=== PATIENT | female | born 1970 | race Caucasian/White ===

== ENCOUNTER → 2017-04-28 | Outpatient (CLI) | payer BC | END | disposition home or self-care (01) | LOC: C.PAPS 09:23 | PROVIDERS: ATTEND Physician Assistant | DX: Z01.411 Encounter for gynecological examination (general) (routine) with abnormal findings (principal); R87.619 Unspecified abnormal cytological findings in specimens from cervix uteri ==

== ENCOUNTER → 2017-10-21 | Outpatient (CLI) | payer BC | END | disposition home or self-care (01) | LOC: C.LABSPEC 14:10 | PROVIDERS: ATTEND Physician Assistant | DX: Z30.430 Encounter for insertion of intrauterine contraceptive device (principal) ==

== ENCOUNTER 2022-11-19 12:42 | Inpatient (IN) ==
[2022-11-19 14:09] LABS: Hematocrit (blood only) 43.7 % (37.0-47.0); Hemoglobin 15.6 g/dl (12.0-16.0); Mean Corpuscular Hemoglobin 31.2 pg (25.0-34.0); Mean Corpuscular Hgb Conc 35.7 g/dL (32.0-36.0); Mean Corpuscular Volume 87.4 fL (80.0-100.0); Mean Platelet Volume 10.3 fL (9.4-12.4); Platelet Count 238 K/uL (130-400); RDW Coefficient of Variation 12.8 % (11.5-14.5); RDW Standard Deviation 40.6 fL (36.4-46.3); White Blood Count 26.15 K/ul (4.8-10.8)
[2022-11-19 14:10] LABS: Appearance Urine Clear (Clear); Bacteria Urine Automated Negative (Negative); Bilirubin Urine Negative (Negative); Blood Urine 1+ (Negative); Color Urine Dark Yellow; Epithelial Cell Urine Auto 20-30 /lpf (0-5); Glucose Urine UA Negative (Negative); Ketones Urine 2+ (Negative); Leukocyte Esterase Urine Negative (Negative); Nitrite Urine Negative (Negative); Protein Urine 1+ (Negative); Specific Gravity Urine 1.031 (1.000-1.030); Urobilinogen Urine Negative (Negative)
[2022-11-19] MEDS ORDERED: MoRPHine SULFATE 4 MG/ML 1 ML CARP\\VIAL IV PRN (14:21)
[2022-11-19] MEDS ORDERED: ONDANSETRON INJ 2 MG/ML 2 ML VIAL IV STA (14:21)
[2022-11-19] MEDS ORDERED: SODIUM CHLORIDE 0.9% 1000ML 1,000 ML IV ONE ×2 (14:21→15:38)
[2022-11-19] MEDS ORDERED: MoRPHine SULFATE 4 MG/ML 1 ML CARP\\VIAL IV STA (14:21)
[2022-11-19 14:26] LABS: Albumin Globulin Ratio 1.2 (0.9-2); Albumin Level 4.6 gm/dl (3.4-5.0); BUN Creatinine Ratio 14.4 (10-20); Bilirubin,Total 1.1 mg/dl (0.2-1.0); Calcium 9.3 mg/dl (8.5-10.1); Creatinine Clr Calc Pharmacy 73.4 ml/min; Est GFR (African American) 77.8 ml/min; Est GFR (Non-African American) 67.2 ml/min; Globulin 3.9 gm/dl (2.5-4.0); Potassium 3.6 mmol/L (3.5-5.1); Total Protein 8.5 gm/dl (6.0-8.3)
--- NOTE | 2022-11-19 14:27 | Emergency Department Note ---
Impression & Plan Acute appendicitis, Abdominal pain ED Provider Note NAME: DOMINIC VASQUEZ AGE: 52 SEX: F : 1970 ARRIVES VIA: Walk-In INFORMANT: Patient, ED PROVIDER(S): John Hare DO CHIEF COMPLAINT: Abdominal pain HPI: The patient is a 52-year-old female who presented to the emergency department for an evaluation of abdominal pain. The patient states she started noticing abdominal pain over the last few days. Initially she started having loose bowel movements but she has not had any bowel movements over the last 24 hours. She also notes some nausea vomiting recently. She called her family doctor this morning to be seen but they were not willing to see her and stated that she would need testing but they were not willing to order so she was referred to the emergency department for further evaluation. She denies having any chest pain or difficulty breathing. ROS: See above HPI for pertinent positives & negatives. A total of 10 systems reviewed and were otherwise negative. PAST MEDICAL HISTORY: See Below PAST SURGICAL HISTORY: See Below FAMILY HISTORY: See Below SOCIAL HISTORY: See Below HOME MEDICATIONS: See Below ALLERGIES: See Below VITALS: See Below PHYSICAL EXAMINATION: GENERAL: The patient is awake and alert. The patient is very anxious appearing and appears to be uncomfortable. EYES: The conjunctivae are clear. The pupils are round and reactive. EARS, NOSE, MOUTH AND THROAT: The nose is without any evidence of any deformity. NECK: The neck is nontender and supple. RESPIRATORY: Normal respiratory effort is noted there is no evidence of wheezing rhonchi or rales CARDIOVASCULAR: Tachycardic and regular heart sounds were noted to auscultation. There is no definite murmur. GASTROINTESTINAL: The abdomen was distended and diffusely tender. There is guarding the right lower quadrant. MUSCULOSKELETAL/EXTREMITIES: There is no evidence of gross deformity full range of motion is noted in the hips and shoulders. SKIN: There is no obvious evidence of any rash. There are no petechiae, pallor or cyanosis noted. NEUROLOGIC: Patient is awake alert and oriented x3. MEDICAL DECISION MAKING: The patient is a 52-year-old female who presented to the emergency department for an evaluation of abdominal pain. The patient's history and physical exam appear to be consistent with an acute surgical abdomen. The patient had an elevated white blood cell count noted on laboratory studies. For this reason further laboratory and radiographic studies were obtained. The patient was treated with IV fluids and IV pain medication in the emergency department. She was also treated with IV antibiotics. CT of the abdomen and pelvis was obtained and appear to be consistent with ruptured appendicitis with abscess formation. I discussed the patient's condition with the on-call general surgeon. They have agreed to evaluate the patient in the emergency department for further management and disposition. Triage Nursing notes reviewed. Prior medical records reviewed Vital Signs: reviewed and remarkable for no significant abnormalities Differential diagnosis: Appendicitis, ovarian cyst, ovarian torsion, ectopic , TOA, PID, infections, diverticulitis, UTI, obstruction, mesenteric ischemia, aortic pathology, inflammatory bowel disease, renal colic, PUD, pancreatitis, biliary pathology, hernia, volvulus, constipation, as well as other pathologies. ER treatment provided: See below Diagnostics interpreted by me: ECG: EKG was obtained in the emergency department. My interpretation is sinus tachycardia 121 bpm. There is no ectopy. Nonspecific ST segment abnormalities were noted. No previous tracing was available. Cardiac Monitoring: An order was placed for continuous cardiac monitoring. The monitor shows a rate of 79 bpm with sinus rhythm. Laboratory studies: As stated above and show below. Imaging studies: See below. Radiographic imaging was reviewed by myself Consultation(s): I discussed this case with Dr Zacarias Past Med/Surg History Medical History Atypical squamous cells of undetermined significance (ASC-US) on cervical Pap smear HEYDI I (cervical intraepithelial neoplasia I) History of chicken pox History of migraine IUD (intrauterine device) in place leanna- 10/21/17 Varicose veins of legs Surgical History H/O colposcopy with cervical biopsy H/O LEEP 02/26, persistent heydi 1 History of surgical removal of skin lesion Family History Father Bleeding disorder Cardiac disorder Mother Dementia Breast cancer, Onset Age: 78 Denies family history of Ovarian cancer Colorectal cancer Social History Smoking Status: Former smoker Hx Alcohol Use: Yes Alcohol Intake Frequency Comment: 1-2 times per year Hx Substance Use: No Preferred Language: Japanese Communication Ability: Effective Visual Impairment: No Limitations Hearing Ability: Normal Customer Advocacy Manager Required: No Beliefs That Will Affect Care: None marital status: Current Living Situation: Family current occupational status: employed current occupation: self employed Feels Safe at Home: Yes Childhood Exposure to Second-Hand Smoke: Yes Dental Care, Regularly: Yes Physical Activity Frequency: Does not Exercise Seatbelt Use: always Sunscreen Use: Yes (sometimes) Allergies Allergies Allergy/AdvReac Type Severity Reaction Status Date / Time No Known Drug Allergies Allergy Verified 10/05/22 15:12 Home Meds Home Medications Medication Instructions Recorded Confirmed diphenhydramine HCl 25 mg tablet PO PRN 07/11/19 10/05/22 multivitamin [Daily Multiple] 1 ea PO DAILY 08/21/19 10/05/22 cholecalciferol (vitamin D3) PO DAILY 02/21/20 10/05/22 riboflavin (vitamin B2) PO DAILY 02/21/20 10/05/22 coenzyme Q10 100 mg capsule 100 mg PO DAILY 09/29/20 10/05/22 levonorgestrel 21 mcg/24 hours (8 intrauterine 12/25/21 10/05/22 yrs) 52 mg intrauterine device (Mirena) topiramate 100 mg tablet 50 mg PO DAILY 10/05/22 10/05/22 Previous Rx's Medication Instructions Recorded estradiol 0.01% (0.1 mg/gram) 1 g vaginal .COMPLEX #42.5 grams 01/01/22 vaginal cream famotidine 40 mg tablet See Rx Instructions .Route 01/18/22 .COMPLEX #90 tabs cyclobenzaprine 10 mg tablet 10 mg PO HS PRN muscle spasm #30 05/20/22 tabs propranolol 80 mg capsule,24 80 mg PO DAILY #30 caps 08/23/22 hr,extended release sumatriptan succinate 100 mg tablet See Rx Instructions PO .COMPLEX 11/15/22 #18 tabs Results & Data (ED) Vital Signs Vital Signs - 24 hr 11/19/22 12:48 11/19/22 14:33 11/19/22 16:59 Temperature 36.8 C 37.7 C H Temperature Source Temporal Artery Scan Oral Pulse Rate 136 H Pulse Rate [Apical] Pulse Rate [Finger] 112 H 91 H Pulse Rhythm [Apical] Pulse Rhythm [Finger] Regular Pulse Strength [Finger] Normal Respiratory Rate 22 Respiratory Effort / Characteristics Non-Labored Spontaneous Non-Labored Spontaneous Non-Labored Spontaneous Respiratory Depth Normal Normal Normal Respiratory Pattern Regular Regular Regular Blood Pressure 123/85 Blood Pressure [Left Arm] Blood Pressure [Right Arm] 125/83 141/76 H Blood Pressure Mean 97 Blood Pressure Mean [Left Arm] Blood Pressure Mean [Right Arm] 97 97 Blood Pressure Position [Left Arm] Blood Pressure Position [Right Arm] Semi-fowlers Pulse Oximetry 98 95 98 Oxygen Delivery Method Room Air Room Air Room Air Oxygen Flow Rate Sepsis Recent Fever Within 48 Hours No Sepsis New/Unexplained Change in Mental Status No Sepsis Action Taken by Nursing No Action Required 11/19/22 16:55 11/19/22 19:49 11/19/22 19:55 Temperature 37.7 C H 36.3 C L Temperature Source Oral Temporal Artery Scan Pulse Rate Pulse Rate [Apical] 85 77 Pulse Rate [Finger] 91 H Pulse Rhythm [Apical] Regular Regular Pulse Rhythm [Finger] Regular Pulse Strength [Finger] Normal Respiratory Rate 22 16 16 Respiratory Effort / Characteristics Non-Labored Spontaneous Non-Labored Spontaneous Non-Labored Spontaneous Respiratory Depth Normal Normal Normal Respiratory Pattern Regular Regular Regular Blood Pressure Blood Pressure [Left Arm] 135/77 139/77 Blood Pressure [Right Arm] 141/76 H Blood Pressure Mean Blood Pressure Mean [Left Arm] 96 97 Blood Pressure Mean [Right Arm] 97 Blood Pressure Position [Left Arm] Lying Lying Blood Pressure Position [Right Arm] Semi-fowlers Pulse Oximetry 98 96 98 Oxygen Delivery Method Room Air Oxymask Oxymask Oxygen Flow Rate 6 6 Sepsis Recent Fever Within 48 Hours Sepsis New/Unexplained Change in Mental Status Sepsis Action Taken by Nursing 11/19/22 20:05 Temperature Temperature Source Pulse Rate Pulse Rate [Apical] 79 Pulse Rate [Finger] Pulse Rhythm [Apical] Regular Pulse Rhythm [Finger] Pulse Strength [Finger] Respiratory Rate 20 Respiratory Effort / Characteristics Non-Labored Spontaneous Respiratory Depth Normal Respiratory Pattern Regular Blood Pressure Blood Pressure [Left Arm] 137/84 Blood Pressure [Right Arm] Blood Pressure Mean Blood Pressure Mean [Left Arm] 101 Blood Pressure Mean [Right Arm] Blood Pressure Position [Left Arm] Semi-fowlers Blood Pressure Position [Right Arm] Pulse Oximetry 97 Oxygen Delivery Method Nasal Cannula Oxygen Flow Rate 4 Sepsis Recent Fever Within 48 Hours Sepsis New/Unexplained Change in Mental Status Sepsis Action Taken by [facility] Medications Current Medication List: was personally reviewed by me Laboratory Data Attestation: I reviewed the patient's lab results. 11/19/22 13:45 11/19/22 13:45 Lab Results 11/19/22 11/19/22 11/19/22 Range/Units 13:45 13:45 13:45 WBC 26.15 H (4.8-10.8) K/ul RBC 5.00 (4.20-5.40) M/uL Hgb 15.6 (12.0-16.0) g/dl Hct 43.7 (37.0-47.0) % MCV 87.4 (80.0-100.0) fL MCH 31.2 (25.0-34.0) pg MCHC 35.7 (32.0-36.0) g/dL RDW Std Deviation 40.6 (36.4-46.3) fL RDW Coeff of [place] 12.8 (11.5-14.5) % Plt Count 238 (130-400) K/uL MPV 10.3 (9.4-12.4) fL Immature Gran % (Auto) 0.7 % Neut % (Auto) 92.9 % Lymph % (Auto) 2.8 % [place] % (Auto) 3.4 % Eos % (Auto) 0.0 % Baso % (Auto) 0.2 % Neut # (Auto) 24.32 H (1.40-6.50) K/uL Lymph # (Auto) 0.72 L (1.2-3.4) K/uL [place] # (Auto) 0.88 H (0.11-0.59) K/uL Eos # (Auto) 0.00 (0-0.50) K/uL Baso # (Auto) 0.04 (0-0.2) K/uL Immature Gran # (Auto) 0.19 (0.01-0.20) K/uL Toxic Vacuolation 1+ Sodium 133 L (136-145) mmol/L Potassium 3.6 (3.5-5.1) mmol/L Chloride 100 (98-107) mmol/L Carbon Dioxide 21 (21-32) mmol/L Anion Gap 12 H (3-11) BUN 14 (6-23) mg/dl Creatinine 0.97 (0.6-1.2) mg/dl Est Cr Clr Drug Dosing 73.4 ml/min Est GFR ( Amer) 77.8 ml/min Est GFR (Non-Af Amer) 67.2 ml/min BUN/Creatinine Ratio 14.4 (10-20) Glucose 166 H (70-99(Fasting)) mg/dl Calcium 9.3 (8.5-10.1) mg/dl Total Bilirubin 1.1 H (0.2-1.0) mg/dl AST 17 (13-39) U/L ALT 11 (7-52) U/L Alkaline Phosphatase 69 (34-104) U/L Troponin I High Sens 16.0 H (0-14) pg/ml Total Protein 8.5 H (6.0-8.3) gm/dl Albumin 4.6 (3.4-5.0) gm/dl Globulin 3.9 (2.5-4.0) gm/dl Albumin/Globulin Ratio 1.2 (0.9-2) Lipase 9 L (11-82) U/L HCG, Qual Negative (Negative) Urine Color Urine Appearance (Clear) Urine pH (4.5-7.5) Ur Specific [place] (1.000-1.030) Urine Protein (Negative) Urine Glucose (UA) (Negative) Urine Ketones (Negative) Urine Blood (Negative) Urine Nitrite (Negative) Urine Bilirubin (Negative) Urine Urobilinogen (Negative) Ur Leukocyte Esterase (Negative) Urine WBC (Auto) (0-5) /hpf Urine RBC (Auto) (0-4) /hpf U Hyaline Cast (Auto) (0-5) /lpf U Epithel Cells (Auto) (0-5) /lpf Urine Bacteria (Auto) (Negative) SARS-CoV-2 (PCR) (Negative) Influenza Type A (PCR) (Neg) Influenza Type B (PCR) (Neg) RSV (RT-PCR) (Neg) 11/19/22 11/19/22 Range/Units 13:50 13:50 WBC (4.8-10.8) K/ul RBC (4.20-5.40) M/uL Hgb (12.0-16.0) g/dl Hct (37.0-47.0) % MCV (80.0-100.0) fL MCH (25.0-34.0) pg MCHC (32.0-36.0) g/dL RDW Std Deviation (36.4-46.3) fL RDW Coeff of [place] (11.5-14.5) % Plt Count (130-400) K/uL MPV (9.4-12.4) fL Immature Gran % (Auto) % Neut % (Auto) % Lymph % (Auto) % [place] % (Auto) % Eos % (Auto) % Baso % (Auto) % Neut # (Auto) (1.40-6.50) K/uL Lymph # (Auto) (1.2-3.4) K/uL [place] # (Auto) (0.11-0.59) K/uL Eos # (Auto) (0-0.50) K/uL Baso # (Auto) (0-0.2) K/uL Immature Gran # (Auto) (0.01-0.20) K/uL Toxic Vacuolation Sodium (136-145) mmol/L Potassium (3.5-5.1) mmol/L Chloride (98-107) mmol/L Carbon Dioxide (21-32) mmol/L Anion Gap (3-11) BUN (6-23) mg/dl Creatinine (0.6-1.2) mg/dl Est Cr Clr Drug Dosing ml/min Est GFR ( Amer) ml/min Est GFR (Non-Af Amer) ml/min BUN/Creatinine Ratio (10-20) Glucose (70-99(Fasting)) mg/dl Calcium (8.5-10.1) mg/dl Total Bilirubin (0.2-1.0) mg/dl AST (13-39) U/L ALT (7-52) U/L Alkaline Phosphatase (34-104) U/L Troponin I High Sens (0-14) pg/ml Total Protein (6.0-8.3) gm/dl Albumin (3.4-5.0) gm/dl Globulin (2.5-4.0) gm/dl Albumin/Globulin Ratio (0.9-2) Lipase (11-82) U/L HCG, Qual (Negative) Urine Color Dark Yellow Urine Appearance Clear (Clear) Urine pH 6.0 (4.5-7.5) Ur Specific [place] 1.031 H (1.000-1.030) Urine Protein 1+ H (Negative) Urine Glucose (UA) Negative (Negative) Urine Ketones 2+ H (Negative) Urine Blood 1+ H (Negative) Urine Nitrite Negative (Negative) Urine Bilirubin Negative (Negative) Urine Urobilinogen Negative (Negative) Ur Leukocyte Esterase Negative (Negative) Urine WBC (Auto) 1-5 (0-5) /hpf Urine RBC (Auto) 5-10 H (0-4) /hpf U Hyaline Cast (Auto) 1-5 (0-5) /lpf U Epithel Cells (Auto) 20-30 H (0-5) /lpf Urine Bacteria (Auto) Negative (Negative) SARS-CoV-2 (PCR) NEGATIVE (Negative) Influenza Type A (PCR) Negative (Neg) Influenza Type B (PCR) Negative (Neg) RSV (RT-PCR) Negative (Neg) Administered Medications Fentanyl Citrate (Fentanyl Citrate 100 Mcg/2 Ml Vial) 50 mcg IV Q5M PRN PRN Reason: PACU Use Only-Pain Stop: 11/20/22 01:14 Last Admin: 11/19/22 20:14 Dose: 50 mcg Documented By: [facility] Discontinued Medications Bacitracin (Bacitracin Oint 15 Gm Tube) Confirm Administered Dose 45 appln .ROUTE .STK-MED ONE Stop: 11/19/22 16:23 Last Admin: 11/19/22 19:45 Dose: 45 appln Documented By: QASIM Bupivacaine HCl (Bupivacaine 0.5 % 5 Mg/1 Ml Mpf 30ml Vial) Confirm Administered Dose 30 ml .ROUTE .STK-MED ONE Stop: 11/19/22 16:23 Last Admin: 11/19/22 19:19 Dose: 20 ml Documented By: QASIM Sodium Chloride (Nss 1000ml) 1,000 mls @ 999 mls/hr IV .Q1H1M ONE Stop: 11/19/22 15:21 Last Infusion: 11/19/22 15:57 Dose: 0 mls/hr Documented By: Admin: 11/19/22 14:28 Dose: 999 mls/hr Documented By: ALFREDO Piperacillin Sod/Tazobactam Sod (Zosyn) 4.5 gm in 120 mls @ 240 mls/hr IV NOW ONE Stop: 11/19/22 16:07 Last Admin: 11/19/22 15:54 Dose: 240 mls/hr Documented By: JORGITO Sodium Chloride (Nss 1000ml) 1,000 mls @ 999 mls/hr IV .Q1H1M ONE Stop: 11/19/22 16:38 Last Admin: 11/19/22 15:54 Dose: 999 mls/hr Documented By: JORGITO Ioversol (Optiray 350 100ml) 90 ml IV ONCE ONE Stop: 11/19/22 15:30 Last Admin: 11/19/22 15:29 Dose: 90 ml Documented By: MAIKOL Lidocaine HCl (Lidocaine 1% Local 20 Ml Vial) Confirm Administered Dose 1 ml .ROUTE .STK-MED ONE Stop: 11/19/22 16:41 Last Admin: 11/19/22 19:20 Dose: 20 ml Documented By: QASIM Morphine Sulfate (Morphine Sulfate 4 Mg/Ml 1 Ml Carp\Vial) 4 mg IV NOW STA Stop: 11/19/22 14:22 Last Admin: 11/19/22 14:29 Dose: 4 mg Documented By: ALFREDO Ondansetron HCl (Ondansetron Inj 2 Mg/Ml 2 Ml Vial) 4 mg IV NOW STA Stop: 11/19/22 14:22 Last Admin: 11/19/22 14:28 Dose: 4 mg Documented By: ALFREDO Vancomycin HCl (Vancomycin Hcl 1000mg/20ml Vial) Confirm Administered Dose 50 mg .ROUTE .STK-MED ONE Stop: 11/19/22 18:13 Last Admin: 11/19/22 19:19 Dose: 1,000 mg Documented By: QASIM Imaging Data Radiologist's Impression: Abdomen/Pelvis CT 11/19/22 14:21 CT SCAN OF THE ABDOMEN AND PELVIS WITH IV CONTRAST CLINICAL HISTORY: Right lower quadrant abdominal pain. COMPARISON STUDY: No priors. TECHNIQUE: Following the IV administration of 90 cc of Optiray 350, CT scan of the abdomen and pelvis is performed from the lung bases to the proximal femora. Images are reviewed in the axial, sagittal, and coronal planes. IV contrast was administered without complication. A dose lowering technique was utilized adhering to the principles of ALARA. CT DOSE: 722.62 mGycm FINDINGS: Lung bases: The heart is normal in size and without pericardial effusion. The lung bases are clear noting dependent atelectasis. There is a small hiatal hernia. Liver: The contrast-enhanced liver is normal in size, contour, and attenuation. There is no intrahepatic biliary ductal dilatation. The hepatic veins and portal veins are patent. Gallbladder: Unremarkable. Spleen: Normal in size and attenuation. Pancreas: Unremarkable. Adrenal glands: Unremarkable. Kidneys: The contrast enhanced kidneys are normal in size and without hydronephrosis. The kidneys enhance symmetrically. There are bilateral renal sinus cysts. A 12 mm cortical cyst is noted in the left upper pole. Abdominal vasculature: The abdominal aorta is normal in course and caliber noting scattered foci of atherosclerotic calcification. Bowel: There is no bowel obstruction. There is evidence of severe acute perforated appendicitis. A portion of the abnormal and dilated appendix is seen on image #270 and measures 16mm in diameter. There is significant surrounding inflammation and fluid. A crescentic pocket of gas and fluid seen immediately posterior to the appendix on image #243 measures 3.8 x 3.1 x 4.3 cm. This likely represents a developing abscess. There is wall thickening of the cecum and terminal ileum, related to adjacent appendicitis. Peritoneum: Foci of intraperitoneal free air are seen in the right lower quadrant adjacent to the perforated appendix. There is fluid tracking in the right paracolic gutter. Lymphadenopathy: Prominent mesenteric lymph nodes in the right lower quadrant are likely reactive. Pelvic viscera: The bladder, uterus, and adnexa are normal as visualized noting an intrauterine device in place. Skeletal structures: No lytic or blastic lesions are seen. There is mild lumbosacral spondylosis. Soft tissues: A 3.3 cm sebaceous cyst is noted in the left lower back. IMPRESSION: 1. Severe acute appendicitis with perforation as detailed above. 2. Foci of intraperitoneal free air are seen in the right lower quadrant and a crescentic pocket of gas and fluid around the appendix is consistent with a developing abscess. No drainable collection is seen at this time. 3. Wall thickening and inflammation of the cecum and terminal ileum is related to adjacent appendicitis. 4. There is no bowel obstruction. 5. Additional findings as above. ACT 112: Negative or not required by law. Electronically signed by: Ravinder Mora M.D. 11/19/2022 3:41 PM Discharge Plan Visit Data Chief Complaint: Abdominal Pain Stated Complaint: ABD PAIN, VOMITING, DR REF OVER ED Provider: John Hare Discharge Problem: Acute appendicitis, Abdominal pain Patient Disposition: Being Evaluated by Surgeon Discharge Instructions Interventions: ED Discharge Assessment Last Done: 11/19/22 18:07
[2022-11-19 14:32] LABS: Basophils # (auto) 0.04 K/uL (0-0.2); Basophils % (auto) 0.2 %; Immature Granulocytes # (auto) 0.19 K/uL (0.01-0.20); Immature Granulocytes % (auto) 0.7 %; Lymphocytes # (auto) 0.72 K/uL (1.2-3.4); Lymphocytes % (auto) 2.8 %; Monocytes # (auto) 0.88 K/uL (0.11-0.59); Monocytes % (auto) 3.4 %; Neutrophils # (auto) 24.32 K/uL (1.40-6.50); Neutrophils % (auto) 92.9 %; Toxic Vacuolation 1+
[2022-11-19 14:43] LABS: Influenza A virus by PCR Negative (Neg); Influenza B virus by PCR Negative (Neg); RSV by PCR Negative (Neg); SARS CoV2 RNA(COVID-19) Ceph NEGATIVE (Negative)
[2022-11-19 15:26] LABS: Pregnancy Test, Serum Negative (Negative)
[2022-11-19] MEDS ORDERED: OPTIRAY 350 100ml IV ONE (15:29)
[2022-11-19] MEDS ORDERED: PIPERACILLIN/TAZOBACTAM 4.5 GM/120 ML BAG IV ONE (15:38)
--- NOTE | 2022-11-19 15:43 | CT Scan Report ---
CT SCAN OF THE ABDOMEN AND PELVIS WITH IV CONTRAST CLINICAL HISTORY: Right lower quadrant abdominal pain. COMPARISON STUDY: No priors. TECHNIQUE: Following the IV administration of 90 cc of Optiray 350, CT scan of the abdomen and pelvi s is performed from the lung bases to the proximal femora. Images are reviewed in the axial, sagittal , and coronal planes. IV contrast was administered without complication. A dose lowering technique wa s utilized adhering to the principles of ALARA. CT DOSE: 722.62 mGycm FINDINGS: Lung bases: The heart is normal in size and without pericardial effusion. The lung bases are clear no ting dependent atelectasis. There is a small hiatal hernia. Liver: The contrast-enhanced liver is normal in size, contour, and attenuation. There is no intrahepa tic biliary ductal dilatation. The hepatic veins and portal veins are patent. Gallbladder: Unremarkable. Spleen: Normal in size and attenuation. Pancreas: Unremarkable. Adrenal glands: Unremarkable. Kidneys: The contrast enhanced kidneys are normal in size and without hydronephrosis. The kidneys enh ance symmetrically. There are bilateral renal sinus cysts. A 12 mm cortical cyst is noted in the left upper pole. Abdominal vasculature: The abdominal aorta is normal in course and caliber noting scattered foci of a therosclerotic calcification. Bowel: There is no bowel obstruction. There is evidence of severe acute perforated appendicitis. A po rtion of the abnormal and dilated appendix is seen on image #270 and measures 16mm in diameter. There is significant surrounding inflammation and fluid. A crescentic pocket of gas and fluid seen immedia tely posterior to the appendix on image #243 measures 3.8 x 3.1 x 4.3 cm. This likely represents a de veloping abscess. There is wall thickening of the cecum and terminal ileum, related to adjacent appen dicitis. Peritoneum: Foci of intraperitoneal free air are seen in the right lower quadrant adjacent to the per forated appendix. There is fluid tracking in the right paracolic gutter. Lymphadenopathy: Prominent mesenteric lymph nodes in the right lower quadrant are likely reactive. Pelvic viscera: The bladder, uterus, and adnexa are normal as visualized noting an intrauterine devic e in place. Skeletal structures: No lytic or blastic lesions are seen. There is mild lumbosacral spondylosis. Soft tissues: A 3.3 cm sebaceous cyst is noted in the left lower back. IMPRESSION: 1. Severe acute appendicitis with perforation as detailed above. 2. Foci of intraperitoneal free air are seen in the right lower quadrant and a crescentic pocket of g as and fluid around the appendix is consistent with a developing abscess. No drainable collection is seen at this time. 3. Wall thickening and inflammation of the cecum and terminal ileum is related to adjacent appendicit is. 4. There is no bowel obstruction. 5. Additional findings as above. ACT 112: Negative or not required by law. Electronically signed by: Ravinder Mora M.D. 11/19/2022 3:41 PM
[2022-11-19] MEDS ORDERED: BUPIVACAINE 0.5 % 5 MG/1 ML MPF 30ML VIAL ONE (16:22)
[2022-11-19] MEDS ORDERED: BACITRACIN OINT 15 GM TUBE ONE (16:22)
[2022-11-19] MEDS ORDERED: ONDANSETRON INJ 2 MG/ML 2 ML VIAL ONE (16:40)
[2022-11-19] MEDS ORDERED: LIDOCAINE 1% LOCAL 20 ML VIAL ONE (16:40)
[2022-11-19] MEDS ORDERED: LIDOCAINE 2% MPF LOCAL 5 ML VIAL INFIL ONE (16:40)
[2022-11-19] MEDS ORDERED: PROPOFOL IV EMULSION 10 MG/ML 20 ML VIAL IV ONE (16:40)
[2022-11-19] MEDS ORDERED: ROCURONIUM BROMIDE 10 MG/ML 5 ML VIAL IV ONE (16:40)
[2022-11-19] MEDS ORDERED: DEXAMETHASONE SOD INJ 4 MG/ML VIAL ONE (16:40)
[2022-11-19] MEDS ORDERED: fentaNYL citrate 100 MCG/2 ML VIAL ONE ×2 (16:41→18:14)
[2022-11-19] MEDS ORDERED: MIDAZOLAM HCL 1 MG/ML 2ML VIAL ONE (16:41)
--- NOTE | 2022-11-19 17:02 | Surgery Consultation ---
Date of Consultation November 19, 2022 Assessment & Plan (1) Perforated appendicitis: pt is a 52 year-old female who presents to ER with 2 days history RLQ pain, CT scan - perforated appendicitis, IMP: perforated appendicitis, plan, I recommend to do laparoscopic appendectomy, possible open , D/W benefits, risks and alternatives of the surgery, the risks - infection, bleeding, abscess, bowel leak, bowel obstruction, scar, pain, sepsis,renal failure pt understood, she signed informed consent, I answered all questions, pre-op iv antibiotic, History of Present Illness Reason for Consultation: perforated appendicitis Requesting Physician: John Hare DO History of Present Illness CHIEF COMPLAINT: Abdominal pain HPI: The patient is a 52-year-old female who presented to the emergency department for an evaluation of abdominal pain. The patient states she started noticing abdominal pain over the last few days. Initially she started having loose bowel movements but she has not had any bowel movements over the last 24 hours. She also notes some nausea vomiting recently. She called her family doctor this morning to be seen but they were not willing to see her and stated that she would need testing but they were not willing to order so she was r eferred to the emergency department for further evaluation. She denies having any chest pain or difficulty breathing. I ( Cayla Zacarias MD ) got a call for consult perforated appendicitis, I reviewed pt's H/P , labs and CT scan with pt, ROS: See above HPI for pertinent positives & negatives. A total of 10 systems reviewed and were otherwise negative. Allergies Allergy/AdvReac Type Severity Reaction Status Date / Time No Known Drug Allergies Allergy Verified 10/05/22 15:12 Home Medications Medication Instructions Recorded Confirmed Type diphenhydramine HCl 25 mg tablet PO PRN 07/11/19 10/05/22 History multivitamin [Daily Multiple] 1 ea PO DAILY 08/21/19 10/05/22 History cholecalciferol (vitamin D3) PO DAILY 02/21/20 10/05/22 History riboflavin (vitamin B2) PO DAILY 02/21/20 10/05/22 History coenzyme Q10 100 mg capsule 100 mg PO DAILY 09/29/20 10/05/22 History levonorgestrel 21 mcg/24 hours (8 intrauterine 12/25/21 10/05/22 History yrs) 52 mg intrauterine device (Mirena) estradiol 0.01% (0.1 mg/gram) 1 g vaginal .COMPLEX #42.5 grams 01/01/22 10/05/22 Rx vaginal cream famotidine 40 mg tablet See Rx Instructions .Route 01/18/22 10/05/22 Rx .COMPLEX #90 tabs cyclobenzaprine 10 mg tablet 10 mg PO HS PRN muscle spasm #30 05/20/22 10/05/22 Rx tabs propranolol 80 mg capsule,24 80 mg PO DAILY #30 caps 08/23/22 10/05/22 Rx hr,extended release topiramate 100 mg tablet 50 mg PO DAILY 10/05/22 10/05/22 History sumatriptan succinate 100 mg tablet See Rx Instructions PO .COMPLEX 11/15/22 Rx #18 tabs Patient History Medical History Atypical squamous cells of undetermined significance (ASC-US) on cervical Pap smear HEYDI I (cervical intraepithelial neoplasia I) History of chicken pox History of migraine IUD (intrauterine device) in place leanna- 10/21/17 Varicose veins of legs Surgical History H/O colposcopy with cervical biopsy H/O LEEP 02/26, persistent heydi 1 History of surgical removal of skin lesion Family History Father Bleeding disorder Cardiac disorder Mother Dementia Breast cancer, Onset Age: 78 Denies family history of Ovarian cancer Colorectal cancer Social History Smoking Status: Former smoker Hx Alcohol Use: Yes Alcohol Intake Frequency Comment: 1-2 times per year Hx Substance Use: No Preferred Language: Yakut Communication Ability: Effective Visual Impairment: No Limitations Hearing Ability: Normal Cooker Meal Required: No Beliefs That Will Affect Care: None marital status: Current Living Situation: Family current occupational status: employed current occupation: self employed Feels Safe at Home: Yes Childhood Exposure to Second-Hand Smoke: Yes Dental Care, Regularly: Yes Physical Activity Frequency: Does not Exercise Seatbelt Use: always Sunscreen Use: Yes (sometimes) Physical Exam Constitutional: acute distress, HR 112, T 36.8, BP 125/83, o2 sat 95 % Eyes: PERRL, conjunctivae normal, anicteric sclerae Neck: trachea midline, no thyromegaly Respiratory: normal respiratory effort, lungs clear to auscultation Cardiovascular: RRR, no murmur, no edema Gastrointestinal (Abdomen): soft, tenderness with rebound pain at RLQ, no distend, BS +, Musculoskeletal: no cyanosis or clubbing, extremities motor strength 5/5 Neurologic: patellar DTR's 2+ bilat, sensation intact Psychiatric: A+Ox3, euthymic affect Results & Data ([facility]) Vital Signs (Past 12 Hours) Vital Signs Temp Pulse Pulse Resp BP BP Pulse Ox 11/19/22 16:55 37.7 C H 91 H 22 141/76 H 98 11/19/22 14:33 112 H 18 125/83 95 11/19/22 12:48 36.8 C 136 H 20 123/85 98 O2 Del Method 11/19/22 16:55 Room Air 11/19/22 14:33 Room Air 11/19/22 12:48 Room Air Laboratory Results Abnormal lab results 11/19/22 11/19/22 11/19/22 Range/Units 13:45 13:45 13:50 WBC 26.15 H (4.8-10.8) K/ul Neut # (Auto) 24.32 H (1.40-6.50) K/uL Lymph # (Auto) 0.72 L (1.2-3.4) K/uL [place] # (Auto) 0.88 H (0.11-0.59) K/uL Sodium 133 L (136-145) mmol/L Anion Gap 12 H (3-11) Glucose 166 H (70-99(Fasting)) mg/dl Total Bilirubin 1.1 H (0.2-1.0) mg/dl Troponin I High Sens 16.0 H (0-14) pg/ml Total Protein 8.5 H (6.0-8.3) gm/dl Lipase 9 L (11-82) U/L Ur Specific [place] 1.031 H (1.000-1.030) Urine Protein 1+ H (Negative) Urine Ketones 2+ H (Negative) Urine Blood 1+ H (Negative) Urine RBC (Auto) 5-10 H (0-4) /hpf U Epithel Cells (Auto) 20-30 H (0-5) /lpf Diagnostic Findings CT SCAN OF THE ABDOMEN AND PELVIS WITH IV CONTRAST CLINICAL HISTORY: Right lower quadrant abdominal pain. COMPARISON STUDY: No priors. TECHNIQUE: Following the IV administration of 90 cc of Optiray 350, CT scan of the abdomen and pelvis is performed from the lung bases to the proximal femora. Images are reviewed in the axial, sagittal, and coronal planes. IV contrast was administered without complication. A dose lowering technique was utilized adhering to the principles of ALARA. CT DOSE: 722.62 mGycm FINDINGS: Lung bases: The heart is normal in size and without pericardial effusion. The lung bases are clear noting dependent atelectasis. There is a small hiatal hernia. Liver: The contrast-enhanced liver is normal in size, contour, and attenuation. There is no intrahepatic biliary ductal dilatation. The hepatic veins and portal veins are patent. Gallbladder: Unremarkable. Spleen: Normal in size and attenuation. Pancreas: Unremarkable. Adrenal glands: Unremarkable. Kidneys: The contrast enhanced kidneys are normal in size and without hydronephrosis. The kidneys enhance symmetrically. There are bilateral renal sinus cysts. A 12 mm cortical cyst is noted in the left upper pole. Abdominal vasculature: The abdominal aorta is normal in course and caliber noting scattered foci of atherosclerotic calcification. Bowel: There is no bowel obstruction. There is evidence of severe acute perforated appendicitis. A portion of the abnormal and dilated appendix is seen on image #270 and measures 16mm in diameter. There is significant surrounding inflammation and fluid. A crescentic pocket of gas and fluid seen immediately posterior to the appendix on image #243 measures 3.8 x 3.1 x 4.3 cm. This likely represents a developing abscess. There is wall thickening of the cecum and te rminal ileum, related to adjacent appendicitis. Peritoneum: Foci of intraperitoneal free air are seen in the right lower quadrant adjacent to the perforated appendix. There is fluid tracking in the r ight paracolic gutter. Lymphadenopathy: Prominent mesenteric lymph nodes in the right lower quadrant are likely reactive. Pelvic viscera: The bladder, uterus, and adnexa are normal as visualized noting an intrauterine device in place. Skeletal structures: No lytic or blastic lesions are seen. There is mild lumbosacral spondylosis. Soft tissues: A 3.3 cm sebaceous cyst is noted in the left lower back. IMPRESSION: 1. Severe acute appendicitis with perforation as detailed above. 2. Foci of intraperitoneal free air are seen in the right lower quadrant and a crescentic pocket of gas and fluid around the appendix is consistent with a developing abscess. No drainable collection is seen at this time. 3. Wall thickening and inflammation of the cecum and terminal ileum is related to adjacent appendicitis. 4. There is no bowel obstruction. 5. Additional findings as above.
--- NOTE | 2022-11-19 17:07 | History & Physical Bridge Note ---
Date of Service November 19, 2022 History & Physical Bridge Note I have examined the patient, reviewed the History & Physical and in the interval since the performance of the History & Physical I have noted the following changes of clinical significance: no changes noted
--- NOTE | 2022-11-19 17:12 | Anesthesiology Consultation ---
Date of Service November 19, 2022 Assessment & Plan Chart Review Chart Review: Acceptable Risk for Surgery Consults Requested none History Surgery Operation Date: 11/19/22 15:35 Proposed Procedures p Perforated Laparoscopic Appendectomy - Cayla Zacarias MD Height/Weight Height: 5 ft 10 in Weight: 78.2 kg Allergies Allergy/AdvReac Type Severity Reaction Status Date / Time No Known Drug Allergies Allergy Verified 10/05/22 15:12 Medications Home Medications Medication Instructions Recorded Confirmed Last Taken diphenhydramine HCl 25 mg tablet PO PRN 07/11/19 10/05/22 Unknown multivitamin [Daily Multiple] 1 ea PO DAILY 08/21/19 10/05/22 Unknown cholecalciferol (vitamin D3) PO DAILY 02/21/20 10/05/22 Unknown riboflavin (vitamin B2) PO DAILY 02/21/20 10/05/22 Unknown coenzyme Q10 100 mg capsule 100 mg PO DAILY 09/29/20 10/05/22 Unknown levonorgestrel 21 mcg/24 hours (8 intrauterine 12/25/21 10/05/22 Unknown yrs) 52 mg intrauterine device (Mirena) estradiol 0.01% (0.1 mg/gram) 1 g vaginal .COMPLEX #42.5 grams 01/01/22 10/05/22 Unknown vaginal cream famotidine 40 mg tablet See Rx Instructions .Route 01/18/22 10/05/22 Unknown .COMPLEX #90 tabs cyclobenzaprine 10 mg tablet 10 mg PO HS PRN muscle spasm #30 05/20/22 10/05/22 Unknown tabs propranolol 80 mg capsule,24 80 mg PO DAILY #30 caps 08/23/22 10/05/22 Unknown hr,extended release topiramate 100 mg tablet 50 mg PO DAILY 10/05/22 10/05/22 Unknown sumatriptan succinate 100 mg tablet See Rx Instructions PO .COMPLEX 11/15/22 Unknown #18 tabs NPO Date Last Intake of Fluids: 11/19/22 Time Last Intake of Fluids: 12:00 Date Last Intake of Solids: 11/18/22 Time Last Intake of Solids: 08:00 Past Medical History Medical History Atypical squamous cells of undetermined significance (ASC-US) on cervical Pap smear HEYDI I (cervical intraepithelial neoplasia I) History of chicken pox History of migraine IUD (intrauterine device) in place leanna- 10/21/17 Varicose veins of legs Past Family History Family History Father Bleeding disorder Cardiac disorder Mother Dementia Breast cancer, Onset Age: 78 Denies family history of Ovarian cancer Colorectal cancer Past Surgical History Surgical History H/O colposcopy with cervical biopsy H/O LEEP 02/26, persistent heydi 1 History of surgical removal of skin lesion Social History Smoking Status: Former smoker Hx Alcohol Use: Yes Hx Substance Use: No Physical Exam Vital Signs Last Vital Signs Temp 37.7 C H 11/19/22 16:59 Pulse 91 H 11/19/22 16:59 Resp 22 11/19/22 16:59 BP 141/76 H 11/19/22 16:59 Pulse Ox 98 11/19/22 16:59 O2 Del Method 11/19/22 16:59 Testing Laboratory Results 11/19/22 13:45 11/19/22 13:45 Urine Color Dark Yellow 11/19/22 13:50 Urine Appearance Clear (Clear) 11/19/22 13:50 Urine pH 6.0 (4.5-7.5) 11/19/22 13:50 Ur Specific [place] 1.031 (1.000-1.030) H 11/19/22 13:50 Urine Protein 1+ (Negative) H 11/19/22 13:50 Urine Glucose (UA) Negative (Negative) 11/19/22 13:50 Urine Ketones 2+ (Negative) H 11/19/22 13:50 Urine Nitrite Negative (Negative) 11/19/22 13:50 Ur Leukocyte Esterase Negative (Negative) 11/19/22 13:50 Urine WBC (Auto) 1-5 /hpf (0-5) 11/19/22 13:50 Urine RBC (Auto) 5-10 /hpf (0-4) H 11/19/22 13:50 U Hyaline Cast (Auto) 1-5 /lpf (0-5) 11/19/22 13:50 U Epithel Cells (Auto) 20-30 /lpf (0-5) H 11/19/22 13:50 Urine Bacteria (Auto) Negative (Negative) 11/19/22 13:50
[2022-11-19] MEDS ORDERED: ePHEDrine sulfate 50 MG/ML AMP IV PRN (17:14)
[2022-11-19] MEDS ORDERED: HYDROmorphone INJ 2 MG/ML SYR/VIAL IV PRN (17:14)
[2022-11-19] MEDS ORDERED: PROMETHAZINE HCL 12.5 MG in SODIUM CHLORIDE 0.9% 50 ML IV PRN (17:14)
[2022-11-19] MEDS ORDERED: ATROPINE SULFATE 0.1 MG/ML 10ML SYR IV PRN (17:14)
[2022-11-19] MEDS ORDERED: ONDANSETRON INJ 2 MG/ML 2 ML VIAL IV PRN (17:14)
--- NOTE | 2022-11-19 17:29 | Electrocardiogram Report ---
Test Reason : Blood Pressure : / mmHG Vent. Rate : 121 BPM Atrial Rate : 121 BPM P-R Int : 132 ms QRS Dur : 076 ms QT Int : 302 ms P-R-T Axes : 063 001 012 degrees QTc Int : 428 ms Poor data quality, interpretation may be adversely affected Sinus tachycardia Borderline ECG No previous ECGs available Confirmed by Domenic Chandra ([id number]) on 11/19/2022 5:28:51 PM Referred By: Confirmed By:Domenic Chandra
[2022-11-19] MEDS ORDERED: VANCOMYCIN HCL 1000MG/20ML VIAL ONE (18:12)
--- NOTE | 2022-11-19 19:36 | Post Operative Brief Note ---
Immediate Post Op Note v1 Date of Surgery November 19, 2022 Pre & Post Diagnosis Operation Date: 11/19/22 15:35 Pre-Op Diagnosis: perforated appendicitis, sepsis Post-Op Diagnosis: perforated appendicitis, sepsis I identified the patient and participated in the time-out.: Yes Procedure Operation Date: 11/19/22 15:35 Actual Procedures Laparoscopic Appendectomy, converted to open(Not Applicable) - Cayla Zacarias MD Surgeon Cayla Zacarias MD Biometric Screener surgical manager Estimated Blood Loss 20 Findings Consistent with Post-Op Diagnosis perforated appendicitis with gangrenous appendix, abscess, Fluids 2800ml Specimens appendix Drains Pziarro Catheter and Romaine-Rojas Drain (x's 2 ) Anesthesia Type General Complications none Disposition Accompanied Patient To Recovery: Yes
[2022-11-19] MEDS: fentaNYL citrate 100 MCG/2 ML VIAL IV PRN ×2 (20:14→20:19)
--- NOTE | 2022-11-19 21:12 | Anesthesiology Progress Note ---
Date of Service November 19, 2022 Anesthesia Post Procedure Vital Signs Vital Signs: Temp Pulse Pulse Pulse Resp BP BP 11/19/22 20:50 81 14 132/72 11/19/22 20:35 37.1 C 86 24 128/72 11/19/22 20:25 85 15 126/74 11/19/22 20:15 81 14 130/74 11/19/22 20:05 79 20 137/84 11/19/22 19:55 77 16 139/77 11/19/22 19:49 36.3 C L 85 16 135/77 11/19/22 16:55 37.7 C H 91 H 22 11/19/22 16:59 37.7 C H 91 H 22 11/19/22 14:33 112 H 18 11/19/22 12:48 36.8 C 136 H 20 123/85 BP Pulse Ox O2 Del Method O2 Flow Rate 11/19/22 20:50 95 Nasal Cannula 2 11/19/22 20:35 96 Nasal Cannula 2 11/19/22 20:25 95 Nasal Cannula 2 11/19/22 20:15 97 Nasal Cannula 4 11/19/22 20:05 97 Nasal Cannula 4 11/19/22 19:55 98 Oxymask 6 11/19/22 19:49 96 Oxymask 6 11/19/22 16:55 141/76 H 98 Room Air 11/19/22 16:59 141/76 H 98 Room Air 11/19/22 14:33 125/83 95 Room Air 11/19/22 12:48 98 Room Air Pain Intensity Right Upper Abdomen: Pain Intensity: 2 Transfer of Care Handoff Completed per policy Notes Mental Status: alert / awake / arousable and participated in evaluation Patient Amnestic to Procedure: Yes Nausea / Vomiting: adequately controlled Pain: adequately controlled Airway Patency, RR, SpO2: stable & adequate BP & HR: stable & adequate Hydration State: stable & adequate Anesthetic Complications: no major complications apparent
[2022-11-19] MEDS ORDERED: HYDROmorphone INJ 1 MG/ML SYRINGE IV PRN (21:21)
[2022-11-19] MEDS ORDERED: CYCLOBENZAPRINE HCL 10 MG TAB PO PRN (21:21)
[2022-11-19] MEDS ORDERED: SUMAtriptan succinate 100 MG TAB PO PRN (21:21)
[2022-11-19] MEDS ORDERED: diphenhydrAMINE Capsule 25 MG CAP PO PRN (21:45)
[2022-11-19] MEDS ORDERED: LEVONORGESTREL (MIRENA) IUD PV SCH (21:45)
[2022-11-19] MEDS: D5W AND 1/2NSS + 20MEQ KCL 20 MEQ/1,000 ML BAG IV SCH (22:06)
[2022-11-19] MEDS: PIPERACILLIN/TAZOBACTAM 3.375 GM in DEXTROSE 5% 100 ML IV SCH (22:06)
[2022-11-20] MEDS: PIPERACILLIN/TAZOBACTAM 3.375 GM in DEXTROSE 5% 100 ML IV SCH ×3 (06:10→22:09)
[2022-11-20] MEDS: [UNRECOGNIZED DRUG - REMARK] SCH ×2 (07:12→15:07)
[2022-11-20] MEDS: D5W AND 1/2NSS + 20MEQ KCL 20 MEQ/1,000 ML BAG IV SCH ×2 (07:40→17:31)
[2022-11-20] MEDS: TOPIRAMATE 50 MG TAB PO SCH (08:24)
[2022-11-20] MEDS: PROPRANOLOL HCL LA 80 MG CAPCR PO SCH (08:25)
[2022-11-20] MEDS: MULTIVITAMIN TAB PO SCH (08:25)
[2022-11-20] MEDS: FAMOTIDINE 40 MG TABLET PO SCH (08:25)
[2022-11-20] MEDS ORDERED: CHOLECALCIFEROL PO SCH (09:00)
[2022-11-20] MEDS ORDERED: RIBOFLAVIN PO SCH (09:00)
[2022-11-20] MEDS ORDERED: NON-FORMULARY MEDICATION (Coenzyme Q10 100 mg capsule) PO SCH (09:00)
[2022-11-20 09:15] LABS: Hematocrit (blood only) 38.3 % (37.0-47.0); Hemoglobin 13.5 g/dl (12.0-16.0); Mean Corpuscular Hemoglobin 31.3 pg (25.0-34.0); Mean Corpuscular Hgb Conc 35.2 g/dL (32.0-36.0); Mean Corpuscular Volume 88.7 fL (80.0-100.0); Mean Platelet Volume 10.1 fL (9.4-12.4); Platelet Count 194 K/uL (130-400); RDW Coefficient of Variation 12.9 % (11.5-14.5); RDW Standard Deviation 42.2 fL (36.4-46.3); Red Blood Count 4.32 M/uL (4.20-5.40)
[2022-11-20 09:42] LABS: Albumin Globulin Ratio 1.1 (0.9-2); Albumin Level 3.3 gm/dl (3.4-5.0); BUN Creatinine Ratio 9.1 (10-20); Bilirubin,Total 0.7 mg/dl (0.2-1.0); Calcium 8.3 mg/dl (8.5-10.1); Creatinine Clr Calc Pharmacy 92.4 ml/min; Est GFR (African American) 102.9 ml/min; Est GFR (Non-African American) 88.8 ml/min; Globulin 3.1 gm/dl (2.5-4.0); Potassium 3.5 mmol/L (3.5-5.1); Total Protein 6.4 gm/dl (6.0-8.3)
[2022-11-20 10:07] LABS: Basophils # (auto) 0.02 K/uL (0-0.2); Basophils % (auto) 0.1 %; Immature Granulocytes # (auto) 0.09 K/uL (0.01-0.20); Immature Granulocytes % (auto) 0.5 %; Lymphocytes # (auto) 0.73 K/uL (1.2-3.4); Lymphocytes % (auto) 4.1 %; Monocytes # (auto) 0.75 K/uL (0.11-0.59); Monocytes % (auto) 4.2 %; Neutrophils # (auto) 16.21 K/uL (1.40-6.50); Neutrophils % (auto) 91.1 %
[2022-11-20] MEDS: PANTOprazole 40 MG in SYRINGE 0 ML IV SCH (10:21)
--- NOTE | 2022-11-20 11:53 | Surgery Progress Note ---
Date of Service November 20, 2022 Assessment & Plan (1) Perforated appendicitis: Plan: pt is a 52 year-old female who presents to ER with 2 days history RLQ pain, CT scan - perforated appendicitis, IMP: perforated appendicitis, plan, I recommend to do laparoscopic appendectomy, possible open , D/W benefits, risks and alternatives of the surgery, the risks - infection, bleeding, abscess, bowel leak, bowel obstruction, scar, pain, sepsis,renal failure pt understood, she signed informed consent, I answered all questions, pre-op iv antibiotic, 11/20/2022 11:[address] Zacarias F/U S/P appendectomy, POD 1 doing fine, good control pain, clear diet, OOB continue iv antibiotic, will F/U, Admission and Anticipated Discharge Date Admission Date: November 19, 2022 Subjective F/U open appendectomy for perforated appendicitis with 2 RAJIV drainage, POD 1 pt feels better, less abdominal pain, no fever, I update about OR finding to pt. RAJIV 200ml clear Physical Exam Eyes: PERRL, conjunctivae normal, anicteric sclerae Neck: trachea midline, no thyromegaly Respiratory: normal respiratory effort, lungs clear to auscultation Cardiovascular: RRR, no murmur, no edema Gastrointestinal (Abdomen): soft, mild tenderness at incision site, no rebound pain, no distend, BS +, 2 RAJIV intact, Musculoskeletal: no cyanosis or clubbing, extremities motor strength 5/5 Neurologic: patellar DTR's 2+ bilat, sensation intact Psychiatric: A+Ox3, euthymic affect Results & Data ([facility]) Vital Signs (Past 12 Hours) Vital Signs Temp Pulse Resp BP Pulse Ox O2 Del Method O2 Flow Rate 11/20/22 11:04 36.7 C 72 18 126/82 94 Room Air 11/20/22 07:35 Nasal Cannula 2 11/20/22 07:24 36.2 C L 93 H 15 116/73 95 Nasal Cannula 2 11/20/22 03:00 37.5 C 101 H 18 116/73 94 Nasal Cannula 2 Laboratory Results Abnormal lab results 11/19/22 11/19/22 11/19/22 Range/Units 13:45 13:45 13:50 WBC 26.15 H (4.8-10.8) K/ul Neut # (Auto) 24.32 H (1.40-6.50) K/uL Lymph # (Auto) 0.72 L (1.2-3.4) K/uL [place] # (Auto) 0.88 H (0.11-0.59) K/uL Sodium 133 L (136-145) mmol/L Chloride (98-107) mmol/L Anion Gap 12 H (3-11) BUN/Creatinine Ratio (10-20) Glucose 166 H (70-99(Fasting)) mg/dl Calcium (8.5-10.1) mg/dl Total Bilirubin 1.1 H (0.2-1.0) mg/dl AST (13-39) U/L Troponin I High Sens 16.0 H (0-14) pg/ml Total Protein 8.5 H (6.0-8.3) gm/dl Albumin (3.4-5.0) gm/dl Lipase 9 L (11-82) U/L Ur Specific [place] 1.031 H (1.000-1.030) Urine Protein 1+ H (Negative) Urine Ketones 2+ H (Negative) Urine Blood 1+ H (Negative) Urine RBC (Auto) 5-10 H (0-4) /hpf U Epithel Cells (Auto) 20-30 H (0-5) /lpf 11/20/22 11/20/22 Range/Units 08:53 08:53 WBC 17.80 H (4.8-10.8) K/ul Neut # (Auto) 16.21 H (1.40-6.50) K/uL Lymph # (Auto) 0.73 L (1.2-3.4) K/uL [place] # (Auto) 0.75 H (0.11-0.59) K/uL Sodium (136-145) mmol/L Chloride 108 H (98-107) mmol/L Anion Gap (3-11) BUN/Creatinine Ratio 9.1 L (10-20) Glucose 170 H (70-99(Fasting)) mg/dl Calcium 8.3 L (8.5-10.1) mg/dl Total Bilirubin (0.2-1.0) mg/dl AST 11 L (13-39) U/L Troponin I High Sens (0-14) pg/ml Total Protein (6.0-8.3) gm/dl Albumin 3.3 L (3.4-5.0) gm/dl Lipase (11-82) U/L Ur Specific [place] (1.000-1.030) Urine Protein (Negative) Urine Ketones (Negative) Urine Blood (Negative) Urine RBC (Auto) (0-4) /hpf U Epithel Cells (Auto) (0-5) /lpf
[2022-11-20] MEDS: oxyCODONE/ACETAMINOPHEN 5mg/325mg TAB PO PRN (12:02)
[2022-11-21] MEDS: [UNRECOGNIZED DRUG - REMARK] SCH ×3 (00:15→16:08)
[2022-11-21] MEDS: D5W AND 1/2NSS + 20MEQ KCL 20 MEQ/1,000 ML BAG IV SCH ×2 (03:18→12:56)
[2022-11-21] MEDS: PIPERACILLIN/TAZOBACTAM 3.375 GM in DEXTROSE 5% 100 ML IV SCH ×3 (06:02→22:26)
[2022-11-21 08:14] LABS: Basophils # (auto) 0.02 K/uL (0-0.2); Basophils % (auto) 0.2 %; Eosinophils # (auto) 0.01 K/uL (0-0.50); Eosinophils % (auto) 0.1 %; Hematocrit (blood only) 36.3 % (37.0-47.0); Hemoglobin 12.3 g/dl (12.0-16.0); Immature Granulocytes # (auto) 0.07 K/uL (0.01-0.20); Immature Granulocytes % (auto) 0.6 %; Lymphocytes # (auto) 1.34 K/uL (1.2-3.4); Lymphocytes % (auto) 10.8 %; Mean Corpuscular Hemoglobin 31.2 pg (25.0-34.0); Mean Corpuscular Hgb Conc 33.9 g/dL (32.0-36.0); Mean Corpuscular Volume 92.1 fL (80.0-100.0); Mean Platelet Volume 10.4 fL (9.4-12.4); Monocytes # (auto) 0.46 K/uL (0.11-0.59); Monocytes % (auto) 3.7 %; Neutrophils # (auto) 10.52 K/uL (1.40-6.50); Neutrophils % (auto) 84.6 %; Platelet Count 199 K/uL (130-400); RDW Coefficient of Variation 12.9 % (11.5-14.5); RDW Standard Deviation 43.7 fL (36.4-46.3); Red Blood Count 3.94 M/uL (4.20-5.40); White Blood Count 12.42 K/ul (4.8-10.8)
[2022-11-21 08:27] LABS: Albumin Level 3.1 gm/dl (3.4-5.0); Bilirubin,Total 0.7 mg/dl (0.2-1.0); Calcium 8.3 mg/dl (8.5-10.1); Creatinine Clr Calc Pharmacy 81.8 ml/min; Est GFR (African American) 88.8 ml/min; Est GFR (Non-African American) 76.6 ml/min; Globulin 3.1 gm/dl (2.5-4.0); Total Protein 6.2 gm/dl (6.0-8.3)
[2022-11-21] MEDS: FAMOTIDINE 40 MG TABLET PO SCH (08:29)
[2022-11-21] MEDS: MULTIVITAMIN TAB PO SCH (08:30)
[2022-11-21] MEDS: PROPRANOLOL HCL LA 80 MG CAPCR PO SCH (08:30)
[2022-11-21] MEDS: PANTOprazole 40 MG in SYRINGE 0 ML IV SCH (09:29)
[2022-11-21] MEDS: FLUCONAZOLE 100 MG TAB PO SCH (09:29)
--- NOTE | 2022-11-21 11:03 | Surgery Progress Note ---
Date of Service November 21, 2022 Assessment & Plan (1) Perforated appendicitis: Plan: pt is a 52 year-old female who presents to ER with 2 days history RLQ pain, CT scan - perforated appendicitis, IMP: perforated appendicitis, plan, I recommend to do laparoscopic appendectomy, possible open , D/W benefits, risks and alternatives of the surgery, the risks - infection, bleeding, abscess, bowel leak, bowel obstruction, scar, pain, sepsis,renal failure pt understood, she signed informed consent, I answered all questions, pre-op iv antibiotic, 11/20/2022 11:[address] Zacarias F/U S/P appendectomy, POD 1 doing fine, good control pain, clear diet, OOB continue iv antibiotic, will F/U, 11/21/2022 11:[address] Zacarias F/U S/P appendectomy, POD 2 doing fine, good control pain, clear diet, OOB continue iv antibiotic, will F/U, Admission and Anticipated Discharge Date Admission Date: November 19, 2022 Subjective F/U open appendectomy for perforated appendicitis with 2 JEANNE drainage, POD 1 pt feels better, less abdominal pain, no fever, I update about OR finding to pt. JEANNE 200ml clear F/U open appendectomy for perforated appendicitis with 2 JEANNE drainage, POD 2 pt feels better, less abdominal pain, no fever.not pass gas yet, JEANNE 860ml clear Physical Exam Eyes: PERRL, conjunctivae normal, anicteric sclerae Neck: trachea midline, no thyromegaly Respiratory: normal respiratory effort, lungs clear to auscultation Cardiovascular: RRR, no murmur, no edema Gastrointestinal (Abdomen): soft, mild tenderness at RLQ, no rebound, pain, no distend, 2 jeanne intact, incision site intact, no redness, BS +, Musculoskeletal: no cyanosis or clubbing, extremities motor strength 5/5 Neurologic: patellar DTR's 2+ bilat, sensation intact Psychiatric: A+Ox3, euthymic affect Results & Data ([facility]) Vital Signs (Past 12 Hours) Vital Signs Temp Pulse Resp BP Pulse Ox O2 Del Method 11/21/22 07:21 37.7 C H 86 18 120/74 97 Room Air 11/21/22 03:00 37.3 C 75 18 115/72 94 Room Air Laboratory Results Abnormal lab results 11/21/22 11/21/22 Range/Units 07:32 07:32 WBC 12.42 H (4.8-10.8) K/ul RBC 3.94 L (4.20-5.40) M/uL Hct 36.3 L (37.0-47.0) % Neut # (Auto) 10.52 H (1.40-6.50) K/uL Chloride 109 H (98-107) mmol/L BUN/Creatinine Ratio 8.0 L (10-20) Glucose 115 H (70-99(Fasting)) mg/dl Calcium 8.3 L (8.5-10.1) mg/dl AST 10 L (13-39) U/L Albumin 3.1 L (3.4-5.0) gm/dl
[2022-11-21] MEDS: TOPIRAMATE 50 MG TAB PO SCH ×2 (11:55→20:48)
[2022-11-21] MEDS: oxyCODONE/ACETAMINOPHEN 5mg/325mg TAB PO PRN (14:23)
[2022-11-22] MEDS: [UNRECOGNIZED DRUG - REMARK] SCH ×4 (00:02→23:32)
[2022-11-22] MEDS: PIPERACILLIN/TAZOBACTAM 3.375 GM in DEXTROSE 5% 100 ML IV SCH ×3 (05:52→22:05)
[2022-11-22] MEDS: D5W AND 1/2NSS + 20MEQ KCL 20 MEQ/1,000 ML BAG IV SCH ×2 (08:15)
[2022-11-22] MEDS: MULTIVITAMIN TAB PO SCH (08:17)
[2022-11-22] MEDS: FLUCONAZOLE 100 MG TAB PO SCH (08:17)
[2022-11-22] MEDS: PROPRANOLOL HCL LA 80 MG CAPCR PO SCH (08:17)
[2022-11-22] MEDS: TOPIRAMATE 50 MG TAB PO SCH ×3 (08:17→22:05)
[2022-11-22] MEDS: FAMOTIDINE 40 MG TABLET PO SCH (08:18)
--- NOTE | 2022-11-22 08:40 | Operative Report (OR) ---
DATE OF PROCEDURE: 11/19/2022. PREOPERATIVE DIAGNOSES: Perforated appendicitis, sepsis. POSTOPERATIVE DIAGNOSES: Perforated appendicitis, abscess, sepsis. OPERATION: Laparoscopic converted to open appendectomy. SURGEON: Cayla Zacarias MD. ANESTHESIA: General. ESTIMATED BLOOD LOSS: About 20 mL. FINDINGS: Perforated appendicitis with gangrene appendix, larger abscess 4 x 5 cm. We also sent abscess fluid for culture. COMPLICATIONS: None.. INDICATIONS FOR THE PROCEDURE: This is a 52-year-old female, who presented to the ED with a couple of day history of right lower quadrant pain. The patient had a CT scan diagnosis of perforated appendicitis, based on the patient developed sepsis symptoms and I recommended to do the laparoscopic appendectomy, possible open. I did talk to the patient about the benefits, risks, and alternate procedure. I indicated the risks may include, but not limited, such as bleeding, infection, abscess, sepsis, multiple organ failure, renal failure, bowel obstruction, bowel leak, scar, pain, incisional hernia. The patient understands. She signed informed consent and I answered all questions. DETAILS OF PROCEDURE: After we identified the patient and verified the procedure, we brought the patient to the OR, put the patient in the supine position on the OR table. The patient received SCDs on bilateral legs to prevent DVT. Also, the patient received 4.5 grams Zosyn IV for prophylactic antibiotic and the patient received general anesthesia without difficulty. Also, the patient received a Pizarro catheter insertion to drainage of urine. The abdomen was prepped and draped in routine sterile fashion. After timeout, I injected the local anesthesia by using 1% lidocaine mixed with 0.5% Marcaine just above the umbilicus. Then, I made a small incision just above the umbilicus, opened fascia, opened peritoneum. Under direct vision, I put a Oluie trocar in, connected to CO2 to create pneumoperitoneum, flow rate at 6 liters per minute, pressure not more than 14 mmHg. Once we got a nice pneumoperitoneum, we put a camera in, looked around the abdomen, significant inflammation on the right lower quadrant. There was some free fluid on the pelvic area. Then, we put another two 5 mm trocars on the left lower quadrant. We suctioned the pelvic yellow fluid and then we mobilized cecum area. Then, we found the patient had significant perforated appendix with gangrene and a larger abscess. The abscess size was about 4 x 5 cm. We suctioned fluid and was sent to culture. At this moment, because it was a very difficult case and it was hard to see the whole appendix, at this moment, I decided to do open appendectomy. I made a 6 cm incision on the right lower quadrant and dissected subcutaneous layer and opened the external oblique, split the muscle, reached the peritoneum, opened the peritoneum. At first, we had to open the abscess there. Some fluid was suctioned out. Then, we found the patient had significant gangrene appendix again with perforation. We used a stable transection on the base of appendix, we rechecked and no bile leak at this moment. We used 1 gram vancomycin plus 1 liters normal saline and flushed the abdomen and pelvic area. Once completely removed the appendix, it was sent to Pathology and I put one 10 mm flat RAJIV drainage around the pelvic area and another 10 mm RAJIV drainage on the abscess cavity near the cecum area. Then, we used 0 nylon to fix the RAJIV on the skin. Hemostasis obtained. I closed the external oblique by using 0 PDS continuous running and closed subcutaneous layer by using 2-0 Vicryl continuous running and closed the skin by using staple. The umbilical incision fascial layer by using 0 Vicryl [id number] x2, closed the subcutaneous layer with 2-0 Vicryl interruptedly, closed the skin by using staple. Closed another 5 mm trocar site using staple. Then, we put the dressing on. The patient tolerated the procedure well. All instrument, needle, sponge counts were correct x2 at the end of the case. The patient was transferred to recovery room in stable condition. After the procedure, I did talk to the patient and the patient's about the OR finding ,procedure we did, they understand. The specimen was sent to pathology. Job ID: [id number] MTDD
[2022-11-22] MEDS: PANTOprazole 40 MG in SYRINGE 0 ML IV SCH (11:48)
[2022-11-22] MEDS: oxyCODONE/ACETAMINOPHEN 5mg/325mg TAB PO PRN (11:50)
--- NOTE | 2022-11-22 13:03 | Surgery Progress Note ---
Date of Service November 22, 2022 Assessment & Plan (1) Perforated appendicitis: Plan: POD # 3 laparoscopic converted to open appendectomy for perforated appendicities - vss, tmax 37.7 this am - moderate postop pain at incision site today, controlled - + flatus and belching Plan: Continue pain management continue IV antibiotics oob and ambulate scds incentive drain to bulb suction Continue clears for lunch, full liquids for dinner Discussed Dr. Zacarias who agrees with above. Admission and Anticipated Discharge Date Admission Date: November 19, 2022 Subjective feeling more sore today up walking more yesterday and up to bathroom multiple times to urinate pain controlled with percocet passing gas, started this am, no bowel movement yet alot of belching some pain in the right thigh area issues with varicose veins, no calf pain or tenderness no chest pain or shortness of breath mild fever last night Physical Exam Constitutional: WD/WN, vitals as above cooperative and comfortable; no acute distress and not ill appearing Respiratory: normal respiratory effort; no respiratory distress, no labored breathing and no retractions Gastrointestinal (Abdomen): Inspection/Auscultation: abdomen normal to inspection, + abdominal surgical incision (clean/dry/intact with sabine some edema in RLQ) and + hypoactive bowel sounds; abdomen not distended and + abnormal bowel sounds Percussion/Palpation: + abdomen tender (moderate at incision site and mid abdomen) and abdomen soft; no guarding, abdomen not rigid and abdomen not firm Skin: no rashes, warm and dry Psychiatric: Orientation: alert and oriented x 3 Results & Data ([facility]) Vital Signs (Past 12 Hours) Vital Signs Temp Pulse Resp BP Pulse Ox O2 Del Method 11/22/22 08:01 37.3 C 75 18 106/71 95 Room Air
[2022-11-22] MEDS ORDERED: Nursing to Pharmacy Communication SCH (21:00)
[2022-11-23] MEDS: D5W AND 1/2NSS + 20MEQ KCL 20 MEQ/1,000 ML BAG IV SCH ×2 (03:20→05:52)
[2022-11-23] MEDS: PIPERACILLIN/TAZOBACTAM 3.375 GM in DEXTROSE 5% 100 ML IV SCH ×3 (05:36→21:20)
[2022-11-23] MEDS: oxyCODONE/ACETAMINOPHEN 5mg/325mg TAB PO PRN (05:52)
[2022-11-23] MEDS: MULTIVITAMIN TAB PO SCH (09:02)
[2022-11-23] MEDS: [UNRECOGNIZED DRUG - REMARK] SCH ×2 (09:02→15:33)
[2022-11-23] MEDS: FAMOTIDINE 40 MG TABLET PO SCH (09:02)
[2022-11-23] MEDS: FLUCONAZOLE 100 MG TAB PO SCH (09:03)
[2022-11-23] MEDS: PROPRANOLOL HCL LA 80 MG CAPCR PO SCH (09:03)
[2022-11-23] MEDS ORDERED: POLYETHYLENE (MIRALAX) 17 GM PACK PO ONE (09:53)
--- NOTE | 2022-11-23 09:56 | Surgery Progress Note ---
Date of Service November 23, 2022 Assessment & Plan (1) Perforated appendicitis: Plan: POD # 4 laparoscopic converted to open appendectomy for perforated appendicities - avss, - mild postop pain at incision site today, controlled - + flatus no bowel movement yet Plan: Continue pain management as needed continue IV antibiotics discontinue IV fluids Advance to soft diet for lunch Miralax one time dose oob and ambulate scds incentive drain to bulb suction possibly home tomorrow Dr. Zacarias has seen and examined pt agrees with above. Admission and Anticipated Discharge Date Admission Date: November 19, 2022 Subjective feeling very tired today, did not sleep well, roommate very confused no n,v belching decreased passing gas no bowel movement yet urinating without difficulty no chest pain or shortness of breath no fevers Physical Exam Constitutional: WD/WN, vitals as above cooperative and comfortable; no acute distress and not ill appearing Neck: normal visual inspection and trachea midline Respiratory: normal respiratory effort; no respiratory distress Gastrointestinal (Abdomen): Inspection/Auscultation: abdomen normal to ins pection, + abdominal surgical incision (clean/dry/intact with sabine), + abdominal surgical drain present (serosangunieous) and + hypoactive bowel sounds; abdomen not distended and + abnormal bowel sounds Percussion/Palpation: + abdomen tender (at incision and drain sites, mild) and abdomen soft; no guarding and abdomen not rigid Skin: no rashes, warm and dry Psychiatric: A+Ox3, euthymic affect Results & Data ([facility]) Vital Signs (Past 12 Hours) Vital Signs Temp Pulse Resp BP Pulse Ox O2 Del Method 11/23/22 07:24 36.6 C 75 16 109/69 96 Room Air 11/22/22 22:42 37.5 C 89 18 124/70 94 Room Air
[2022-11-23] MEDS ORDERED: TOPIRAMATE 50 MG TAB PO SCH (21:00)
[2022-11-23] MEDS: TOPIRAMATE 50 MG TAB PO SCH (21:08)
[2022-11-24] MEDS: [UNRECOGNIZED DRUG - REMARK] SCH ×2 (00:16→08:26)
[2022-11-24] MEDS: PIPERACILLIN/TAZOBACTAM 3.375 GM in DEXTROSE 5% 100 ML IV SCH (05:45)
[2022-11-24] MEDS: MULTIVITAMIN TAB PO SCH (08:25)
[2022-11-24] MEDS: FLUCONAZOLE 100 MG TAB PO SCH (08:25)
[2022-11-24] MEDS: PROPRANOLOL HCL LA 80 MG CAPCR PO SCH (08:25)
[2022-11-24] MEDS: FAMOTIDINE 40 MG TABLET PO SCH (08:25)
--- NOTE | 2022-11-24 12:21 | Discharge Summary ---
Date of Service November 24, 2022 Admission HPI Per Admitting Provider The patient is a 52-year-old female who presented to the emergency department for an evaluation of abdominal pain. The patient states she started noticing abdominal pain over the last few days. Initially she started having loose bowel movements but she has not had any bowel movements over the last 24 hours. She also notes some nausea vomiting recently. She called her family doctor this morning to be seen but they were not willing to see her and stated that she would need testing but they were not willing to order so she was referred to the emergency department for further evaluation. She denies having any chest pain or difficulty breathing. I ( Cayla Zacarias MD ) got a call for consult perforated appendicitis, I reviewed pt's H/P , labs and CT scan with pt, Principal Diagnosis Perforated appendicitis with abscess Discharge Exam Constitutional WD/WN, vitals as above cooperative and comfortable; not ill appearing Neck normal visual inspection and trachea midline Respiratory normal respiratory effort; no respiratory distress Gastrointestinal (Abdomen) Inspection/Auscultation: abdomen normal to inspection, + abdominal surgical incision (clean/dry/intact with sabine) and + abdominal surgical drain present (serous and serosanguineous); abdomen not distended Percussion/Palpation: + abdomen tender (at incision sites mostly RLQ incision site) and abdomen soft; no guarding, abdomen not rigid and abdomen not firm Skin no rashes, warm and dry Psychiatric A+Ox3, euthymic affect Discharge Data Allergies Allergy/AdvReac Type Severity Reaction Status Date / Time No Known Drug Allergies Allergy Verified 10/05/22 15:12 Consultations 11/19/22 15:55 Consult General Surgery Stat Procedures Performed Operation Date: 11/19/22 15:35 Actual Procedures p Appendectomy, converted to open(Not Applicable) - aCyla Zacarias MD s Perforated Laparoscopic Appendectomy, (Not Applicable) - Cayla Zacarias MD Ordered Studies 11/19/22 14:21 CT abd pelvis IV con only Stat Hospital Course (1) Perforated appendicitis: Patient was taken to operating room for laparoscopic appendectomy by DR. Zacarias. Gangrenous perforated appendicitis with abscess was found and given the severe inflammation procedure was converted to open appendectomy. Patient tolerated procedure without difficulty and was transferred to recovery then to medical/surgical floor for postoperative care. IV Zosyn was continued postoperatively. Pain mangement via IV morhpine and po percocet as needed. Her diet was slowly advanced once bowel function began to return. on POD # 4 diet advanced to soft diet. POD # 5 patient had liquid bowel movement and tolerated soft diet. She was discharged home with surgical drains x 2 and a 7 day course of oral cipro and flagyl with 1 week follow-up in surgery office. Total Time Total Time Spent Total Time Spent (In Minutes): 45 minutes Total Time Includes: Examination of the Patient, Discharge Planning and Medication Reconciliation Discharge Plan Discharge Items Patient Disposition: Home - Self-Care Reason For Visit: VOMITING, LOWER ABDOMINAL PAIN Discharge Diagnosis: Acute perforated appendicitis Activity: Per Instructions section Non-emergency contact: Primary Care Provider and Surgeon Call non-emergency contact if: you have any medication questions, your pain is not controlled, your pain is worsening, your pain is unusual for you, your pain is concerning for you, you have a fever, your temperature is above 101, your wound has increased redness, your wound has increased drainage and your wound pain has increased Follow-up/Referrals: Trixie Treviño PA-C [Physician Aerosol Supervisor] - 11/29/22 1:30 pm Cayla Zacarias MD [Physician] - (1 week) Diet: Low Fiber Addtl Attending Provider Instructions: Post-Surgical ~Discharge Instructions Activity Recommendations: - lifting limitation: (10 pounds for 6 weeks), - exercise/sex/sports limit: (nonstrenuous for 6 weeks), - driving or machine use limit: (none for 1 week), - Shower/bathe limit: (may shower) Diet: - Resume previous diet SPECIAL CARE INSTRUCTIONS: - May shower. Let water run over area and pat dry. - Try to sponge bath around drain sites and incision sites and keep as dry as possible. - Surgical sabine will be removed in office. - Keep record of drain output and color and bring to office with you. Drain will be removed in office. - Call the surgeon's office with any questions or concerns - - (ex. temperature higher than 101 degrees F, excessive bleeding or pain). MEDICATIONS: - Resume previous medications unless instructed otherwise by your surgeon. - May alternate extra strength Tylenol and Ibuprofen as needed for mild to moderate pain - 650 mg Tylenol every 6 hours as needed - Ibuprofen 600 mg every 6 hours as needed (take with food) - Percocet 1 every 4 hours, as needed for moderate to severe pain - Take antibiotics as prescribed -Ciprofloxacin 500 mg twice a day for 7 days - Metronidazole 500 mg three times a day for 7 days FOLLOW UP VISIT: - If not already scheduled, please call the office to schedule a one week follow-up appointment. Office number Pending Studies at Discharge: No Stand-Alone Forms: [facility], Pain - Opioid Pain Management, Work/School Release, Smoking Cessation Medications and DC Order Prescriptions: New oxycodone-acetaminophen [Percocet] 5-325 mg tablet 1 tab PO Q4H PRN (Reason: pain) Qty: 18 0RF ciprofloxacin HCl 500 mg tablet 500 mg PO BID Qty: 14 0RF metronidazole 500 mg tablet 500 mg PO TID Qty: 21 0RF Continued estradiol 0.01 % (0.1 mg/gram) cream 1 g vaginal .COMPLEX Qty: 42.5 2RF Rx Instructions: 1 g vaginal Twice Weekly famotidine 40 mg tablet See Rx Instructions .ROUTE .COMPLEX Qty: 90 3RF Dose Instruction: TAKE ONE TABLET BY MOUTH ONCE DAILY Rx Instructions: TAKE ONE TABLET BY MOUTH ONCE DAILY cyclobenzaprine 10 mg tablet 10 mg PO HS PRN (Reason: muscle spasm) Qty: 30 2RF propranolol 80 mg capsule,extended release 24hr 80 mg PO DAILY Qty: 30 3RF sumatriptan succinate 100 mg tablet See Rx Instructions PO .COMPLEX Qty: 18 1RF Rx Instructions: take 1 tab at onset of headache; if no relief may repeat 1 tab in 2hr; max = 2 tabs/24 hrs PO diphenhydramine HCl 25 mg tablet PO PRN multivitamin 1 ea PO DAILY riboflavin (vitamin B2) PO DAILY cholecalciferol (vitamin D3) PO DAILY coenzyme Q10 100 mg capsule 100 mg PO DAILY Mirena 20 mcg/24 hours (7 yrs) 52 mg intrauterine device intrauterine topiramate 100 mg tablet 50 mg PO DAILY Discharge Orders: Discharge Order (Routine); Ordered 11/24/22 Ordered By: Pratima Tello/Other Patient Handouts: DVT Post Op Prevention Admission Data Admit Date/Time: 11/19/22 19:42 Attending Provider: Cayla Zacarias Admit Provider: Cayla Zacarias Primary Care Provider: Jose Disla Other Providers: Cayla Zacarias Other Interventions: Discharge Summary Assessment (RN) Last Done: 11/24/22 13:15
== END 2022-11-24 14:47 | disposition home or self-care (01) | DRG 853 ==
LOC: ED 12:42 → 3N 18:07 → OR 18:07 → 3N 19:42

== ENCOUNTER 2022-11-28 04:47 | Inpatient (IN) ==
[2022-11-28] MEDS ORDERED: SODIUM CHLORIDE 0.9% 500 ML IV STA (04:55)
[2022-11-28] MEDS ORDERED: MoRPHine SULFATE 4 MG/ML 1 ML CARP\\VIAL IV STA (05:02)
[2022-11-28] MEDS ORDERED: SODIUM CHLORIDE 0.9% 1000ML 500 ML IV ONE (05:02)
--- NOTE | 2022-11-28 05:04 | Emergency Department Note ---
Impression & Plan Pneumonia ADMIT ED Provider Note HPI: The patient is a 52-year-old female who presents the emergency department with a chief complaint of right upper back pain and right flank pain that developed acutely last evening around midnight. Patient is postoperative day #9 after an appendectomy for perforated appendicitis with Dr. Zacarias here at [facility]. On arrival here to the ED, patient is in mild distress secondary to pain. She is slightly tachycardic at 110 but otherwise hemodynamically stable and afebrile, patient is saturating well on room air. She states her pain worsens when she lays flat, states that she is most comfortable sitting with her back straight. Patient denies any vomiting, denies any anterior chest pain, states that she has felt very short of breath throughout the night. ROS: - Per HPI *Outpatient medications and allergy history reviewed. *Pertinent external medical records reviewed. PE: General: Alert HEENT: Normocephalic, trachea midline Eyes: Extraocular eye movement is intact, no scleral erythema Pulmonary: Clear to auscultation bilaterally, no wheezing Cardio: Regular rate and rhythm GI: Abdomen is soft, there is mild tenderness diffusely with palpation without guarding or rigidity : No suprapubic tenderness, there is right flank tenderness to palpation MSK: No evidence of trauma or malformation of the extremities, no edema Skin: No evidence of rash, surgical wounds with overlying stable to the right lower quadrant appears without surrounding erythema or purulence, laparoscopic wounds appear to be healing appropriately Neuro: Alert, no focal deficits Psychiatric: Cooperative telemetry monitor: (As interpreted by myself): - An order was placed for continuous cardiac monitoring - Patient was noted to be in sinus rhythm with a rate of 90 EKG: (As interpreted by myself): Rate: 102 Rhythm: Sinus tachycardia Intervals: Within normal limits ST changes: No ST elevation Time: 0511 Interventions provided in ED: -IV Zosyn, IV morphine, IV fluid bolus Medical Decision Making: Patient presented to the emergency department 6 days postoperative from appendectomy complicated by perforation that was subsequently laparoscopic converted to open appendectomy. Patient states that she developed some right upper back pain and right flank pain as well as some right-sided abdominal dis comfort that was mostly in the upper abdomen since last evening. On arrival here to the ED the patient is mildly tachycardic, afebrile, she is in mild distress secondary to discomfort on arrival. IV was established, lab work obtained, patient was given IV fluids as well as IV morphine for pain. Lab work shows a significant leukocytosis greater than 18,000 and therefore blood cultures were ordered. Patient was given a dose of IV Zosyn. CT angiography of the chest did not show any evidence of pulmonary embolism, there is evidence of what appears to be consolidation in the right lung base consistent with possible pneumonia. CT imaging of the abdomen pelvis does not show any evidence of organized abscess within the surgical bed. Questionable seroma in the abdominal wall, otherwise no bowel obstruction or free air. General surgery was consulted in regards to the patient's presentation, patient was evaluated at the bedside by KAPIL Tucker, I also discussed the case with the on-call attending physician for general surgery, Dr. Ramirez. Given that CT imaging findings are more concerning for consolidation in the right lung base and did not show any acute surgical abnormality within the surgical bed where appendix was removed, specifically no evidence of intra-abdominal abscess, he feels the patient is appropriate for admission to the hospitalist service and general surgery will consult when he is out of the operating room this morning. [facility] hospitalist service was therefore consulted for admission. On my reevaluation patient is in agreement for admission, I think this is appropriate given her significant leukocytosis with finding of right lower lobe pneumonia and significant amount of pain that she is having in that area. She did require a dose of morphine which did not help much with her pain and therefore was given a dose of Dilaudid. This did significantly improve her pain. Patient is in agreement for admission and she was placed for admission in stable condition. Case was discussed with Dr. Norman. Consultants: General surgery, Dr. Ramirez Hospitalist service, Dr. Norman Disposition discussion held by myself with: Patient Diagnosis: 1. Right flank pain, acute 2. Dyspnea, acute 3. Right lower lobe pneumonia/consolidation on CT imaging 4. Leukocytosis Disposition: Admission Kristopher López DO Emergency Medicine Past Med/Surg History Medical History Atypical squamous cells of undetermined significance (ASC-US) on cervical Pap smear HEYDI I (cervical intraepithelial neoplasia I) History of chicken pox History of migraine IUD (intrauterine device) in place leanna- 1/12/18 Varicose veins of legs Surgical History H/O colposcopy with cervical biopsy H/O LEEP 02/26, persistent heydi 1 History of surgical removal of skin lesion Family History Father Bleeding disorder Cardiac disorder Mother Dementia Breast cancer, Onset Age: 78 Denies family history of Ovarian cancer Colorectal cancer Social History Smoking Status: Never smoker Hx Alcohol Use: No Hx Substance Use: No Preferred Language: Amharic Communication Ability: Effective Visual Impairment: No Limitations Hearing Ability: Normal Public Health Dietitian Required: No Beliefs That Will Affect Care: None marital status: Current Living Situation: Spouse current occupational status: employed current occupation: self employed Feels Safe at Home: Yes Childhood Exposure to Second-Hand Smoke: Yes Dental Care, Regularly: Yes Physical Activity Frequency: Does not Exercise Seatbelt Use: always Sunscreen Use: Yes (sometimes) Assistive Devices: None Allergies Allergies Allergy/AdvReac Type Severity Reaction Status Date / Time No Known Drug Allergies Allergy Verified 11/28/22 06:42 Home Meds Home Medications Medication Instructions Recorded Confirmed diphenhydramine HCl 25 mg tablet 25 mg PO PRN allergies 07/11/19 11/28/22 cholecalciferol (vitamin D3) 1 cap PO DAILY 02/21/20 11/28/22 riboflavin (vitamin B2) 1 tab PO DAILY 02/21/20 11/28/22 coenzyme Q10 100 mg capsule 100 mg PO DAILY 09/29/20 11/28/22 levonorgestrel 21 mcg/24 hours (8 1 device intrauterine CONTINOUS 12/25/21 11/28/22 yrs) 52 mg intrauterine device (Mirena) topiramate 100 mg tablet 50 mg PO DAILY 10/05/22 11/28/22 multivitamin 1 tab PO DAILY 11/28/22 11/28/22 Previous Rx's Medication Instructions Recorded estradiol 0.01% (0.1 mg/gram) 1 g vaginal .COMPLEX #42.5 grams 01/01/22 vaginal cream famotidine 40 mg tablet See Rx Instructions .Route 01/18/22 .COMPLEX #90 tabs cyclobenzaprine 10 mg tablet 10 mg PO HS PRN muscle spasm #30 05/20/22 tabs propranolol 80 mg capsule,24 80 mg PO DAILY #30 caps 08/23/22 hr,extended release sumatriptan succinate 100 mg tablet See Rx Instructions PO .COMPLEX 11/15/22 #18 tabs ciprofloxacin HCl 500 mg tablet 500 mg PO BID #14 tabs 11/24/22 metronidazole 500 mg tablet 500 mg PO TID #21 tabs 11/24/22 oxycodone-acetaminophen 5 mg-325 1 tab PO Q4H PRN pain #18 tabs 11/24/22 mg tablet (Percocet) Results & Data (ED) Vital Signs Vital Signs - 24 hr 11/28/22 04:53 11/28/22 05:21 11/28/22 05:15 Temperature 36.4 C L Temperature Source Temporal Artery Scan Pulse Rate 110 H 105 H 100 H Pulse Rate [Apical] Pulse Rhythm Regular Respiratory Rate 18 17 Respiratory Effort / Characteristics Non-Labored Spontaneous Respiratory Depth Normal Blood Pressure 111/78 Blood Pressure [Left Arm] Blood Pressure Mean 89 Blood Pressure Mean [Left Arm] Pulse Oximetry 95 98 Oxygen Delivery Method Room Air Room Air Sepsis Recent Fever Within 48 Hours No Sepsis New/Unexplained Change in Mental Status No Sepsis Action Taken by Nursing No Action Required 11/28/22 07:00 Temperature Temperature Source Pulse Rate Pulse Rate [Apical] 74 Pulse Rhythm Respiratory Rate 14 Respiratory Effort / Characteristics Respiratory Depth Blood Pressure Blood Pressure [Left Arm] 104/68 Blood Pressure Mean Blood Pressure Mean [Left Arm] 80 Pulse Oximetry 98 Oxygen Delivery Method Room Air Sepsis Recent Fever Within 48 Hours Sepsis New/Unexplained Change in Mental Status Sepsis Action Taken by Nursing Laboratory Data 11/28/22 05:17 11/28/22 05:17 Lab Results 11/28/22 11/28/22 11/28/22 Range/Units 05:17 05:17 05:17 WBC 18.19 H (4.8-10.8) K/ul RBC 4.45 (4.20-5.40) M/uL Hgb 13.7 (12.0-16.0) g/dl Hct 39.5 (37.0-47.0) % MCV 88.8 (80.0-100.0) fL MCH 30.8 (25.0-34.0) pg MCHC 34.7 (32.0-36.0) g/dL RDW Std Deviation 41.1 (36.4-46.3) fL RDW Coeff of [place] 12.6 (11.5-14.5) % Plt Count 468 H (130-400) K/uL MPV 9.0 L (9.4-12.4) fL Immature Gran % (Auto) 1.3 % Neut % (Auto) 80.6 % Lymph % (Auto) 10.5 % Teller % (Auto) 6.3 % Eos % (Auto) 1.0 % Baso % (Auto) 0.3 % Neut # (Auto) 14.65 H (1.40-6.50) K/uL Lymph # (Auto) 1.91 (1.2-3.4) K/uL Teller # (Auto) 1.15 H (0.11-0.59) K/uL Eos # (Auto) 0.19 (0-0.50) K/uL Baso # (Auto) 0.05 (0-0.2) K/uL Immature Gran # (Auto) 0.24 H (0.01-0.20) K/uL Sodium 132 L (136-145) mmol/L Potassium 3.5 (3.5-5.1) mmol/L Chloride 101 (98-107) mmol/L Carbon Dioxide 22 (21-32) mmol/L Anion Gap 9 (3-11) BUN 11 (6-23) mg/dl Creatinine 0.77 (0.6-1.2) mg/dl Est Cr Clr Drug Dosing Not Reportable Est GFR ( Amer) 102.9 ml/min Est GFR (Non-Af Amer) 88.8 ml/min BUN/Creatinine Ratio 14.3 (10-20) Glucose 135 H (70-99(Fasting)) mg/dl Calcium 9.3 (8.5-10.1) mg/dl Total Bilirubin 0.5 (0.2-1.0) mg/dl AST 66 H (13-39) U/L ALT 57 H (7-52) U/L Alkaline Phosphatase 63 (34-104) U/L Troponin I High Sens 4.1 (0-14) pg/ml Total Protein 7.7 (6.0-8.3) gm/dl Albumin 4.0 (3.4-5.0) gm/dl Globulin 3.7 (2.5-4.0) gm/dl Albumin/Globulin Ratio 1.1 (0.9-2) Lipase 55 (11-82) U/L HCG, Qual Negative (Negative) Urine Color Urine Appearance (Clear) Urine pH (4.5-7.5) Ur Specific [place] (1.000-1.030) Urine Protein (Negative) Urine Glucose (UA) (Negative) Urine Ketones (Negative) Urine Blood (Negative) Urine Nitrite (Negative) Urine Bilirubin (Negative) Urine Urobilinogen (Negative) Ur Leukocyte Esterase (Negative) SARS-CoV-2, RNA, NAAT (NEGATIVE) 11/28/22 11/28/22 Range/Units 06:30 07:07 WBC (4.8-10.8) K/ul RBC (4.20-5.40) M/uL Hgb (12.0-16.0) g/dl Hct (37.0-47.0) % MCV (80.0-100.0) fL MCH (25.0-34.0) pg MCHC (32.0-36.0) g/dL RDW Std Deviation (36.4-46.3) fL RDW Coeff of [place] (11.5-14.5) % Plt Count (130-400) K/uL MPV (9.4-12.4) fL Immature Gran % (Auto) % Neut % (Auto) % Lymph % (Auto) % Teller % (Auto) % Eos % (Auto) % Baso % (Auto) % Neut # (Auto) (1.40-6.50) K/uL Lymph # (Auto) (1.2-3.4) K/uL Teller # (Auto) (0.11-0.59) K/uL Eos # (Auto) (0-0.50) K/uL Baso # (Auto) (0-0.2) K/uL Immature Gran # (Auto) (0.01-0.20) K/uL Sodium (136-145) mmol/L Potassium (3.5-5.1) mmol/L Chloride (98-107) mmol/L Carbon Dioxide (21-32) mmol/L Anion Gap (3-11) BUN (6-23) mg/dl Creatinine (0.6-1.2) mg/dl Est Cr Clr Drug Dosing Est GFR ( Amer) ml/min Est GFR (Non-Af Amer) ml/min BUN/Creatinine Ratio (10-20) Glucose (70-99(Fasting)) mg/dl Calcium (8.5-10.1) mg/dl Total Bilirubin (0.2-1.0) mg/dl AST (13-39) U/L ALT (7-52) U/L Alkaline Phosphatase (34-104) U/L Troponin I High Sens (0-14) pg/ml Total Protein (6.0-8.3) gm/dl Albumin (3.4-5.0) gm/dl Globulin (2.5-4.0) gm/dl Albumin/Globulin Ratio (0.9-2) Lipase (11-82) U/L HCG, Qual (Negative) Urine Color Yellow Urine Appearance Clear (Clear) Urine pH 5.5 (4.5-7.5) Ur Specific [place] 1.025 (1.000-1.030) Urine Protein Negative (Negative) Urine Glucose (UA) Negative (Negative) Urine Ketones Trace H (Negative) Urine Blood Negative (Negative) Urine Nitrite Negative (Negative) Urine Bilirubin Negative (Negative) Urine Urobilinogen Negative (Negative) Ur Leukocyte Esterase Negative (Negative) SARS-CoV-2, RNA, NAAT NEGATIVE (NEGATIVE) Administered Medications Discontinued Medications Hydromorphone HCl (Hydromorphone Inj 0.5 Mg/0.5 Ml Syr) 0.5 mg IV NOW STA Stop: 11/28/22 07:11 Last Admin: 11/28/22 07:15 Dose: 0.5 mg Documented By: PILO Sodium Chloride (Nss) 500 mls @ 999 mls/hr IV .Q31M STA Stop: 11/28/22 05:25 Last Infusion: 11/28/22 06:07 Dose: 0 mls/hr Documented By: Admin: 11/28/22 05:34 Dose: 999 mls/hr Documented By: JUANA Sodium Chloride (Nss 1000ml) 500 mls @ 999 mls/hr IV .Q31M ONE Stop: 11/28/22 05:32 Last Infusion: 11/28/22 06:06 Dose: 0 mls/hr Documented By: Admin: 11/28/22 05:34 Dose: 999 mls/hr Documented By: JUANA Piperacillin Sod/Tazobactam Sod (Zosyn) 4.5 gm in 120 mls @ 240 mls/hr IV NOW ONE Stop: 11/28/22 06:23 Last Admin: 11/28/22 06:30 Dose: 240 mls/hr Documented By: DERRELL Ioversol (Optiray 320 500ml) 114 ml IV ONCE ONE Stop: 11/28/22 06:31 Last Admin: 11/28/22 06:21 Dose: 114 ml Documented By: JOHANNA Morphine Sulfate (Morphine Sulfate 4 Mg/Ml 1 Ml Carp\Vial) 4 mg IV NOW STA Stop: 11/28/22 05:03 Last Admin: 11/28/22 05:29 Dose: 4 mg Documented By: JUANA Imaging Data Radiologist's Impression: Abdomen/Pelvis CT 11/28/22 05:01 CT ANGIOGRAM OF THE CHEST; CT SCAN OF THE ABDOMEN AND PELVIS WITH IV CONTRAST CLINICAL HISTORY: Dyspnea. Atypical chest pain. Recent appendectomy. COMPARISON STUDY: Abdominal CT dated 11/19/2022. TECHNIQUE: Following the IV administration of 114 of Optiray 320, CT angiogram of the chest is performed from the upper abdomen to the thoracic inlet utilizing the pulmonary embolus protocol. Images are reviewed in the axial, sagittal, coronal planes. 3-D MIPS images are created and assessed. Subsequently, CT scan of the abdomen and pelvis was performed from the lung bases to the proximal femora. Images are reviewed in the axial, sagittal, and coronal planes. IV contrast was administered without complication. A dose lowering technique was utilized adhering to the principles of ALARA. The examinations are degraded by streak artifact from the arms which could not be elevated above the chest or abdomen. CT DOSE: 1287.68 mGy.cm FINDINGS: CHEST: Thyroid: Imaged portions of the thyroid gland are normal in size and attenuation. Thoracic aorta: The thoracic aorta is normal in caliber and demonstrates standard 3-vessel arch anatomy. No dissection is seen. Pulmonary vasculature: The pulmonary trunk is normal in caliber. There are no filling defects identified in the main, lobar, or segmental pulmonary arteries to indicate pulmonary embolus. Heart: The heart is normal in size and without pericardial effusion. Lungs and pleural spaces: There is a kmgsh-eq-rlsshbyl and at least partially loculated right pleural effusion with right basilar consolidation. Trace pleural fluid is seen on the left with dependent atelectasis. The trachea and central airways are clear. Mediastinum: There is no mediastinal lymphadenopathy. Capri: Clear. Axillae: There is no axillary lymphadenopathy. Bony thorax: No lytic or blastic lesions are identified. Soft tissues: A 3.7 cm sebaceous cyst is noted in the left lower back. ABDOMEN AND PELVIS: Liver: The contrast-enhanced liver is normal in size, contour, and attenuation. There is no intrahepatic biliary ductal dilatation. The hepatic veins and portal veins are patent. Gallbladder: Unremarkable. Spleen: Normal in size and attenuation. Pancreas: Unremarkable. Adrenal glands: Unremarkable. Kidneys: The contrast enhanced kidneys are normal in size and without hydronephrosis. The kidneys enhance symmetrically. Renal sinus cysts are seen bilaterally. A 12 mm cortical cyst is again seen in the left upper pole. Abdominal vasculature: The abdominal aorta is normal in course and caliber noting mild atherosclerotic calcification. Stomach and bowel: There is a small hiatal hernia. Vysg-ly-qkfgmuic fecal retention is seen throughout the colon. No bowel obstruction is identified. The appendix is surgically absent. Peritoneum: 2 surgical drains are present in the right mid abdomen from a right lower quadrant and anterior pelvic approach. There is inflammation and stranding around the tip of the catheter which is located adjacent to the base of the cecum with trace fluid and gas. Due to the second catheter is located in the right anterior pelvis. No organized/drainable fluid collection is identified. Lymphadenopathy: None. Pelvic viscera: The bladder is mildly distended and contains foci of intraluminal gas. The bladder is otherwise normal as visualized. The uterus and adnexa are normal as imaged noting an intrauterine device in place. Skeletal structures: No lytic or blastic lesions are seen. Soft tissues: Soft tissue infiltration is seen throughout the right lower quadrant abdominal wall with some clips in place. This is likely on a postoperative basis. There is a thin crescentic fluid collection the right ante rior pelvic wall musculature seen on image #305 which measures 1.8 x 0.6 cm. IMPRESSION: 1. There is no evidence of pulmonary embolus in the main, lobar, or segmental pulmonary arteries. 2. There is a small to moderate at least partially loculated right pleural effusion with right basilar consolidation. This could represent atelectasis and/or pneumonia and clinical correlation will be required. 3. Trace pleural fluid is seen on the left with dependent atelectasis. 4. Status post interval appendectomy as compared to 11/19/2022. 5. There are 2 surgical drains present in the right lower quadrant. 6. There is inflammation identified adjacent to the base of the cecum around one of the surgical drains with trace residual fluid and foci of gas. No organized intraperitoneal fluid collection is identified. 7. There is a tiny fluid collection within the right anterior pelvic wall musculature which measures up to 1.8 cm. This could represent a postoperative seroma/hematoma. The sterility of this fluid cannot be assessed by imaging and clinical correlation will be required. 8. Gas within the bladder lumen may be related to instrumentation. Correlate with urinalysis. 9. Additional findings as above. ACT 112: Negative or not required by law. Electronically signed by: Ravinder Mora M.D. 11/28/2022 6:47 AM Chest CTA 11/28/22 05:01 CT ANGIOGRAM OF THE CHEST; CT SCAN OF THE ABDOMEN AND PELVIS WITH IV CONTRAST CLINICAL HISTORY: Dyspnea. Atypical chest pain. Recent appendectomy. COMPARISON STUDY: Abdominal CT dated 11/19/2022. TECHNIQUE: Following the IV administration of 114 of Optiray 320, CT angiogram of the chest is performed from the upper abdomen to the thoracic inlet utilizing the pulmonary embolus protocol. Images are reviewed in the axial, sagittal, coronal planes. 3-D MIPS images are created and assessed. Subsequently, CT scan of the abdomen and pelvis was performed from the lung bases to the proximal femora. Images are reviewed in the axial, sagittal, and coronal planes. IV contrast was administered without complication. A dose lowering technique was utilized adhering to the principles of ALARA. The examinations are degraded by streak artifact from the arms which could not be elevated above the chest or abdomen. CT DOSE: 1287.68 mGy.cm FINDINGS: CHEST: Thyroid: Imaged portions of the thyroid gland are normal in size and attenuation. Thoracic aorta: The thoracic aorta is normal in caliber and demonstrates standar d 3-vessel arch anatomy. No dissection is seen. Pulmonary vasculature: The pulmonary trunk is normal in caliber. There are no filling defects identified in the main, lobar, or segmental pulmonary arteries to indicate pulmonary embolus. Heart: The heart is normal in size and without pericardial effusion. Lungs and pleural spaces: There is a otenm-mx-vcjipeiu and at least partially loculated right pleural effusion with right basilar consolidation. Trace pleural fluid is seen on the left with dependent atelectasis. The trachea and central airways are clear. Mediastinum: There is no mediastinal lymphadenopathy. Capri: Clear. Axillae: There is no axillary lymphadenopathy. Bony thorax: No lytic or blastic lesions are identified. Soft tissues: A 3.7 cm sebaceous cyst is noted in the left lower back. ABDOMEN AND PELVIS: Liver: The contrast-enhanced liver is normal in size, contour, and attenuation. There is no intrahepatic biliary ductal dilatation. The hepatic veins and portal veins are patent. Gallbladder: Unremarkable. Spleen: Normal in size and attenuation. Pancreas: Unremarkable. Adrenal glands: Unremarkable. Kidneys: The contrast enhanced kidneys are normal in size and without hyd ronephrosis. The kidneys enhance symmetrically. Renal sinus cysts are seen bilaterally. A 12 mm cortical cyst is again seen in the left upper pole. Abdominal vasculature: The abdominal aorta is normal in course and caliber noting mild atherosclerotic calcification. Stomach and bowel: There is a small hiatal hernia. Jagd-km-tcycrchg fecal retention is seen throughout the colon. No bowel obstruction is identified. The appendix is surgically absent. Peritoneum: 2 surgical drains are present in the right mid abdomen from a right lower quadrant and anterior pelvic approach. There is inflammation and stranding around the tip of the catheter which is located adjacent to the base of the cecum with trace fluid and gas. Due to the second catheter is located in the right anterior pelvis. No organized/drainable fluid collection is identified. Lymphadenopathy: None. Pelvic viscera: The bladder is mildly distended and contains foci of intraluminal gas. The bladder is otherwise normal as visualized. The uterus and adnexa are normal as imaged noting an intrauterine device in place. Skeletal structures: No lytic or blastic lesions are seen. Soft tissues: Soft tissue infiltration is seen throughout the right lower quadrant abdominal wall with some clips in place. This is likely on a postoperative basis. There is a thin crescentic fluid collection the right anterior pelvic wall musculature seen on image #305 which measures 1.8 x 0.6 cm. IMPRESSION: 1. There is no evidence of pulmonary embolus in the main, lobar, or segmental pulmonary arteries. 2. There is a small to moderate at least partially loculated right pleural effusion with right basilar consolidation. This could represent atelectasis and/or pneumonia and clinical correlation will be required. 3. Trace pleural fluid is seen on the left with dependent atelectasis. 4. Status post interval appendectomy as compared to 11/19/2022. 5. There are 2 surgical drains present in the right lower quadrant. 6. There is inflammation identified adjacent to the base of the cecum around one of the surgical drains with trace residual fluid and foci of gas. No organized intraperitoneal fluid collection is identified. 7. There is a tiny fluid collection within the right anterior pelvic wall musculature which measures up to 1.8 cm. This could represent a postoperative seroma/hematoma. The sterility of this fluid cannot be assessed by imaging and clinical correlation will be required. 8. Gas within the bladder lumen may be related to instrumentation. Correlate with urinalysis. 9. Additional findings as above. ACT 112: Negative or not required by law. Electronically signed by: Ravinder Mora M.D. 11/28/2022 6:47 AM Discharge Plan Visit Data Chief Complaint: Flank Pain Stated Complaint: HAD APPENDIX REMOVED IN PAIN, REF BY DR LEAVITT Provider: Kristopher López Discharge Problem: Pneumonia Forms Stand Alone Forms: [facility] Prescriptions Prescriptions: No Action estradiol 0.01 % (0.1 mg/gram) cream 1 g vaginal .COMPLEX Qty: 42.5 2RF Rx Instructions: 1 g vaginal Twice Weekly famotidine 40 mg tablet See Rx Instructions .ROUTE .COMPLEX Qty: 90 3RF Dose Instruction: TAKE ONE TABLET BY MOUTH ONCE DAILY Rx Instructions: TAKE ONE TABLET BY MOUTH ONCE DAILY cyclobenzaprine 10 mg tablet 10 mg PO HS PRN (Reason: muscle spasm) Qty: 30 2RF propranolol 80 mg capsule,extended release 24hr 80 mg PO DAILY Qty: 30 3RF sumatriptan succinate 100 mg tablet See Rx Instructions PO .COMPLEX Qty: 18 1RF Rx Instructions: take 1 tab at onset of headache; if no relief may repeat 1 tab in 2hr; max = 2 tabs/24 hrs PO diphenhydramine HCl 25 mg tablet 25 mg PO PRN riboflavin (vitamin B2) 1 tab PO DAILY cholecalciferol (vitamin D3) 1 cap PO DAILY coenzyme Q10 100 mg capsule 100 mg PO DAILY Mirena 20 mcg/24 hours (7 yrs) 52 mg intrauterine device 1 device intrauterine CONTINOUS topiramate 100 mg tablet 50 mg PO DAILY oxycodone-acetaminophen [Percocet] 5-325 mg tablet 1 tab PO Q4H PRN (Reason: pain) Qty: 18 0RF ciprofloxacin HCl 500 mg tablet 500 mg PO BID Qty: 14 0RF metronidazole 500 mg tablet 500 mg PO TID Qty: 21 0RF multivitamin [Multi-Vitamins] Tablet 1 tab PO DAILY Referrals Referrals: Jose Disla MD [Primary Care Provider] - Pneumonia Qualifiers: Pneumonia type: due to unspecified organism Laterality: right Lung location: lower lobe of lung Qualified Code(s): J18.9 - Pneumonia, unspecified organism
[2022-11-28 05:49] LABS: Basophils # (auto) 0.05 K/uL (0-0.2); Basophils % (auto) 0.3 %; Eosinophils # (auto) 0.19 K/uL (0-0.50); Hematocrit (blood only) 39.5 % (37.0-47.0); Hemoglobin 13.7 g/dl (12.0-16.0); Immature Granulocytes # (auto) 0.24 K/uL (0.01-0.20); Immature Granulocytes % (auto) 1.3 %; Lymphocytes # (auto) 1.91 K/uL (1.2-3.4); Lymphocytes % (auto) 10.5 %; Mean Corpuscular Hemoglobin 30.8 pg (25.0-34.0); Mean Corpuscular Hgb Conc 34.7 g/dL (32.0-36.0); Mean Corpuscular Volume 88.8 fL (80.0-100.0); Monocytes # (auto) 1.15 K/uL (0.11-0.59); Monocytes % (auto) 6.3 %; Neutrophils # (auto) 14.65 K/uL (1.40-6.50); Neutrophils % (auto) 80.6 %; Platelet Count 468 K/uL (130-400); RDW Coefficient of Variation 12.6 % (11.5-14.5); RDW Standard Deviation 41.1 fL (36.4-46.3); Red Blood Count 4.45 M/uL (4.20-5.40); White Blood Count 18.19 K/ul (4.8-10.8)
[2022-11-28] MEDS ORDERED: PIPERACILLIN/TAZOBACTAM 4.5 GM/120 ML BAG IV ONE (05:54)
[2022-11-28 06:02] LABS: Alanine Aminotransferase 57 U/L (7-52); Albumin Globulin Ratio 1.1 (0.9-2); Alkaline Phosphatase 63 U/L (34-104); Anion Gap 9 (3-11); Aspartate Aminotransferase 66 U/L (13-39); BUN Creatinine Ratio 14.3 (10-20); Bilirubin,Total 0.5 mg/dl (0.2-1.0); Blood Urea Nitrogen 11 mg/dl (6-23); Calcium 9.3 mg/dl (8.5-10.1); Carbon Dioxide 22 mmol/L (21-32); Chloride 101 mmol/L (98-107); Est GFR (African American) 102.9 ml/min; Est GFR (Non-African American) 88.8 ml/min; Globulin 3.7 gm/dl (2.5-4.0); Glucose 135 mg/dl (70-99(Fasting)); Lipase 55 U/L (11-82); Potassium 3.5 mmol/L (3.5-5.1); Sodium 132 mmol/L (136-145); Total Protein 7.7 gm/dl (6.0-8.3)
[2022-11-28 06:08] LABS: Troponin I High Sensitivity 4.1 pg/ml (0-14)
--- NOTE | 2022-11-28 06:14 | Surgery Consultation ---
Date of Consultation November 28, 2022 Assessment & Plan (1) Abdominal pain: The etiology of patient's abdominal pain is unclear at this time. Due to the patient's recent surgery with history of perforated/gangrenous appendicitis and are currently elevated white blood cell count I do feel repeat imaging is wa rranted. I discussed with the treating emergency room physician and the patient has had CT scans of the chest, abdomen, and pelvis ordered. We will follow closely and wait for the results of these imaging modalities to determine the next best course of action. For the present time I would recommend keeping the patient n.p.o. and continuing IV antibiotics that have been ordered. In addition I would recommend continuing hydration measures with intravenous fluids. Additional recommendations be forthcoming based on CT scan results once available. Supervising Physician Co-Signing Physician Notes As per Galindo Maynard physician assistant director of plant operations I talked to the patient late last evening after the answering service patient main at the patient had some issues When I talked her she is complaining significant abdominal pain rib pain chest pain that it started earlier in the day therefore I recommended her to come to the emergency room which she did and worked up showed mostly primary etiology of all discomfort seems to be pulmonary in nature (pleural effusion) and given the clinical presentation elevated white count likely empyema Examined the patient this morning still has occasional cough her abdomen soft the incision is healed well intraperitoneal drains serosanguineous nonpurulent drainage Pulmonary scheduled to see patient regarding the issues stated above History of Present Illness Reason for Consultation: Abdominal pain History of Present Illness This is a 52-year-old female who was recently mid to [facility]. On 11/19/2022 the patient underwent an appendectomy by Dr. Zacarias of [facility] general surgery. At the time of operation the patient was noted to have a perforated gangrenous appendix. Patient was in the hospital until 11/24/2022 at which time she was discharged home. It is noteworthy to mention that she was discharged home with [address]. It is also noteworthy to mention that at the time of surgery the patient initially had a laparoscopic approach but was converted to an open appendectomy. The patient's labs were reviewed and at time of presentation her white blood cell count was 26.1. By the time of discharge her white blood cell count had decreased to 12.4. She did not have a significant drop in her hemoglobin hematocrit during her hospitalization. She also did not have any evidence of acute kidney injury. The patient represented to [facility] this morning secondary to worsening pain. The patient notes that she was doing reasonably well upon return home but over the past 24 hours she noted she has been having low-grade fevers with a temperature as high as 100.9. She notes worsening abdominal pain that she notes is greatest in the right upper quadrant with radiation to her right breast and right shoulder. She notes that she does have some shortness of breath particularly when she takes a deep breath. She does not have any nausea or vomiting. She notes that she has been tolerating an oral intake but notes that her diet has been relatively poor. Because of her symptomatology she reported to the emergency department at [facility]. Thus far in the emergency department the patient has had labs including a CBC were white blood cell count was 18.9. Hemoglobin, hematocrit, and were both normal. Platelet count was elevated at 4-68,000. Chemistry profile showed sodium was 132 with a normal potassium. Her BUN and creatinine were also normal. The patient's bilirubin and alkaline phosphatase were normal. There is slight elevation of her transaminases with an AST of 66 and an ALT of 57. Lipase was nonelevated. test is negative. In the emergency department the patient was noted to be normotensive but she was tachycardic with a heart rate of 100-110. She was also noted to be afebrile. She has thus far received approximately 1500 cc of normal saline solution and antibiotics in form of Zosyn have been administered. Allergies Allergy/AdvReac Type Severity Reaction Status Date / Time No Known Drug Allergies Allergy Verified 11/28/22 06:42 Home Medications Medication Instructions Recorded Confirmed Type diphenhydramine HCl 25 mg tablet 25 mg PO PRN allergies 07/11/19 11/28/22 History cholecalciferol (vitamin D3) 1 cap PO DAILY 02/21/20 11/28/22 History riboflavin (vitamin B2) 1 tab PO DAILY 02/21/20 11/28/22 History coenzyme Q10 100 mg capsule 100 mg PO DAILY 09/29/20 11/28/22 History levonorgestrel 21 mcg/24 hours (8 1 device intrauterine CONTINOUS 12/25/21 11/28/22 History yrs) 52 mg intrauterine device (Mirena) estradiol 0.01% (0.1 mg/gram) 1 g vaginal .COMPLEX #42.5 grams 01/01/22 11/28/22 Rx vaginal cream famotidine 40 mg tablet See Rx Instructions .Route 01/18/22 11/28/22 Rx .COMPLEX #90 tabs cyclobenzaprine 10 mg tablet 10 mg PO HS PRN muscle spasm #30 05/20/22 11/28/22 Rx tabs propranolol 80 mg capsule,24 80 mg PO DAILY #30 caps 08/23/22 11/28/22 Rx hr,extended release topiramate 100 mg tablet 50 mg PO DAILY 10/05/22 11/28/22 History sumatriptan succinate 100 mg tablet See Rx Instructions PO .COMPLEX 11/15/22 11/28/22 Rx #18 tabs ciprofloxacin HCl 500 mg tablet 500 mg PO BID #14 tabs 11/24/22 11/28/22 Rx metronidazole 500 mg tablet 500 mg PO TID #21 tabs 11/24/22 11/28/22 Rx oxycodone-acetaminophen 5 mg-325 1 tab PO Q4H PRN pain #18 tabs 11/24/22 11/28/22 Rx mg tablet (Percocet) multivitamin 1 tab PO DAILY 11/28/22 11/28/22 History Patient History Medical History Atypical squamous cells of undetermined significance (ASC-US) on cervical Pap smear HEYDI I (cervical intraepithelial neoplasia I) History of chicken pox History of migraine IUD (intrauterine device) in place leanna- 10/21/17 Varicose veins of legs Surgical History H/O colposcopy with cervical biopsy H/O LEEP 02/26, persistent heydi 1 History of surgical removal of skin lesion Family History Father Bleeding disorder Cardiac disorder Mother Dementia Breast cancer, Onset Age: 78 Denies family history of Ovarian cancer Colorectal cancer Social History Smoking Status: Former smoker Hx Alcohol Use: No Hx Substance Use: No Preferred Language: Greenlandic Communication Ability: Effective Visual Impairment: No Limitations Hearing Ability: Normal Hostler Helper Required: No Beliefs That Will Affect Care: None marital status: Current Living Situation: Spouse current occupational status: employed current occupation: self employed Other Information That Helps Us Care for You: No Feels Safe at Home: Yes Childhood Exposure to Second-Hand Smoke: Yes Dental Care, Regularly: Yes Physical Activity Frequency: Does not Exercise Seatbelt Use: always Sunscreen Use: Yes (sometimes) Assistive Devices: Glasses Review of Systems Constitutional: + fever; no chills Eyes: no eye pain Ear, Nose, Mouth, Throat: no ear pain Respiratory: + pain on inspiration Cardiovascular: + chest pain Gastrointestinal: as per Subjective / HPI Genitourinary: no dysuria Musculoskeletal: no back pain Integumentary: no rash Neurologic: no localized weakness Physical Exam Constitutional: well developed, well nourished and + ill appearing Eyes: no conjunctival abnormality ENMT: Ears: no hearing impairment and no external ear abnormality Mouth: no oropharynx abnormality Oral mucosa appears dry Neck: trachea midline Respiratory: Breath sounds are present. She is not using senior branch manager muscles to aid in respiration. There is no wheezing. Breath sounds are slightly decreased at the bases Cardiovascular: Rate/Rhythm: regular rate, regular rhythm and + tachycardic Gastrointestinal (Abdomen): Abdomen is soft and nonrigid. It is minimally distended. The patient had an incision that was clean, dry, intact without drainage and is intact with sabine. There is no surrounding erythema. 2 RAJ[address] drains are in place draining serous and serosanguineous fluid. There did not appear to be any puslike drainage. Patient did have some pain with palpation greatest over her surgical incision. There did not appear to be any rebound tenderness at the time of my exam. Musculoskeletal: No calf tenderness Skin: no rashes Neurologic: moves all extremities Psychiatric: A+Ox3, euthymic affect Results & Data ([facility]) Vital Signs (Past 12 Hours) Vital Signs Temp Pulse Resp BP Pulse Ox O2 Del Method 11/28/22 05:15 100 H 11/28/22 05:21 105 H 17 98 Room Air 11/28/22 04:53 36.4 C L 110 H 18 111/78 95 Room Air PG Care Time/CCT Total # of Minutes Spent Total Time Spent with Patient: Total time spent is greater than 50% in coordination of care (as documented) at patient's floor/unit and/or counseling patient: Coding Level of Care Code OFFICE CONSULT LVL 3, 30 MIN Diagnoses Abdominal pain R10.31 Abdominal location: right lower quadrant (1) Abdominal pain Abdominal location: right lower quadrant Qualified Code(s): R10.31 - Right lower quadrant pain
[2022-11-28] MEDS ORDERED: OPTIRAY 320 500ml IV ONE (06:30)
[2022-11-28 06:31] LABS: Pregnancy Test, Serum Negative (Negative)
--- NOTE | 2022-11-28 06:49 | CT Scan Report ---
CT ANGIOGRAM OF THE CHEST; CT SCAN OF THE ABDOMEN AND PELVIS WITH IV CONTRAST CLINICAL HISTORY: Dyspnea. Atypical chest pain. Recent appendectomy. COMPARISON STUDY: Abdominal CT dated 11/19/2022. TECHNIQUE: Following the IV administration of 114 of Optiray 320, CT angiogram of the chest is perfor med from the upper abdomen to the thoracic inlet utilizing the pulmonary embolus protocol. Images are reviewed in the axial, sagittal, coronal planes. 3-D MIPS images are created and assessed. Subsequen tly, CT scan of the abdomen and pelvis was performed from the lung bases to the proximal femora. Imag es are reviewed in the axial, sagittal, and coronal planes. IV contrast was administered without comp lication. A dose lowering technique was utilized adhering to the principles of ALARA. The examination s are degraded by streak artifact from the arms which could not be elevated above the chest or abdome n. CT DOSE: 1287.68 mGy.cm FINDINGS: CHEST: Thyroid: Imaged portions of the thyroid gland are normal in size and attenuation. Thoracic aorta: The thoracic aorta is normal in caliber and demonstrates standard 3-vessel arch anato my. No dissection is seen. Pulmonary vasculature: The pulmonary trunk is normal in caliber. There are no filling defects identif ied in the main, lobar, or segmental pulmonary arteries to indicate pulmonary embolus. Heart: The heart is normal in size and without pericardial effusion. Lungs and pleural spaces: There is a cqrgh-kc-gkbuwmsu and at least partially loculated right pleural effusion with right basilar consolidation. Trace pleural fluid is seen on the left with dependent at electasis. The trachea and central airways are clear. Mediastinum: There is no mediastinal lymphadenopathy. Capri: Clear. Axillae: There is no axillary lymphadenopathy. Bony thorax: No lytic or blastic lesions are identified. Soft tissues: A 3.7 cm sebaceous cyst is noted in the left lower back. ABDOMEN AND PELVIS: Liver: The contrast-enhanced liver is normal in size, contour, and attenuation. There is no intrahepa tic biliary ductal dilatation. The hepatic veins and portal veins are patent. Gallbladder: Unremarkable. Spleen: Normal in size and attenuation. Pancreas: Unremarkable. Adrenal glands: Unremarkable. Kidneys: The contrast enhanced kidneys are normal in size and without hydronephrosis. The kidneys enh ance symmetrically. Renal sinus cysts are seen bilaterally. A 12 mm cortical cyst is again seen in th e left upper pole. Abdominal vasculature: The abdominal aorta is normal in course and caliber noting mild atheroscleroti c calcification. Stomach and bowel: There is a small hiatal hernia. Kbfv-jo-xqehpapk fecal retention is seen throughou t the colon. No bowel obstruction is identified. The appendix is surgically absent. Peritoneum: 2 surgical drains are present in the right mid abdomen from a right lower quadrant and an terior pelvic approach. There is inflammation and stranding around the tip of the catheter which is l ocated adjacent to the base of the cecum with trace fluid and gas. Due to the second catheter is loca avinash in the right anterior pelvis. No organized/drainable fluid collection is identified. Lymphadenopathy: None. Pelvic viscera: The bladder is mildly distended and contains foci of intraluminal gas. The bladder is otherwise normal as visualized. The uterus and adnexa are normal as imaged noting an intrauterine de vice in place. Skeletal structures: No lytic or blastic lesions are seen. Soft tissues: Soft tissue infiltration is seen throughout the right lower quadrant abdominal wall wit h some clips in place. This is likely on a postoperative basis. There is a thin crescentic fluid alan ection the right anterior pelvic wall musculature seen on image #305 which measures 1.8 x 0.6 cm. IMPRESSION: 1. There is no evidence of pulmonary embolus in the main, lobar, or segmental pulmonary arteries. 2. There is a small to moderate at least partially loculated right pleural effusion with right basila r consolidation. This could represent atelectasis and/or pneumonia and clinical correlation will be r equired. 3. Trace pleural fluid is seen on the left with dependent atelectasis. 4. Status post interval appendectomy as compared to 11/19/2022. 5. There are 2 surgical drains present in the right lower quadrant. 6. There is inflammation identified adjacent to the base of the cecum around one of the surgical drai ns with trace residual fluid and foci of gas. No organized intraperitoneal fluid collection is identi fied. 7. There is a tiny fluid collection within the right anterior pelvic wall musculature which measures up to 1.8 cm. This could represent a postoperative seroma/hematoma. The sterility of this fluid canno t be assessed by imaging and clinical correlation will be required. 8. Gas within the bladder lumen may be related to instrumentation. Correlate with urinalysis. 9. Additional findings as above. ACT 112: Negative or not required by law. Electronically signed by: Ravinder Mora M.D. 11/28/2022 6:47 AM
[2022-11-28] MEDS ORDERED: HYDROmorphone INJ 0.5 MG/0.5 ML SYR IV STA (07:10)
[2022-11-28 07:24] LABS: Appearance Urine Clear (Clear); Bilirubin Urine Negative (Negative); Blood Urine Negative (Negative); Color Urine Yellow; Glucose Urine UA Negative (Negative); Ketones Urine Trace (Negative); Leukocyte Esterase Urine Negative (Negative); Nitrite Urine Negative (Negative); Protein Urine Negative (Negative); Specific Gravity Urine 1.025 (1.000-1.030); Urobilinogen Urine Negative (Negative); pH Urine 5.5 (4.5-7.5)
[2022-11-28] MEDS ORDERED: HYDROmorphone INJ 0.5 MG/0.5 ML SYR IV PRN (09:28)
[2022-11-28] MEDS ORDERED: ACETAMINOPHEN 1,000 MG/100 ML VIAL IV PRN (09:28)
[2022-11-28] MEDS ORDERED: PIPERACILLIN/TAZOBACTAM 4.5 GM in DEXTROSE 5% 100 ML IV SCH (09:28)
--- NOTE | 2022-11-28 09:29 | History & Physical Report ---
Date of Service November 28, 2022 Assessment & Plan (1) Pneumonia: Plan: Acute serious risk, possible empyema Ct chest There is a small to moderate at least partially loculated right pleural effusion with right basilar consolidation. This could represent at electasis and/or pneumonia. Clinical correleation suggests pneumonia Follow blood cultures, continue Zosyn Consider pulmonary consultation for empyema, however loculation may prevent drainage, may require higher level of care (2) Abdominal pain: Plan: Acute serious risk patient has associate abdominal pain and postoperative state, surgery is seen does not feel any acute need for invasive procedure. Surgical drains are present. Inflammation adjacent to the base of the cecum around one of the surgical drains with trace residual fluid and foci of gas. Tiny fluid collection within the right anterior pelvic wall musculature represents 1.8 cm could be postoperative sterile hematoma. Antibiotics will be useful to address both of these issues and if clinical correlation required additional imaging may be performed in the future. Plan Patient will be on SCDs at this point time until procedures are considered if procedures are not warranted we will institute chemoprophylaxis for DVT as patient is high risk with degree of inflammation and pelvic procedure recently. History of Present Illness Primary Care Provider: Jose Disla MD 52-year-old female who presents to the emergency department with increased right-sided chest and abdomen pain. Patient was discharged from [facility] on November 24 after a perforated appendectomy with open procedure and residual drains. Patient was discharged with an additional 1 week course of Cipro Flagyl after being on Zosyn while hospitalized. Patient states that she had been persistently painful since discharge but the pain was intensifying mostly on the right lower chest right upper abdomen which prompted her to be reevaluated the emergency department. In the emergency department the patient is found to have leukocytosis of 18,000, chest CT abdomen pelvis does not show PE but does show loculated right basilar pleural effusion with associated infiltrate and inflammatory changes surrounding the appendectomy site with persistent drains in place which have been draining serous discharge Patient had blood cultures obtained, surgical evaluation in the emergency department felt this is more of a medical admission, and patient was initiated on Zosyn therapy which will be continued as along with pain control n.p.o. status and parenteral hydration Consideration of pulmonary consultation for loculated pleural effusion in case this would be considered empyema. Allergies Allergy/AdvReac Type Severity Reaction Status Date / Time No Known Drug Allergies Allergy Verified 11/28/22 06:42 Home Medications Medication Instructions Recorded Confirmed Type diphenhydramine HCl 25 mg tablet 25 mg PO PRN allergies 07/11/19 11/28/22 History cholecalciferol (vitamin D3) 1 cap PO DAILY 02/21/20 11/28/22 History riboflavin (vitamin B2) 1 tab PO DAILY 02/21/20 11/28/22 History coenzyme Q10 100 mg capsule 100 mg PO DAILY 09/29/20 11/28/22 History levonorgestrel 21 mcg/24 hours (8 1 device intrauterine CONTINOUS 12/25/21 11/28/22 History yrs) 52 mg intrauterine device (Mirena) estradiol 0.01% (0.1 mg/gram) 1 g vaginal .COMPLEX #42.5 grams 01/01/22 11/28/22 Rx vaginal cream famotidine 40 mg tablet See Rx Instructions .Route 01/18/22 11/28/22 Rx .COMPLEX #90 tabs cyclobenzaprine 10 mg tablet 10 mg PO HS PRN muscle spasm #30 05/20/22 11/28/22 Rx tabs propranolol 80 mg capsule,24 80 mg PO DAILY #30 caps 08/23/22 11/28/22 Rx hr,extended release topiramate 100 mg tablet 50 mg PO DAILY 10/05/22 11/28/22 History sumatriptan succinate 100 mg tablet See Rx Instructions PO .COMPLEX 11/15/22 11/28/22 Rx #18 tabs ciprofloxacin HCl 500 mg tablet 500 mg PO BID #14 tabs 11/24/22 11/28/22 Rx metronidazole 500 mg tablet 500 mg PO TID #21 tabs 11/24/22 11/28/22 Rx oxycodone-acetaminophen 5 mg-325 1 tab PO Q4H PRN pain #18 tabs 11/24/22 11/28/22 Rx mg tablet (Percocet) multivitamin 1 tab PO DAILY 11/28/22 11/28/22 History Past Med/Surg History Medical History (Updated 11/29/22 @ 15:03 by Edgardo Goodman MD) Atypical squamous cells of undetermined significance (ASC-US) on cervical Pap smear HEYDI I (cervical intraepithelial neoplasia I) History of chicken pox History of migraine IUD (intrauterine device) in place leanna- 10/21/17 Parapneumonic effusion Pleurisy Varicose veins of legs Surgical History H/O colposcopy with cervical biopsy H/O LEEP 02/26, persistent heydi 1 History of surgical removal of skin lesion Family History Father Bleeding disorder Cardiac disorder Mother Dementia Breast cancer, Onset Age: 78 Denies family history of Ovarian cancer Colorectal cancer Social History Smoking Status: Former smoker Hx Alcohol Use: No Hx Substance Use: No Preferred Language: Tamazight Communication Ability: Effective Visual Impairment: No Limitations Hearing Ability: Normal Locator Specialist Required: No Beliefs That Will Affect Care: None marital status: Current Living Situation: Spouse current occupational status: employed current occupation: self employed Other Information That Helps Us Care for You: No Feels Safe at Home: Yes Childhood Exposure to Second-Hand Smoke: Yes Dental Care, Regularly: Yes Physical Activity Frequency: Does not Exercise Seatbelt Use: always Sunscreen Use: Yes (sometimes) Assistive Devices: Glasses Physical Exam Physical Exam: Patient is awake alert and oriented she is in moderate distress from abdominal pain. Her cardiac exam is tachycardic and regular without murmurs Her lung exam is diminished breath sounds both bases due to splinting right bases more so. Difficult to determine if she is got dullness because she is fairly significant pain. I hear no pleural rubs Her abdomen is bowel sounds present slightly hypoactive she is a surgical wound in the right lower quadrant which is stapled in place there is other smaller wounds likely from the laparoscopic port which are sutured. She has 2 drains which are draining a serous fluid. Exams tender to touch and difficult to examine she is not rigid however there is some rebound discomfort Her extremities are without edema her peripheral pulses are intact her skin is without rashes but the surgical wounds are intact with minor erythema of looks to be inflammation from the sabine sutures etc. Results & Data Results & Data ([facility]) Vital Signs (Past 12 Hours) Vital Signs Temp Pulse Pulse Resp BP BP Pulse Ox 11/28/22 08:30 94 11/28/22 08:30 107/75 11/28/22 08:00 95 11/28/22 08:00 106/74 11/28/22 07:30 95 11/28/22 07:30 104/65 11/28/22 07:00 74 14 104/68 98 11/28/22 05:15 100 H 11/28/22 05:21 105 H 17 98 11/28/22 04:53 97.5 F L 110 H 18 111/78 95 O2 Del Method 11/28/22 08:30 Room Air 11/28/22 08:30 11/28/22 08:00 Room Air 11/28/22 08:00 11/28/22 07:30 Room Air 11/28/22 07:30 11/28/22 07:00 Room Air 11/28/22 05:15 11/28/22 05:21 Room Air 11/28/22 04:53 Room Air Laboratory Results Reviewed CBC, mchemistry panel, negative test, negative lipase, negative urine analysis, negative COVID testing ECG Additional Comments: Normal sinus rhythm no acute ST or T wave changes Code Status & VTE Plan VTE Prophylaxis Plan VTE Prophylaxis will be ordered: Yes PG Care Time/CCT Total # of Minutes Spent Total Time Spent with Patient: Total time spent is greater than 50% in coordination of care (as documented) at patient's floor/unit and/or counseling patient: Coding Level of Care Code 33307 INT INP/OBS CARE 75MIN Diagnoses Pneumonia J18.9 Laterality: right Lung location: lower lobe of lung Pneumonia type: due to unspecified organism Abdominal pain R10.31 Abdominal location: right lower quadrant (1) Pneumonia Laterality: right Lung location: lower lobe of lung Pneumonia type: due to unspecified organism Qualified Code(s): J18.9 - Pneumonia, unspecified organism (2) Abdominal pain Abdominal location: right lower quadrant Qualified Code(s): R10.31 - Right lower quadrant pain
[2022-11-28] MEDS: HYDROmorphone INJ 1 MG/ML SYRINGE IV PRN ×4 (09:47→22:26)
[2022-11-28] MEDS: SODIUM CHLORIDE 0.9% 1000ML 1,000 ML IV SCH ×2 (10:42→18:30)
[2022-11-28] MEDS: ONDANSETRON INJ 2 MG/ML 2 ML VIAL IV PRN (11:47)
[2022-11-28] MEDS: TOPIRAMATE 100 MG TAB PO SCH (13:00)
[2022-11-28] MEDS: PIPERACILLIN/TAZOBACTAM 3.375 GM in DEXTROSE 5% 100 ML IV SCH ×2 (13:00→19:52)
[2022-11-28] MEDS ORDERED: HEPARIN SOD 5,000 UNIT/0.5 ML VIAL SQ STA (13:58)
[2022-11-28] MEDS ORDERED: LEVONORGESTREL (MIRENA) IUD PV SCH (14:00)
--- NOTE | 2022-11-28 15:03 | Electrocardiogram Report ---
Test Reason : Blood Pressure : / mmHG Vent. Rate : 102 BPM Atrial Rate : 102 BPM P-R Int : 132 ms QRS Dur : 074 ms QT Int : 342 ms P-R-T Axes : 040 011 011 degrees QTc Int : 445 ms Poor data quality, interpretation may be adversely affected Sinus tachycardia Nonspecific T wave abnormality When compared with ECG of 19-NOV-2022 13:36, Criteria for Inferior infarct are no longer Present Nonspecific T wave abnormality in the inferior leads Confirmed by Chon Garner ([id number]) on 11/28/2022 3:03:22 PM Referred By: Jose Disla Confirmed By:Chon Garner
[2022-11-29] MEDS: SODIUM CHLORIDE 0.9% 1000ML 1,000 ML IV SCH ×3 (02:30→18:37)
[2022-11-29] MEDS: HYDROmorphone INJ 1 MG/ML SYRINGE IV PRN ×4 (04:07→22:38)
[2022-11-29] MEDS: PIPERACILLIN/TAZOBACTAM 3.375 GM in DEXTROSE 5% 100 ML IV SCH ×3 (04:07→19:41)
[2022-11-29 07:22] LABS: Albumin Globulin Ratio 1.1 (0.9-2); BUN Creatinine Ratio 10.3 (10-20); Bilirubin,Total 0.4 mg/dl (0.2-1.0); Calcium 8.2 mg/dl (8.5-10.1); Creatinine Clr Calc Pharmacy 104.7 ml/min; Est GFR (African American) 116.6 ml/min; Est GFR (Non-African American) 100.6 ml/min; Globulin 2.8 gm/dl (2.5-4.0); Potassium 3.5 mmol/L (3.5-5.1); Total Protein 5.8 gm/dl (6.0-8.3)
[2022-11-29] MEDS: TOPIRAMATE 100 MG TAB PO SCH (07:57)
[2022-11-29] MEDS ORDERED: HYDROmorphone INJ 2 MG/ML SYR/VIAL IV STA (10:59)
[2022-11-29] MEDS ORDERED: ACETAMINOPHEN 1,000 MG/100 ML VIAL IV PRN (10:59)
--- NOTE | 2022-11-29 12:01 | Pulmonary Consultation ---
Date of Consultation November 29, 2022 Assessment & Plan (1) Parapneumonic effusion: (2) Pneumonia: Laterality: right Lung location: lower lobe of lung Pneumonia type: due to unspecified organism Qualified Code(s): J18.9 - Pneumonia, unspecified organism (3) Pleurisy: Plan Patient with a moderate-sized right loculated pleural effusion likely parapneumonic effusion secondary to pneumonia. Perhaps secondary to the abdominal process. Pigtail catheter placed today with approximately 500 mL of fluid immediately removed. Fluid sent for cell counts, Light's criteria, glucose cultures and cytology. We will consider instillation of tPA and dornase starting tomorrow if no significant improvement in chest x-ray over the next day or so. Continue with broad-spectrum antibiotics. Thank you for the consultation. Please call with questions. History of Present Illness Reason for Consultation: Right-sided pleural effusion which appears loculated Attending Physician: Rambo Norman MD History of Present Illness 52-year-old female with a history of recent appendectomy performed by Dr. Zacarias on 11/19/2022. She was found to have a perforated gangrenous appendix. She was ultimately discharged home about 5 days later. She was discharged with [address] She returned to the hospital 11/28/2022 due to signs of sepsis and increasing pleurisy. CT of the chest was obtained which revealed a moderate-sized loculated right pleural effusion. Patient is currently on Zosyn. She received a dose of subcu heparin yesterday. She has been having severe pleurisy and shortness of breath. She denies any fevers or chills at this time. Allergies Allergy/AdvReac Type Severity Reaction Status Date / Time No Known Drug Allergies Allergy Verified 11/28/22 06:42 Home Medications Medication Instructions Recorded Confirmed Type diphenhydramine HCl 25 mg tablet 25 mg PO PRN allergies 07/11/19 11/28/22 History cholecalciferol (vitamin D3) 1 cap PO DAILY 02/21/20 11/28/22 History riboflavin (vitamin B2) 1 tab PO DAILY 02/21/20 11/28/22 History coenzyme Q10 100 mg capsule 100 mg PO DAILY 09/29/20 11/28/22 History levonorgestrel 21 mcg/24 hours (8 1 device intrauterine CONTINOUS 03/18/22 02/19/23 History yrs) 52 mg intrauterine device (Mirena) estradiol 0.01% (0.1 mg/gram) 1 g vaginal .COMPLEX #42.5 grams 01/01/22 11/28/22 Rx vaginal cream famotidine 40 mg tablet See Rx Instructions .Route 01/18/22 11/28/22 Rx .COMPLEX #90 tabs cyclobenzaprine 10 mg tablet 10 mg PO HS PRN muscle spasm #30 05/20/22 11/28/22 Rx tabs propranolol 80 mg capsule,24 80 mg PO DAILY #30 caps 08/23/22 11/28/22 Rx hr,extended release topiramate 100 mg tablet 50 mg PO DAILY 10/05/22 11/28/22 History sumatriptan succinate 100 mg tablet See Rx Instructions PO .COMPLEX 11/15/22 11/28/22 Rx #18 tabs ciprofloxacin HCl 500 mg tablet 500 mg PO BID #14 tabs 11/24/22 11/28/22 Rx metronidazole 500 mg tablet 500 mg PO TID #21 tabs 11/24/22 11/28/22 Rx oxycodone-acetaminophen 5 mg-325 1 tab PO Q4H PRN pain #18 tabs 11/24/22 11/28/22 Rx mg tablet (Percocet) multivitamin 1 tab PO DAILY 11/28/22 11/28/22 History Patient History Medical History (Updated 11/29/22 @ 15:03 by Edgardo Goodman MD) Atypical squamous cells of undetermined significance (ASC-US) on cervical Pap smear ALEJANDRA I (cervical intraepithelial neoplasia I) History of chicken pox History of migraine IUD (intrauterine device) in place leanna- 10/21/17 Parapneumonic effusion Pleurisy Varicose veins of legs Surgical History H/O colposcopy with cervical biopsy H/O LEEP 02/26, persistent alejandra 1 History of surgical removal of skin lesion Family History Father Bleeding disorder Cardiac disorder Mother Dementia Breast cancer, Onset Age: 78 Denies family history of Ovarian cancer Colorectal cancer Social History Smoking Status: Former smoker Hx Alcohol Use: No Hx Substance Use: No Preferred Language: Bur[place]ian Communication Ability: Effective Visual Impairment: No Limitations Hearing Ability: Normal Security Sales Consultant Required: No Beliefs That Will Affect Care: None marital status: Current Living Situation: Spouse current occupational status: employed current occupation: self employed Other Information That Helps Us Care for You: No Feels Safe at Home: Yes Childhood Exposure to Second-Hand Smoke: Yes Dental Care, Regularly: Yes Physical Activity Frequency: Does not Exercise Seatbelt Use: always Sunscreen Use: Yes (sometimes) Assistive Devices: Glasses Review of Systems Review of Systems: All systems reviewed & are unremarkable except as noted in HPI & below Physical Exam Physical Exam: Constitutional: Patient appears to be of their stated age. Patient is in no apparent distress. Patient is well-developed. Moderate distress Eyes: Pupils are equal round and reactive to light. Conjunctivae are normal. Anicteric sclera. Ears nose, mouth and throat: Mallampati class 2. Normal posterior oropharynx. Uvula is midline. Neck: Trachea is midline. Visual inspection is normal. Respiratory: Pleural rub on the right. Diminished breath sounds on the right. Cardiovascular: Regular rate and rhythm. No murmurs. No edema. Gastrointestinal: Normal bowel sounds, soft, nontender and nondistended. No hepatosplenomegaly noted. Musculoskeletal: No cyanosis. Patient is able to move all extremities. Skin: No rashes, warm dry and intact. Neurologic: No obvious focal neurological deficits seen. Psychiatric: Alert and oriented x3 with a euthymic affect. Results & Data Results & Data ([facility]) Vital Signs (Past 12 Hours) Vital Signs Temp Pulse Resp BP Pulse Ox O2 Del Method 11/29/22 08:23 Room Air 11/29/22 07:32 36.8 C 88 18 114/72 92 Room Air PG Care Time/CCT Total # of Minutes Spent Total Time Spent with Patient: Total time spent is greater than 50% in coordination of care (as documented) at patient's floor/unit and/or counseling patient: Coding Level of Care Code INP/OBS CONSULT LVL 5, 80 MIN Diagnoses Parapneumonic effusion J18.9; J91.8 Pneumonia J18.9 Laterality: right Lung location: lower lobe of lung Pneumonia type: due to unspecified organism Pleurisy R09.1
[2022-11-29 12:51] LABS: INR 1.1 (0.9-1.1); Prothrombin Time 11.6 Seconds (9.0-12.0)
[2022-11-29] MEDS ORDERED: LIDOCAINE 1% LOCAL 20 ML VIAL INFIL ONE (14:00)
[2022-11-29] MEDS ORDERED: LIDOCAINE 2% LOCAL 50 ML VIAL INFIL ONE (14:00)
--- NOTE | 2022-11-29 14:36 | Procedure Note ---
Procedure Note Date of Service November 29, 2022 Note PIGTAIL CATHETER PLACEMENT NOTE: Procedure: Pigtail Catheter Chest Tube Placement Indication: Right pleural effusion Anesthesia: 15 mL lidocaine 1% Written consent was obtained and placed on the chart. Timeout was done prior to the procedure. Prior to procedure, chest x-ray films were reviewed by myself and demonstrated a loculated right pleural effusion. A time-out was completed verifying correct patient, procedure, site, positioning, and implant(s) or special equipment if applicable. Utilizing bedside ultrasound, chest wall was evaluated for location for optimal chest tube placement. Location between the fifth and 6 ribs were marked on the skin using gentle pressure. The right sided chest wall was prepped with chlorhexidine and draped in the typical sterile fashion. 15 mL of 1% Lidocaine without epinephrine was used to anesthetize the skin down to the dorsal surface of the fifth rib. Serosanguineous fluid return confirmed entry into the pleural space. Lidocaine was injected into the pleural space for increased anesthetization. Introducer needle on syringe was inserted in perpendicular fashion taking care to ride just above the dorsal surface of the left rib. Entry into the pleural space was heralded by serosanguineous fluid return into the syringe while under gentle aspiration. Guide wire was advanced into the pleural space without resistance and the introducer needle was subsequently removed. Scalpel was used to make small incision of the superficial tissue, parallel to the direction of the rib anatomy. Dilator was advanced uneventfully over the guide wire into the pleural space. 14 Kosovan Pigtail Catheter was inserted into the pleural space. Inner introducer and guide wire were removed. Drain was immediately connected to pre-prepared VALENTIN pleur-evac system. Pigtail was sutured securely in place and sterile dressing was applied. Chest tube was placed to -20 cmH2O suction. Patient tolerated procedure well. Blood Loss: Minimal Complications: None Coding CPT Codes Pulmonary/Thoracic - Pulmonary and Thoracic: 15793 Tube thoracostomy ([id number]) [facility] [place] Procedure Codes (Charges) Pulmonary/Thoracic Procedure 1: Pulmonary and Thoracic: 75851 Tube thoracostomy
--- NOTE | 2022-11-29 14:53 | XRay Report ---
XR chest 1V portable CLINICAL HISTORY: s/p chest tube TECHNIQUE: Single frontal radiograph of the chest was obtained. Comparison: Comparison is made to CTA chest March 28, 2023 FINDINGS: There is a right pleural catheter. Cardiomegaly is noted. Right greater than left atelectasis is seen . There may be a residual right pleural effusion. No pneumothorax is seen. IMPRESSION: Interval placement of a pleural catheter with no evidence of pneumothorax. Pleural effusion and atele ctasis are again seen on the right. ACT 112: Negative or not required by law. Electronically signed by: Jc Camejo M.D. 11/29/2022 2:51 PM
[2022-11-29 15:48] LABS: Amylase Peritoneal Fluid 33 U/L
[2022-11-29 15:53] LABS: Glucose Peritoneal Fluid 85 mg/dl; LDH Peritoneal Fluid 483 U/L
[2022-11-29] MEDS ORDERED: PROPRANOLOL HCL 10 MG TAB PO ONE (16:31)
--- NOTE | 2022-11-29 16:37 | Hospitalist Progress Note ---
Date of Service November 29, 2022 Assessment & Plan (1) Pneumonia: Plan: Acute serious risk, possible empyema Ct chest There is a small to moderate at least partially loculated right pleural effusion with right basilar consolidation. This could represent at electasis and/or pneumonia. Clinical correleation suggests pneumonia Follow blood cultures, continue Carter I personally discussed the case with Dr. Goodman or pulmonology on-call who agreed to evaluate the patient to consider thoracentesis which later was performed under ultrasound guidance reportedly the fluid was cloudy (2) Abdominal pain: Plan: Acute serious risk likely referred pain from parapneumonic effusion empyema patient has associate abdominal pain and postoperative state, surgery is seen does not feel any acute need for invasive procedure. Surgical drains are present. Inflammation adjacent to the base of the cecum around one of the surgical drains with trace residual fluid and foci of gas. Tiny fluid collec tion within the right anterior pelvic wall musculature represents 1.8 cm could be postoperative sterile hematoma. Antibiotics will be useful to address both of these issues (3) History of migraine: Plan: Chronic stable patient request reinstitution of medications of propranolol and as needed sumatriptan as she is fearful her aunt migraine headaches will recur Plan Patient will be on SCDs at this point time until procedures are considered if procedures are not warranted we will institute chemoprophylaxis for DVT as patient is high risk with degree of inflammation and pelvic procedure recently. Admission and Anticipated Discharge Date Admission Date: November 28, 2022 Subjective Patient still having significant pain on the right side mostly the right lower rib cage. She is without rashes over the area. Her abdomen is NABS she is uncomfortable her surgical sites are clean dry and intact but her pain is mostly seemingly pleuritic in nature Physical Exam Physical Exam: Patient is awake alert and oriented she is in moderate distress from abdominal pain. Her cardiac exam is tachycardic and regular without murmurs Her lung exam continues to show diminished breath sounds both bases due to splinting right bases more so. no pleural rubs Her abdomen is bowel sounds present surgical wound in the right lower quadrant which is stapled in place there is other smaller wounds likely from the laparoscopic port which are sutured. She has 2 drains which are draining a serous fluid. Exams tender to touch but not rigid Her extremities are without edema her peripheral pulses are intact Results & Data Results & Data ([place]) Vital Signs (Past 12 Hours) Vital Signs Temp Pulse Pulse Resp BP Pulse Ox Pulse Ox 11/29/22 16:31 93 11/29/22 14:32 98.6 F 107 H 16 125/78 93 11/29/22 08:23 11/29/22 07:32 98.2 F 88 18 114/72 92 O2 Del Method O2 Del Method 11/29/22 16:31 Room Air 11/29/22 14:32 Room Air 11/29/22 08:23 Room Air 11/29/22 07:32 Room Air Diagnostic Findings Reviewed chemistry panel PG Care Time/CCT Total # of Minutes Spent Total Time Spent with Patient: Total time spent is greater than 50% in coordination of care (as documented) at patient's floor/unit and/or counseling patient: Coding Level of Care Code 03933 SUB INP/OBS CARE 2/35MIN Diagnoses Pneumonia J18.9 Laterality: right Lung location: lower lobe of lung Pneumonia type: due to unspecified organism Abdominal pain R10.31 Abdominal location: right lower quadrant History of migraine Z86.69 (1) Pneumonia Laterality: right Lung location: lower lobe of lung Pneumonia type: due to unspecified organism Qualified Code(s): J18.9 - Pneumonia, unspecified organism (2) Abdominal pain Abdominal location: right lower quadrant Qualified Code(s): R10.31 - Right lower quadrant pain
[2022-11-29 16:42] LABS: Appearance Pleural Fluid Cloudy; Color Pleural Fluid Red; Eosinophils, Fluid 1 %; Lymphocytes, Fluid 16 %; Mono,Macrophage,Mesothelial 4 %; Neutrophils, Fluid 79 %; RBC Pleural Fluid Auto 28000 /uL; Source Pleural Fluid Right Lung; WBC Pleural Fluid Auto 11416 /uL
[2022-11-29] MEDS: SUMAtriptan succinate 100 MG TAB PO PRN (17:18)
[2022-11-29] MEDS: FAMOTIDINE 20 MG TAB PO SCH (17:19)
--- NOTE | 2022-11-29 18:03 | Surgery Progress Note ---
Date of Service November 29, 2022 Assessment & Plan (1) Postoperative follow-up: Plan: pt is a 52 year-old female who is post-op Day 10 for appendectomy + 2 RAJIV drainage for perforated appendicitis, pt was re-admitted for hospital for right chest pain,pneumonia and right pleural effusion. pt is doing better, I pulled out middle RAJIV , regular diet, repeat labs in morning, OOB continue antibiotic will F/U, Admission and Anticipated Discharge Date Admission Date: November 28, 2022 Supervising Physician Co-Signing Physician Notes As per Galindo Maynard physician assistant auto center manager I talked to the patient late last evening after the answering service patient main at the patient had some issues When I talked her she is complaining significant abdominal pain rib pain chest pain that it started earlier in the day therefore I recommended her to come to the emergency room which she did and worked up showed mostly primary etiology of all discomfort seems to be pulmonary in nature (pleural effusion) and given the clinical presentation elevated white count likely empyema Examined the patient this morning still has occasional cough her abdomen soft the incision is healed well intraperitoneal drains serosanguineous nonpurulent drainage Pulmonary scheduled to see patient regarding the issues stated above Subjective Patient still having significant pain on the right side mostly the right lower rib cage. She is without rashes over the area. Her abdomen is NABS she is uncomfortable her surgical sites are clean dry and intact but her pain is mostly seemingly pleuritic in nature 11/29/2022 6:[address] Zacarias F/U S/P appendectomy, for perforated appendicitis, with 2 RAJIV drainage, pt was re-admitted to hospital for right side chest pain, pt feels better today, less pain, no fever, no diarrhea, RAJIV 37 ml clear color Physical Exam Constitutional: WD/WN, vitals as above Eyes: PERRL, conjunctivae normal, anicteric sclerae Neck: trachea midline, no thyromegaly Respiratory: normal respiratory effort, lungs clear to auscultation Cardiovascular: RRR, no murmur, no edema Gastrointestinal (Abdomen): soft, mild tenderness at RLQ area, no rebound pain, no distend, 2 RAJIV intact, middle one less drainage, clear color, right side RAJIV is intact, some cloud color, BS +, Musculoskeletal: no cyanosis or clubbing, extremities motor strength 5/5 Neurologic: patellar DTR's 2+ bilat, sensation intact Psychiatric: A+Ox3, euthymic affect Results & Data ([facility]) Vital Signs (Past 12 Hours) Vital Signs Temp Pulse Pulse Resp BP Pulse Ox Pulse Ox 11/29/22 16:31 93 11/29/22 14:32 37 C 107 H 16 125/78 93 11/29/22 08:23 11/29/22 07:32 36.8 C 88 18 114/72 92 O2 Del Method O2 Del Method 11/29/22 16:31 Room Air 11/29/22 14:32 Room Air 11/29/22 08:23 Room Air 11/29/22 07:32 Room Air Laboratory Results Abnormal lab results 11/29/22 11/29/22 Range/Units 05:49 Unknown Sodium 135 L (136-145) mmol/L Glucose 101 H (70-99(Fasting)) mg/dl Calcium 8.2 L (8.5-10.1) mg/dl Total Protein 5.8 L D (6.0-8.3) gm/dl Albumin 3.0 L (3.4-5.0) gm/dl Pleural pH 7.11 L (7.3-7.4) Diagnostic Findings CT ANGIOGRAM OF THE CHEST; CT SCAN OF THE ABDOMEN AND PELVIS WITH IV CONTRAST CLINICAL HISTORY: Dyspnea. Atypical chest pain. Recent appendectomy. COMPARISON STUDY: Abdominal CT dated 11/19/2022. TECHNIQUE: Following the IV administration of 114 of Optiray 320, CT angiogram of the chest is performed from the upper abdomen to the thoracic inlet utilizing the pulmonary embolus protocol. Images are reviewed in the axial, sagittal, coronal planes. 3-D MIPS images are created and assessed. Subsequently, CT scan of the abdomen and pelvis was performed from the lung bases to the proximal femora. Images are reviewed in the axial, sagittal, and coronal planes. IV contrast was administered without complication. A dose lowering technique was utilized adhering to the principles of ALARA. The examinations are degraded by streak artifact from the arms which could not be elevated above the chest or abdomen. CT DOSE: 1287.68 mGy.cm FINDINGS: CHEST: Thyroid: Imaged portions of the thyroid gland are normal in size and attenuation. Thoracic aorta: The thoracic aorta is normal in caliber and demonstrates standard 3-vessel arch anatomy. No dissection is seen. Pulmonary vasculature: The pulmonary trunk is normal in caliber. There are no filling defects identified in the main, lobar, or segmental pulmonary arteries to indicate pulmonary embolus. Heart: The heart is normal in size and without pericardial effusion. Lungs and pleural spaces: There is a [id number] and at least partially loculated right pleural effusion with right basilar consolidation. Trace pleural fluid is seen on the left with dependent atelectasis. The trachea and central airways are clear. Mediastinum: There is no mediastinal lymphadenopathy. Capri: Clear. Axillae: There is no axillary lymphadenopathy. Bony thorax: No lytic or blastic lesions are identified. Soft tissues: A 3.7 cm sebaceous cyst is noted in the left lower back. ABDOMEN AND PELVIS: Liver: The contrast-enhanced liver is normal in size, contour, and attenuation. There is no intrahepatic biliary ductal dilatation. The hepatic veins and portal veins are patent. Gallbladder: Unremarkable. Spleen: Normal in size and attenuation. Pancreas: Unremarkable. Adrenal glands: Unremarkable. Kidneys: The contrast enhanced kidneys are normal in size and without hydronephrosis. The kidneys enhance symmetrically. Renal sinus cysts are seen bilaterally. A 12 mm cortical cyst is again seen in the left upper pole. Abdominal vasculature: The abdominal aorta is normal in course and caliber noting mild atherosclerotic calcification. Stomach and bowel: There is a small hiatal hernia. [id number] fecal retention is seen throughout the colon. No bowel obstruction is identified. The appendix is surgically absent. Peritoneum: 2 surgical drains are present in the right mid abdomen from a right lower quadrant and anterior pelvic approach. There is inflammation and stranding around the tip of the catheter which is located adjacent to the base of the cecum with trace fluid and gas. Due to the second catheter is located in the right anterior pelvis. No organized/drainable fluid collection is identified. Lymphadenopathy: None. Pelvic viscera: The bladder is mildly distended and contains foci of intraluminal gas. The bladder is otherwise normal as visualized. The uterus and adnexa are normal as imaged noting an intrauterine device in place. Skeletal structures: No lytic or blastic lesions are seen. Soft tissues: Soft tissue infiltration is seen throughout the right lower quadrant abdominal wall with some clips in place. This is likely on a postoperative basis. There is a thin crescentic fluid collection the right anterior pelvic wall musculature seen on image #305 which measures 1.8 x 0.6 cm. IMPRESSION: 1. There is no evidence of pulmonary embolus in the main, lobar, or segmental pulmonary arteries. 2. There is a small to moderate at least partially loculated right pleural effusion with right basilar consolidation. This could represent atelectasis and/or pneumonia and clinical correlation will be required. 3. Trace pleural fluid is seen on the left with dependent atelectasis. 4. Status post interval appendectomy as compared to 11/19/2022. 5. There are 2 surgical drains present in the right lower quadrant. 6. There is inflammation identified adjacent to the base of the cecum around one of the surgical drains with trace residual fluid and foci of gas. No organized intraperitoneal fluid collection is identified. 7. There is a tiny fluid collection within the right anterior pelvic wall musculature which measures up to 1.8 cm. This could represent a postoperative seroma/hematoma. The sterility of this fluid cannot be assessed by imaging and clinical correlation will be required. 8. Gas within the bladder lumen may be related to instrumentation. Correlate with urinalysis. 9. Additional findings as above. ACT 112: Negative or not required by law.
[2022-11-30] MEDS: SODIUM CHLORIDE 0.9% 1000ML 1,000 ML IV SCH ×3 (02:24→18:26)
[2022-11-30] MEDS: PIPERACILLIN/TAZOBACTAM 3.375 GM in DEXTROSE 5% 100 ML IV SCH ×3 (04:56→20:57)
[2022-11-30 06:09] LABS: Basophils # (auto) 0.03 K/uL (0-0.2); Basophils % (auto) 0.3 %; Eosinophils # (auto) 0.15 K/uL (0-0.50); Eosinophils % (auto) 1.5 %; Hematocrit (blood only) 33.2 % (37.0-47.0); Hemoglobin 11.3 g/dl (12.0-16.0); Immature Granulocytes # (auto) 0.07 K/uL (0.01-0.20); Immature Granulocytes % (auto) 0.7 %; Lymphocytes # (auto) 1.76 K/uL (1.2-3.4); Lymphocytes % (auto) 17.1 %; Mean Corpuscular Hemoglobin 30.8 pg (25.0-34.0); Mean Corpuscular Volume 90.5 fL (80.0-100.0); Mean Platelet Volume 9.1 fL (9.4-12.4); Monocytes # (auto) 0.72 K/uL (0.11-0.59); Neutrophils # (auto) 7.58 K/uL (1.40-6.50); Neutrophils % (auto) 73.4 %; Platelet Count 389 K/uL (130-400); RDW Coefficient of Variation 12.7 % (11.5-14.5); RDW Standard Deviation 42.5 fL (36.4-46.3); Red Blood Count 3.67 M/uL (4.20-5.40); White Blood Count 10.31 K/ul (4.8-10.8)
[2022-11-30 06:32] LABS: Albumin Globulin Ratio 1.1 (0.9-2); BUN Creatinine Ratio 8.1 (10-20); Bilirubin,Total 0.3 mg/dl (0.2-1.0); Calcium 8.4 mg/dl (8.5-10.1); Creatinine Clr Calc Pharmacy 114.8 ml/min; Est GFR (African American) 120.2 ml/min; Est GFR (Non-African American) 103.7 ml/min; Globulin 2.8 gm/dl (2.5-4.0); Total Protein 5.8 gm/dl (6.0-8.3)
--- NOTE | 2022-11-30 08:20 | Hospitalist Progress Note ---
Date of Service November 30, 2022 Assessment & Plan (1) Pneumonia: Plan: Acute serious risk, possible empyema Ct chest There is a small to moderate at least partially loculated right pleural effusion with right basilar consolidation. This could represent at electasis and/or pneumonia. Clinical correleation suggests pneumonia Follow blood cultures, continue Zosyn I personally discussed the case with Dr. Goodman pulmonology who performed thoracentesis MIST protocol 11/30/22 by pulmonary medicine (2) Abdominal pain: Plan: Acute improving, moderate risk Surgery is removed one of the 2 drains. They are seeing her on a daily basis. Antibiotics continue clinically her abdominal exam is improved (3) History of migraine: Plan: Chronic stable patient propranolol and as needed sumatriptan as she is fearful her aunt migraine headaches will recur Plan Patient will be on chemoprophylaxis Admission and Anticipated Discharge Date Admission Date: November 28, 2022 Subjective pt is improved but still has pain it is lessened. she still have Chest tube starting MIST protocol 11/30/22 Physical Exam Physical Exam: Patient is awake alert and oriented she is in moderate distress from abdominal pain. Her cardiac exam is tachycardic and regular without murmurs Her lung exam continues to show diminished breath sounds both bases due to splinting right bases more so. no pleural rubs Her abdomen is bowel sounds present surgical wound in the right lower quadrant which is stapled in place there is other smaller wounds likely from the laparoscopic port which are sutured. She has 1 drain removed. 1 drain remains which are draining a serous fluid. abdominal; exam improved Her extremities are without edema her peripheral pulses are intact Results & Data Results & Data ([facility]) Vital Signs (Past 12 Hours) Vital Signs Temp Pulse Resp BP Pulse Ox O2 Del Method 11/30/22 07:34 98.1 F 99 H 16 125/77 94 Room Air 11/29/22 21:55 99.1 F 97 H 18 131/83 95 Room Air Laboratory Results Reviewed CBC Reviewed chemistry PG Care Time/CCT Total # of Minutes Spent Total Time Spent with Patient: Total time spent is greater than 50% in coordination of care (as documented) at patient's floor/unit and/or counseling patient: Coding Level of Care Code 16256 SUB INP/OBS CARE 2/35MIN Diagnoses Pneumonia J18.9 Laterality: right Lung location: lower lobe of lung Pneumonia type: due to unspecified organism Abdominal pain R10.31 Abdominal location: right lower quadrant History of migraine Z86.69 (1) Pneumonia Laterality: right Lung location: lower lobe of lung Pneumonia type: due to unspecified organism Qualified Code(s): J18.9 - Pneumonia, unspecified organism (2) Abdominal pain Abdominal location: right lower quadrant Qualified Code(s): R10.31 - Right lower quadrant pain
[2022-11-30] MEDS: FAMOTIDINE 20 MG TAB PO SCH (08:32)
[2022-11-30] MEDS: MULTIVITAMIN TAB PO SCH (08:32)
[2022-11-30] MEDS: PROPRANOLOL HCL LA 80 MG CAPCR PO SCH (08:32)
[2022-11-30] MEDS: TOPIRAMATE 100 MG TAB PO SCH ×3 (08:33→20:58)
[2022-11-30] MEDS: HYDROmorphone INJ 1 MG/ML SYRINGE IV PRN ×3 (09:00→21:14)
[2022-11-30] MEDS ORDERED: ENOXAPARIN INJ 40 MG/0.4 ML SYR SQ SCH (09:00)
--- NOTE | 2022-11-30 09:18 | Pulmonology Progress Note ---
Date of Service November 30, 2022 Assessment & Plan (1) Parapneumonic effusion: (2) Pneumonia: Laterality: right Lung location: lower lobe of lung Pneumonia type: due to unspecified organism Qualified Code(s): J18.9 - Pneumonia, unspecified organism (3) Pleurisy: (4) Dyspnea: Plan Status post pigtail catheter on the right 11/29/2022. Fluid looks to be consistent with parapneumonic effusion or empyema. Will initiate mist2 protocol today. Continue daily chest x-rays. Chest x-ray today stable compared to yesterday. Basilar chest tube noted. Hypoxemia and dyspnea improving with drainage. Pleurisy also improved. Continue with broad-spectrum antibiotics. Leukocytosis has resolved. Cultures from the pleural fluid are pending. Blood cultures negative x48 hours. Pain control per primary team. Thank you for the consultation. Please call with questions. Admission and Anticipated Discharge Date Admission Date: November 28, 2022 Subjective Her shortness of breath and pleurisy has improved, but not resolved completely. She did have a better night sleeping yesterday and the night prior. She is currently saturating in the low 90s on room air. Approximately 400 mL drainage out of the chest tube since insertion. I did unhook the pigtail catheter from the Nahomy drain. I sterilely cleaned the drainage port and instilled 30 cc of sterile saline. I then reattached the Nahomy drain to the pigtail catheter and was able to achieve an increase in flow rate of drainage. Suspect there was some fibrin clogging the pigtail catheter. Review of Systems Review of Systems: All systems reviewed & are unremarkable except as noted in HPI & below Physical Exam Physical Exam: Constitutional: Patient appears to be of their stated age. Patient is in no apparent distress. Patient is well-developed. Moderate distress Eyes: Pupils are equal round and reactive to light. Conjunctivae are normal. Anicteric sclera. Ears nose, mouth and throat: Mallampati class 2. Normal posterior oropharynx. Uvula is midline. Neck: Trachea is midline. Visual inspection is normal. Respiratory: Pleural rub on the right. Diminished breath sounds on the right. Pigtail catheter seen on the right. Cardiovascular: Regular rate and rhythm. No murmurs. No edema. Gastrointestinal: Normal bowel sounds, soft, nontender and nondistended. No hepatosplenomegaly noted. Musculoskeletal: No cyanosis. Patient is able to move all extremities. Skin: No rashes, warm dry and intact. Neurologic: No obvious focal neurological deficits seen. Psychiatric: Alert and oriented x3 with a euthymic affect. Results & Data Results & Data ([facility]) Vital Signs (Past 12 Hours) Vital Signs Temp Pulse Resp BP Pulse Ox O2 Del Method 11/30/22 07:34 36.7 C 99 H 16 125/77 94 Room Air 11/29/22 21:55 37.3 C 97 H 18 131/83 95 Room Air PG Care Time/CCT Total # of Minutes Spent Total Time Spent with Patient: Total time spent is greater than 50% in coordination of care (as documented) at patient's floor/unit and/or counseling patient: Coding Level of Care Code 55160 SUB INP/OBS CARE 3/50MIN Diagnoses Parapneumonic effusion J18.9; J91.8 Pneumonia J18.9 Laterality: right Lung location: lower lobe of lung Pneumonia type: due to unspecified organism Pleurisy R09.1 Dyspnea R06.00
[2022-11-30] MEDS ORDERED: Nursing to Pharmacy Communication SCH (09:45)
--- NOTE | 2022-11-30 09:53 | XRay Report ---
XR chest 1V portable CLINICAL HISTORY: follow up chest tube drainage COMPARISON STUDY: Chest CT November 28, 2022. Chest radiograph November 29, 2022. FINDINGS: Right basilar pleural catheter remains in place. There is a small right apical pneumothorax . Small right pleural effusion with right lower lung airspace opacity is noted. Mild left basilar opa city favors atelectasis. There is no evidence for pulmonary edema. IMPRESSION: Right basilar pleural catheter in place. Small right apical pneumothorax. Small right ple ural effusion with persistent right basilar airspace opacity. ACT 112: Negative or not required by law. Electronically signed by: Kobe Amezcua M.D. 11/30/2022 9:52 AM
[2022-11-30] MEDS: HYDROmorphone INJ 0.5 MG/0.5 ML SYR IV PRN (11:25)
[2022-11-30] MEDS: ALTEPLASE, RECOMBINANT 10 MG in SYRINGE 50 ML IPL SCH ×2 (11:31→22:44)
[2022-11-30] MEDS: DORNASE ALFA 5 ML in SYRINGE 25 ML IPL SCH (13:19)
--- NOTE | 2022-11-30 13:56 | Surgery Progress Note ---
Date of Service November 30, 2022 Assessment & Plan (1) Postoperative follow-up: Plan: pt is a 52 year-old female who is post-op Day 10 for appendectomy + 2 RAJIV drainage for perforated appendicitis, pt was re-admitted for hospital for right chest pain,pneumonia and right pleural effusion. pt is doing better, I pulled out middle RAJIV , regular diet, repeat labs in morning, OOB continue antibiotic will F/U, 11/30/2022 1:57 PM pt is doing better, I may pulled out other RAJIV tomorrow , OOB continue antibiotic will F/U, Admission and Anticipated Discharge Date Admission Date: November 28, 2022 Supervising Physician Co-Signing Physician Notes As per Galindo Maynard physician cable splicer assistant I talked to the patient late last evening after the answering service patient main at the patient had some issues When I talked her she is complaining significant abdominal pain rib pain chest pain that it started earlier in the day therefore I recommended her to come to the emergency room which she did and worked up showed mostly primary etiology of all discomfort seems to be pulmonary in nature (pleural effusion) and given the clinical presentation elevated white count likely empyema Examined the patient this morning still has occasional cough her abdomen soft the incision is healed well intraperitoneal drains serosanguineous nonpurulent drainage Pulmonary scheduled to see patient regarding the issues stated above Subjective Her shortness of breath and pleurisy has improved, but not resolved completely. She did have a better night sleeping yesterday and the night prior. She is currently saturating in the low 90s on room air. Approximately 400 mL drainage out of the chest tube since insertion. I did unhook the pigtail catheter from the Nahomy drain. I sterilely cleaned the drainage port and instilled 30 cc of sterile saline. I then reattached the Nahomy drain to the pigtail catheter and was able to achieve an increase in flow rate of drainage. Suspect there was some fibrin clogging the pigtail catheter. 11/30/2022 1:[address] Zacarias doing better, no significant abdominal pain, no fever, no diarrhea, RAJIV 25 ml/day, clear color. Physical Exam Constitutional: WD/WN, vitals as above Eyes: PERRL, conjunctivae normal, anicteric sclerae Neck: trachea midline, no thyromegaly Respiratory: normal respiratory effort, lungs clear to auscultation Cardiovascular: RRR, no murmur, no edema Gastrointestinal (Abdomen): NT, ND, RAJIV intact, BS +, Musculoskeletal: no cyanosis or clubbing, extremities motor strength 5/5 Neurologic: patellar DTR's 2+ bilat, sensation intact Psychiatric: A+Ox3, euthymic affect Results & Data ([facility]) Vital Signs (Past 12 Hours) Vital Signs Temp Pulse Resp BP Pulse Ox O2 Del Method 11/30/22 07:30 Room Air 11/30/22 07:34 36.7 C 99 H 16 125/77 94 Room Air Laboratory Results Abnormal lab results 11/29/22 11/30/22 11/30/22 Range/Units Unknown 05:32 05:32 RBC 3.67 L (4.20-5.40) M/uL Hgb 11.3 L (12.0-16.0) g/dl Hct 33.2 L (37.0-47.0) % MPV 9.1 L (9.4-12.4) fL Neut # (Auto) 7.58 H (1.40-6.50) K/uL Real # (Auto) 0.72 H (0.11-0.59) K/uL Chloride 111 H (98-107) mmol/L BUN 5 L (6-23) mg/dl BUN/Creatinine Ratio 8.1 L (10-20) Glucose 104 H (70-99(Fasting)) mg/dl Calcium 8.4 L (8.5-10.1) mg/dl AST 12 L (13-39) U/L Total Protein 5.8 L (6.0-8.3) gm/dl Albumin 3.0 L (3.4-5.0) gm/dl Pleural pH 7.11 L (7.3-7.4)
[2022-11-30] MEDS: ONDANSETRON INJ 2 MG/ML 2 ML VIAL IV PRN (16:56)
[2022-12-01] MEDS: DORNASE ALFA 5 ML in SYRINGE 25 ML IPL SCH ×2 (00:11→11:50)
[2022-12-01] MEDS: SODIUM CHLORIDE 0.9% 1000ML 1,000 ML IV SCH ×3 (02:21→17:58)
[2022-12-01] MEDS: HYDROmorphone INJ 1 MG/ML SYRINGE IV PRN ×2 (02:28→13:55)
[2022-12-01] MEDS: PIPERACILLIN/TAZOBACTAM 3.375 GM in DEXTROSE 5% 100 ML IV SCH ×3 (05:07→22:15)
[2022-12-01 07:55] LABS: Albumin Level 2.7 gm/dl (3.4-5.0); BUN Creatinine Ratio 6.5 (10-20); Bilirubin,Total 0.3 mg/dl (0.2-1.0); Calcium 7.9 mg/dl (8.5-10.1); Creatinine Clr Calc Pharmacy 114.8 ml/min; Est GFR (African American) 120.2 ml/min; Est GFR (Non-African American) 103.7 ml/min; Globulin 2.7 gm/dl (2.5-4.0); Magnesium 1.8 mg/dl (1.7-2.4); Potassium 3.8 mmol/L (3.5-5.1); Total Protein 5.4 gm/dl (6.0-8.3)
[2022-12-01] MEDS: FAMOTIDINE 20 MG TAB PO SCH (07:56)
[2022-12-01] MEDS: MULTIVITAMIN TAB PO SCH (08:54)
[2022-12-01] MEDS: PROPRANOLOL HCL LA 80 MG CAPCR PO SCH (08:54)
--- NOTE | 2022-12-01 10:00 | Surgery Progress Note ---
Date of Service December 01, 2022 Assessment & Plan (1) Postoperative follow-up: Plan: pt is a 52 year-old female who is post-op Day 10 for appendectomy + 2 RAJIV drainage for perforated appendicitis, pt was re-admitted for hospital for right chest pain,pneumonia and right pleural effusion. pt is doing better, I pulled out middle RAJIV , regular diet, repeat labs in morning, OOB continue antibiotic will F/U, 11/30/2022 1:57 PM pt is doing better, I may pulled out other RAJIV tomorrow , OOB continue antibiotic will F/U, 12/01/2022 9:59 AM pt is doing better, keep the RAJIV in, OOB continue antibiotic will F/U, Admission and Anticipated Discharge Date Admission Date: November 28, 2022 Supervising Physician Co-Signing Physician Notes As per Galindo Maynard physician assistant customer service manager I talked to the patient late last evening after the answering service patient main at the patient had some issues When I talked her she is complaining significant abdominal pain rib pain chest pain that it started earlier in the day therefore I recommended her to come to the emergency room which she did and worked up showed mostly primary etiology of all discomfort seems to be pulmonary in nature (pleural effusion) and given the clinical presentation elevated white count likely empyema Examined the patient this morning still has occasional cough her abdomen soft the incision is healed well intraperitoneal drains serosanguineous nonpurulent drainage Pulmonary scheduled to see patient regarding the issues stated above Subjective pt is improved but still has pain it is lessened. she still have Chest tube starting MIST protocol 11/30/22 12/01/2022 9:[address] Zacarias doing better, no abdominal pain no fever. RAJIV 10ml cloudy. Physical Exam Constitutional: WD/WN, vitals as above Eyes: PERRL, conjunctivae normal, anicteric sclerae Neck: trachea midline, no thyromegaly Respiratory: normal respiratory effort, lungs clear to auscultation Cardiovascular: RRR, no murmur, no edema Gastrointestinal (Abdomen): soft, NT, ND, all incision heal well, no redness, RAJIV intact, Musculoskeletal: no cyanosis or clubbing, extremities motor strength 5/5 Neurologic: patellar DTR's 2+ bilat, sensation intact Psychiatric: A+Ox3, euthymic affect Results & Data ([facility]) Vital Signs (Past 12 Hours) Vital Signs Temp Pulse Resp BP Pulse Ox O2 Del Method 12/01/22 08:15 Room Air 12/01/22 07:39 36.7 C 80 18 110/70 94 Room Air Laboratory Results Abnormal lab results 12/01/22 Range/Units 06:40 Chloride 109 H (98-107) mmol/L Anion Gap 2 L (3-11) BUN 4 L (6-23) mg/dl BUN/Creatinine Ratio 6.5 L (10-20) Glucose 108 H (70-99(Fasting)) mg/dl Calcium 7.9 L (8.5-10.1) mg/dl AST 11 L (13-39) U/L Total Protein 5.4 L (6.0-8.3) gm/dl Albumin 2.7 L (3.4-5.0) gm/dl
[2022-12-01] MEDS: HYDROmorphone INJ 0.5 MG/0.5 ML SYR IV PRN (10:04)
--- NOTE | 2022-12-01 10:21 | XRay Report ---
XR chest 1V portable CLINICAL HISTORY: Chest tube ? MIST 2 protocol COMPARISON STUDY: Chest CT November 28, 2022 and chest radiograph November 30, 2022. FINDINGS: Right basilar pleural pigtail catheter remains in place. A small right pneumothorax is nahomy lar to prior exam. Small right pleural effusion with right basilar opacity persists. Trace left pleur al effusion is noted with mild left basilar opacity. There is no evidence for pulmonary edema. Cardio mediastinal silhouette is stable. IMPRESSION: Right basilar pleural catheter in place. No change in a small right pneumothorax and small right pleu ral effusion with right basilar opacity. ACT 112: Negative or not required by law. Electronically signed by: Kobe Amezcua M.D. 12/01/2022 10:20 AM
[2022-12-01] MEDS: ALTEPLASE, RECOMBINANT 10 MG in SYRINGE 50 ML IPL SCH (10:30)
--- NOTE | 2022-12-01 13:07 | Pulmonology Progress Note ---
Date of Service December 01, 2022 Assessment & Plan (1) Parapneumonic effusion: (2) Pneumonia: Laterality: right Lung location: lower lobe of lung Pneumonia type: due to unspecified organism Qualified Code(s): J18.9 - Pneumonia, unspecified organism (3) Pleurisy: (4) Dyspnea: Plan Status post pigtail catheter on the right 11/29/2022. Status post treatment 3 of 6 for the mist2 protocol. The drainage appears to be increasingly serosanguineous. We will discontinue this protocol at this time. Repeat chest x-ray tomorrow and continue with drainage. We will remove drain once drainage iis less than 100 mL/day. Hypoxemia and dyspnea improving with drainage. Pleurisy also improved. Continue with broad-spectrum antibiotics. Leukocytosis has resolved. Cultures from pleural fluid negative to date. Cytology negative for malignancy. Neutrophils noted. Pain control per primary team. Thank you for the consultation. Please call with questions. Admission and Anticipated Discharge Date Admission Date: November 28, 2022 Subjective Patient complaining of soreness and chest pain around the insertion site of the pigtail catheter. Her breathing has improved. She denies any nausea or vomiting. No fevers. Review of Systems Review of Systems: All systems reviewed & are unremarkable except as noted in HPI & below Physical Exam Physical Exam: Constitutional: Patient appears to be of their stated age. Patient is in no apparent distress. Patient is well-developed. Moderate distress Eyes: Pupils are equal round and reactive to light. Conjunctivae are normal. Anicteric sclera. Ears nose, mouth and throat: Mallampati class 2. Normal posterior oropharynx. Uvula is midline. Neck: Trachea is midline. Visual inspection is normal. Respiratory: Pleural rub on the right. Diminished breath sounds on the right. Pigtail catheter seen on the right. Cardiovascular: Regular rate and rhythm. No murmurs. No edema. Gastrointestinal: Normal bowel sounds, soft, nontender and nondistended. No hepatosplenomegaly noted. Musculoskeletal: No cyanosis. Patient is able to move all extremities. Skin: No rashes, warm dry and intact. Neurologic: No obvious focal neurological deficits seen. Psychiatric: Alert and oriented x3 with a euthymic affect. Results & Data Results & Data ([facility]) Vital Signs (Past 12 Hours) Vital Signs Temp Pulse Resp BP Pulse Ox O2 Del Method 12/01/22 08:15 Room Air 12/01/22 07:39 36.7 C 80 18 110/70 94 Room Air PG Care Time/CCT Total # of Minutes Spent Total Time Spent with Patient: Total time spent is greater than 50% in coordination of care (as documented) at patient's floor/unit and/or counseling patient: Coding Level of Care Code 66577 SUB INP/OBS CARE 2/35MIN Diagnoses Parapneumonic effusion J18.9; J91.8 Pneumonia J18.9 Laterality: right Lung location: lower lobe of lung Pneumonia type: due to unspecified organism Pleurisy R09.1 Dyspnea R06.00
--- NOTE | 2022-12-01 17:43 | Hospitalist Progress Note ---
Date of Service December 01, 2022 Assessment & Plan (1) Pneumonia: Plan: Acute serious risk, exudative effusion, empyema Ct chest There is a small to moderate at least partially loculated right pleural effusion with right basilar consolidation. This could represent atelectasis and/or pneumonia. Clinical correleation suggests pneumonia Follow blood cultures, continue on [facility] pulmonology who performed thoracentesis MIST protocol 11/30/22 by pulmonary medicine discontinued on 12/01/2022 (2) Abdominal pain: Plan: Acute improving, moderate risk Surgery is removed one of the 2 drains. They are seeing her on a daily basis. Antibiotics continue clinically her abdominal exam is improved (3) History of migraine: Plan: Chronic stable patient propranolol and as needed sumatriptan as she is fearful her aunt migraine headaches will recur Plan Patient will be on chemoprophylaxis Admission and Anticipated Discharge Date Admission Date: November 28, 2022 Subjective Patient was seen during administration of her mist 2 protocol. Her discharge has become increasing serosanguineous and pulmonary medicine is discontinuing continue treatment of this having received 3 of 6 treatments. Pulmonary medicine recommends continuing chest tube drainage until she is less than 100 mL a day and output. Patient's pain control is appropriate for this however she does have significant pain when they are manipulating her chest tube. Overall otherwise she feels improved has lessening chest wall discomfort when the tube is not being manipulated has lessening dyspnea and no other complaints or problems at this time Physical Exam Physical Exam: Patient is awake alert and oriented she is in moderate distress from abdominal pain. Her cardiac exam regular without murmurs Her lung exam continues to show diminished breath sounds both bases due to splinting right bases more so. no pleural rubs chest tube in right ribs Her abdomen is bowel sounds present surgical wound in the right lower quadrant which is stapled in place there is other smaller wounds likely from the laparoscopic port which are sutured. She has 1 remaining drain abdominal; exam improved Her extremities are without edema her peripheral pulses are intact Results & Data Results & Data ([facility]) Vital Signs (Past 12 Hours) Vital Signs Temp Pulse Resp BP Pulse Ox Pulse Ox O2 Del Method 12/01/22 16:14 97 12/01/22 14:40 98.4 F 84 18 105/70 93 Room Air 12/01/22 08:15 Room Air 12/01/22 07:39 98.1 F 80 18 110/70 94 Room Air O2 Del Method 12/01/22 16:14 Room Air 12/01/22 14:40 12/01/22 08:15 12/01/22 07:39 Laboratory Results Reviewed PRP PG Care Time/CCT Total # of Minutes Spent Total Time Spent with Patient: Total time spent is greater than 50% in coordination of care (as documented) at patient's floor/unit and/or counseling patient: Coding Level of Care Code 09469 SUB INP/OBS CARE 235MIN Diagnoses Pneumonia J18.9 Laterality: right Lung location: lower lobe of lung Pneumonia type: due to unspecified organism Abdominal pain R10.31 Abdominal location: right lower quadrant History of migraine Z86.69 (1) Pneumonia Laterality: right Lung location: lower lobe of lung Pneumonia type: due to u nspecified organism Qualified Code(s): J18.9 - Pneumonia, unspecified organism (2) Abdominal pain Abdominal location: right lower quadrant Qualified Code(s): R10.31 - Right lower quadrant pain
[2022-12-01] MEDS: TOPIRAMATE 100 MG TAB PO SCH (22:17)
[2022-12-02] MEDS: SODIUM CHLORIDE 0.9% 1000ML 1,000 ML IV SCH ×3 (01:41→17:53)
[2022-12-02] MEDS: PIPERACILLIN/TAZOBACTAM 3.375 GM in DEXTROSE 5% 100 ML IV SCH ×3 (05:07→21:12)
[2022-12-02] MEDS: FAMOTIDINE 20 MG TAB PO SCH (07:38)
[2022-12-02] MEDS: PROPRANOLOL HCL LA 80 MG CAPCR PO SCH (08:19)
[2022-12-02] MEDS: MULTIVITAMIN TAB PO SCH (08:20)
[2022-12-02 08:24] LABS: Basophils # (auto) 0.04 K/uL (0-0.2); Basophils % (auto) 0.4 %; Eosinophils % (auto) 1.9 %; Hematocrit (blood only) 32.9 % (37.0-47.0); Immature Granulocytes # (auto) 0.07 K/uL (0.01-0.20); Immature Granulocytes % (auto) 0.7 %; Lymphocytes # (auto) 1.26 K/uL (1.2-3.4); Mean Corpuscular Hemoglobin 30.1 pg (25.0-34.0); Mean Corpuscular Hgb Conc 33.4 g/dL (32.0-36.0); Mean Corpuscular Volume 89.9 fL (80.0-100.0); Monocytes # (auto) 0.65 K/uL (0.11-0.59); Monocytes % (auto) 6.2 %; Neutrophils # (auto) 8.25 K/uL (1.40-6.50); Neutrophils % (auto) 78.8 %; Platelet Count 422 K/uL (130-400); RDW Coefficient of Variation 12.7 % (11.5-14.5); Red Blood Count 3.66 M/uL (4.20-5.40); White Blood Count 10.47 K/ul (4.8-10.8)
[2022-12-02 08:32] LABS: BUN Creatinine Ratio 4.9 (10-20); Calcium 8.1 mg/dl (8.5-10.1); Creatinine Clr Calc Pharmacy 116.7 ml/min; Est GFR (African American) 120.8 ml/min; Est GFR (Non-African American) 104.2 ml/min; Potassium 3.7 mmol/L (3.5-5.1)
--- NOTE | 2022-12-02 08:57 | Pulmonology Progress Note ---
Date of Service December 02, 2022 Assessment & Plan (1) Parapneumonic effusion: (2) Pneumonia: Laterality: right Lung location: lower lobe of lung Pneumonia type: due to unspecified organism Qualified Code(s): J18.9 - Pneumonia, unspecified organism (3) Pleurisy: (4) Dyspnea: Plan Status post pigtail catheter on the right 11/29/2022. Status post treatment 3 of 6 for the mist2 protocol. Due to the drainage appearing progressively serosanguineous, mist2 protocol was discontinued. We will proceed with CT chest today as the x-ray looks largely unchanged compared to yesterday and there appears to be a right lower lobe infiltrate versus atelectasis and persistent effusion. White count has resolved. Thus far pleural fluid cultures have been negative to date. Cytology negative for malignancy. We will remove drain once drainage is less than 100 mL/day. Hypoxemia and dyspnea improving with drainage. Pleurisy also improved. Continue with broad-spectrum antibiotics. Leukocytosis has resolved. Pain control per primary team. Thank you for the consultation. Please call with questions. Admission and Anticipated Discharge Date Admission Date: November 28, 2022 Subjective Patient seen and examined. She continues to have some mild pain around the pigtail catheter insertion site. Shortness of breath has largely improved compared to admission, but still mildly present with exertion. Denies any fevers, chills or night sweats. She has been constipated over the past 6 days, but is currently trying to have a bowel movement. Approximately 1.7 L of fluid out since chest tube insertion. Review of Systems Review of Systems: All systems reviewed & are unremarkable except as noted in HPI & below Physical Exam Physical Exam: Constitutional: Patient appears to be of their stated age. Patient is in no ap parent distress. Patient is well-developed. Moderate distress Eyes: Pupils are equal round and reactive to light. Conjunctivae are normal. Anicteric sclera. Ears nose, mouth and throat: Mallampati class 2. Normal posterior oropharynx. Uvula is midline. Neck: Trachea is midline. Visual inspection is normal. Respiratory: Pleural rub on the right. Diminished breath sounds on the right. Pigtail catheter seen on the right. Cardiovascular: Regular rate and rhythm. No murmurs. No edema. Gastrointestinal: Normal bowel sounds, soft, nontender and nondistended. No hepatosplenomegaly noted. Musculoskeletal: No cyanosis. Patient is able to move all extremities. Skin: No rashes, warm dry and intact. Neurologic: No obvious focal neurological deficits seen. Psychiatric: Alert and oriented x3 with a euthymic affect. Results & Data Results & Data ([facility]) Vital Signs (Past 12 Hours) Vital Signs Temp Pulse Resp BP Pulse Ox Pulse Ox O2 Del Method 12/02/22 08:14 36.7 C 85 18 121/79 93 Room Air 12/02/22 07:59 Room Air 12/02/22 07:59 96 12/01/22 23:22 37.0 C 94 H 18 127/74 94 Room Air 12/01/22 22:24 Room Air O2 Del Method 12/02/22 08:14 12/02/22 07:59 12/02/22 07:59 Room Air 12/01/22 23:22 12/01/22 22:24 PG Care Time/CCT Total # of Minutes Spent Total Time Spent with Patient: Total time spent is greater than 50% in coordination of care (as documented) at patient's floor/unit and/or counseling patient: Coding Level of Care Code 40747 SUB INP/OBS CARE 3/50MIN Diagnoses Parapneumonic effusion J18.9; J91.8 Pneumonia J18.9 Laterality: right Lung location: lower lobe of lung Pneumonia type: due to unspecified organism Pleurisy R09.1 Dyspnea R06.00
[2022-12-02] MEDS: HYDROmorphone INJ 1 MG/ML SYRINGE IV PRN ×2 (09:54→21:13)
--- NOTE | 2022-12-02 10:21 | XRay Report ---
XR chest 1V portable CLINICAL HISTORY: follow up chest tube drainage TECHNIQUE: Single frontal radiograph of the chest was obtained. Comparison: Comparison is made to chest radiograph 12/01/2022 FINDINGS: A right chest tube is again seen. The cardiomediastinal silhouette is normal. Lungs are underinflated but clear. There is a small right and possible trace left pleural effusion. No pneumothorax is seen. IMPRESSION: Small right pleural effusion is similar in size to prior exam. No evidence of pneumothorax. ACT 112: Negative or not required by law. Electronically signed by: Jc Camejo M.D. 12/02/2022 10:20 AM
--- NOTE | 2022-12-02 11:07 | CT Scan Report ---
CT chest diagnostic wo con CT DOSE: 346.44 mGy.cm HISTORY: follow up loculated pleural effusion TECHNIQUE: Multiaxial CT images of the chest were performed without contrast. A dose lowering techni que was utilized adhering to the principles of ALARA. COMPARISON: Chest CTA 11/28/2022. FINDINGS: There is a right lateral basilar pleural catheter which appears in good position. There is a tiny right pneumothorax. The small loculated right pleural effusion has slightly decreased in size. The loculated component within the right major fissure is not significantly changed. There is a new loculated component of the right pleural effusion posteriorly best seen on image 170 which measures 6 .0 x 3.2 cm. This may not communicate with the right-sided pleural catheter. Right lower lobe consoli dation persists and may represent atelectasis from the pleural effusion. A pneumonia could also have a similar appearance. A trace left pleural effusion has developed in the interval. Linear density at the basal left lower lobe are also unchanged and favor subsegmental atelectasis. The central airways are patent. No acute fractures. No suspicious lytic or blastic osseous lesions. Multiple subcentimete r mediastinal lymph nodes do not meet CT criteria for pathologic involvement. This remains unchanged. The heart is normal in size. No pericardial effusion. Limited views of the upper abdomen demonstrate a normal liver, spleen, and adrenal glands. Left posterior subcutaneous sebaceous cyst which measure s 3.1 cm remains stable. Normal caliber thoracic aorta. Normal esophagus. IMPRESSION: 1. A right basilar pleural catheter appears in good position. There is a tiny right pneumothorax. 2. The small loculated right pleural effusion has slightly decreased in size. The loculated component within the right major fissure is not significantly changed. There is a new loculated component of t he right pleural effusion posteriorly which measures 6.0 x 3.2 cm. This may not communicate with the right-sided pleural catheter. 3. Right lower lobe consolidation persists and favors atelectasis from the pleural effusion. A pneumo marino could also have a similar appearance. 4. A trace left pleural effusion has developed in the interval. Additional findings as described above. ACT 112: Negative or not required by law. Electronically signed by: Tray Spence M.D. 12/02/2022 11:06 AM
--- NOTE | 2022-12-02 12:07 | Surgery Progress Note ---
Date of Service December 02, 2022 Assessment & Plan (1) Postoperative follow-up: Plan: pt is a 52 year-old female who is post-op Day 10 for appendectomy + 2 RAJIV drainage for perforated appendicitis, pt was re-admitted for hospital for right chest pain,pneumonia and right pleural effusion. pt is doing better, I pulled out middle RAJIV , regular diet, repeat labs in morning, OOB continue antibiotic will F/U, 11/30/2022 1:57 PM pt is doing better, I may pulled out other RAJIV tomorrow , OOB continue antibiotic will F/U, 12/01/2022 9:59 AM pt is doing better, keep the RAJIV in, OOB continue antibiotic will F/U, 12/02/2022 12:09 PM pt is doing better, keep the RAJIV in, OOB continue antibiotic sign off today, F/U me next week 12/08 or 11/2022 for pull out RAJIV, please call with questions, Thanks, Admission and Anticipated Discharge Date Admission Date: November 28, 2022 Supervising Physician Co-Signing Physician Notes As per Galindo Maynard physician assistant professor of economics I talked to the patient late last evening after the answering service patient main at the patient had some issues When I talked her she is complaining significant abdominal pain rib pain chest pain that it started earlier in the day therefore I recommended her to come to the emergency room which she did and worked up showed mostly primary etiology of all discomfort seems to be pulmonary in nature (pleural effusion) and given the clinical presentation elevated white count likely empyema Examined the patient this morning still has occasional cough her abdomen soft the incision is healed well intraperitoneal drains serosanguineous nonpurulent drainage Pulmonary scheduled to see patient regarding the issues stated above Subjective Patient seen and examined. She continues to have some mild pain around the pigtail catheter insertion site. Shortness of breath has largely improved compared to admission, but still mildly present with exertion. Denies any fevers, chills or night sweats. She has been constipated over the past 6 days, but is currently trying to have a bowel movement. Approximately 1.7 L of fluid out since chest tube insertion. 12/02/2022 12:06PM Dr. Zacarias F/U S/P appendectomy with RAJIV for perforated appendicitis with abscess, POD 13, pt is dong fine, no fever, no abdominal pain, RAJIV 15 ml cloudy, Physical Exam Constitutional: WD/WN, vitals as above Eyes: PERRL, conjunctivae normal, anicteric sclerae Neck: trachea midline, no thyromegaly Respiratory: normal respiratory effort, lungs clear to auscultation Cardiovascular: RRR, no murmur, no edema Gastrointestinal (Abdomen): soft, NT, ND RAJIV intact, all incision heals well, no redness, Musculoskeletal: no cyanosis or clubbing, extremities motor strength 5/5 Neurologic: patellar DTR's 2+ bilat, sensation intact Psychiatric: A+Ox3, euthymic affect Results & Data ([facility]) Vital Signs (Past 12 Hours) Vital Signs Temp Pulse Resp BP Pulse Ox Pulse Ox O2 Del Method 12/02/22 08:14 36.7 C 85 18 121/79 93 Room Air 12/02/22 07:59 Room Air 12/02/22 07:59 96 O2 Del Method 12/02/22 08:14 12/02/22 07:59 12/02/22 07:59 Room Air Laboratory Results Abnormal lab results 12/02/22 12/02/22 Range/Units 06:53 08:02 RBC 3.66 L (4.20-5.40) M/uL Hgb 11.0 L (12.0-16.0) g/dl Hct 32.9 L (37.0-47.0) % Plt Count 422 H (130-400) K/uL MPV 9.0 L (9.4-12.4) fL Neut # (Auto) 8.25 H (1.40-6.50) K/uL [place] # (Auto) 0.65 H (0.11-0.59) K/uL Chloride 112 H (98-107) mmol/L BUN 3 L (6-23) mg/dl BUN/Creatinine Ratio 4.9 L (10-20) Glucose 111 H (70-99(Fasting)) mg/dl Calcium 8.1 L (8.5-10.1) mg/dl
--- NOTE | 2022-12-02 16:45 | Hospitalist Progress Note ---
Date of Service December 02, 2022 Assessment & Plan (1) Pneumonia: Plan: Acute serious risk, exudative effusion, empyema Ct chest There is a small to moderate at least partially loculated right pleural effusion with right basilar consolidation. This could represent atelectasis and/or pneumonia. Clinical correleation suggests pneumonia Follow blood cultures, continue on [facility] pulmonology who performed thoracentesis MIST protocol 11/30/22 by pulmonary medicine discontinued on 12/01/2022 CT scan shows loculated fluid. Asael reassess on 12/03. Decreased drainage on 12/02 (2) Abdominal pain: Plan: Acute improving, moderate risk Surgery is removed one of the 2 drains. They are seeing her on a daily basis. Antibiotics continue clinically her abdominal exam is improved (3) History of migraine: Plan: Chronic stable patient propranolol and as needed sumatriptan as she is fearful her aunt migraine headaches will recur Plan Patient will be on chemoprophylaxis Admission and Anticipated Discharge Date Admission Date: November 28, 2022 Subjective 52 yo female reports breathing well. She has no new complaints. She reports having a bowel movement this AM. Review of Systems Review of Systems: All systems reviewed & are unremarkable except as noted in HPI & below Physical Exam Physical Exam: Patient is awake alert and oriented Her cardiac exam regular without murmurs Her lung exam continues to show diminished breath sounds both bases due to splinting right bases more so. no pleural rubs chest tube in right ribs Her abdomen is bowel sounds present surgical wound in the right lower quadrant which is stapled in place there is other smaller wounds likely from the laparoscopic port which are sutured. She has 1 remaining drain abdominal; exam improved Her extremities are without edema her peripheral pulses are intact Results & Data Results & Data ([facility]) Vital Signs (Past 12 Hours) Vital Signs Temp Pulse Resp BP Pulse Ox Pulse Ox O2 Del Method 12/02/22 14:58 37.1 C 81 18 105/69 94 Room Air 12/02/22 08:14 36.7 C 85 18 121/79 93 Room Air 12/02/22 07:59 Room Air 12/02/22 07:59 96 O2 Del Method 12/02/22 14:58 12/02/22 08:14 12/02/22 07:59 12/02/22 07:59 Room Air PG Care Time/CCT Total # of Minutes Spent Total Time Spent with Patient: Total time spent is greater than 50% in coordination of care (as documented) at patient's floor/unit and/or counseling patient: Coding Level of Care Code 58219 SUB INP/OBS CARE MIN Diagnoses Pneumonia J18.9 Laterality: right Lung location: lower lobe of lung Pneumonia type: due to unspecified organism Abdominal pain R10.31 Abdominal location: right lower quadrant History of migraine Z86.69 (1) Pneumonia Laterality: right Lung location: lower lobe of lung Pneumonia type: due to unspecified organism Qualified Code(s): J18.9 - Pneumonia, unspecified organism (2) Abdominal pain Abdominal location: right lower quadrant Qualified Code(s): R10.31 - Right lower quadrant pain
[2022-12-02] MEDS: TOPIRAMATE 100 MG TAB PO SCH (21:13)
[2022-12-03] MEDS: PIPERACILLIN/TAZOBACTAM 3.375 GM in DEXTROSE 5% 100 ML IV SCH ×3 (05:25→19:33)
[2022-12-03] MEDS: SODIUM CHLORIDE 0.9% 1000ML 1,000 ML IV SCH ×3 (06:40→23:23)
[2022-12-03 06:51] LABS: Hemoglobin 11.2 g/dl (12.0-16.0); Mean Corpuscular Hemoglobin 30.5 pg (25.0-34.0); Mean Corpuscular Hgb Conc 33.9 g/dL (32.0-36.0); Mean Corpuscular Volume 89.9 fL (80.0-100.0); Platelet Count 439 K/uL (130-400); RDW Coefficient of Variation 12.6 % (11.5-14.5); RDW Standard Deviation 41.5 fL (36.4-46.3); Red Blood Count 3.67 M/uL (4.20-5.40); White Blood Count 10.93 K/ul (4.8-10.8)
[2022-12-03 07:10] LABS: BUN Creatinine Ratio 5.9 (10-20); C Reactive Protein 3.93 mg/dl (0-0.5); Calcium 8.1 mg/dl (8.5-10.1); Creatinine Clr Calc Pharmacy 104.7 ml/min; Est GFR (African American) 116.6 ml/min; Est GFR (Non-African American) 100.6 ml/min; Potassium 3.3 mmol/L (3.5-5.1)
[2022-12-03] MEDS: FAMOTIDINE 20 MG TAB PO SCH (09:04)
[2022-12-03] MEDS: MULTIVITAMIN TAB PO SCH (09:04)
[2022-12-03] MEDS: PROPRANOLOL HCL LA 80 MG CAPCR PO SCH (09:04)
--- NOTE | 2022-12-03 09:28 | XRay Report ---
SINGLE VIEW CHEST CLINICAL HISTORY: Chest tube. FINDINGS: An AP, portable, upright chest radiograph is compared to chest x-ray and chest CT dated 11/11. The heart is top normal for projection. A chest tube at the right lung base is similar to pre vious. A trace right apical pneumothorax persists. There is a small residual right pleural effusion w ith right basilar consolidation. Loculated fluid is again seen along the right major fissure. Trace p leural fluid and atelectasis is seen at the left lung base. The bony thorax is grossly intact. IMPRESSION: 1. A chest tube is again seen in the right lung base. There is trace persistent right apical pneumoth orax. 2. Small residual right pleural effusion with right basilar consolidation. There is also loculated fl uid along the right major fissure. 3. Trace left pleural effusion and basilar atelectasis. ACT 112: Negative or not required by law. Electronically signed by: Ravinder Mora M.D. 12/03/2022 9:27 AM
[2022-12-03] MEDS: HYDROmorphone INJ 1 MG/ML SYRINGE IV PRN ×3 (12:19→21:10)
--- NOTE | 2022-12-03 13:44 | Procedure Note ---
Procedure Note Date of Service December 03, 2022 Note PIGTAIL CATHETER PLACEMENT NOTE: Procedure: Pigtail Catheter Chest Tube Placement Indication: Loculated pleural effusion Anesthesia: 10 mL lidocaine 1% Written consent was obtained and placed on the chart. Timeout was done prior to the procedure. Prior to procedure, chest x-ray films were reviewed by myself and demonstrated loculated effusion. A time-out was completed verifying correct patient, procedure, site, positioning, and implant(s) or special equipment if applicable. Utilizing bedside ultrasound, chest wall was evaluated for location for optimal chest tube placement. Location between the 4 and 5 ribs were marked on the skin using gentle pressure. The right sided chest wall was prepped with chlorhexidine and draped in the typical sterile fashion. 10 mL of 1% Lidocaine without epinephrine was used to anesthetize the skin down to the dorsal surface of the 4 rib. Serosanguineous fluid return confirmed entry into the pleural space. Lidocaine was injected into the pleural space for increased anesthetization. I ntroducer needle on syringe was inserted in perpendicular fashion taking care to ride just above the dorsal surface of the fifth rib. Entry into the pleural space was heralded by serosanguineous return into the syringe while under gentle aspiration. Guide wire was advanced into the pleural space without resistance and the introducer needle was subsequently removed. Scalpel was used to make small incision of the superficial tissue, parallel to the direction of the rib anatomy. Dilator was advanced uneventfully over the guide wire into the pleural space. 14 Haitian Pigtail Catheter was inserted into the pleural space. Inner introducer and guide wire were removed. Drain was immediately connected to pre- prepared VALENTIN pleur-evac system. Pigtail was sutured securely in place and sterile dressing was applied. Chest tube was placed to -20 cmH2O suction. Patient tolerated procedure well. Blood Loss: Minimal Complications: None Postprocedure chest x-ray is pending. Coding
--- NOTE | 2022-12-03 13:54 | Pulmonology Progress Note ---
Date of Service December 03, 2022 Assessment & Plan (1) Parapneumonic effusion: (2) Pneumonia: Laterality: right Lung location: lower lobe of lung Pneumonia type: due to unspecified organism Qualified Code(s): J18.9 - Pneumonia, unspecified organism (3) Pleurisy: (4) Dyspnea: Plan Status post right lateral 14 Armenian pigtail catheter on the right 11/29/2022. Completed 3 out of 6 alteplase/dornase installations. Instillation halted due to increasingly sanguinous appearing fluid. Status post medially placed 14 Armenian pigtail catheter 12/03/2022 due to loculated effusion. Postprocedure chest x-ray pending. We will likely proceed with alteplase and dornase through the medially placed catheter if everything looks okay on the chest x-ray. Pain control per primary team. Thank you for the consultation. Please call with questions. Admission and Anticipated Discharge Date Admission Date: November 28, 2022 Subjective Patient continues to have mild pleurisy. Breathing has improved. Cough is minimal. Her right arm is hurting quite a bit and right chest from the pigtail catheter. I reviewed the CT chest with patient from yesterday. He does appear to be a medial basilar loculated pocket of fluid that is not properly draining with the first catheter. Review of Systems Review of Systems: All systems reviewed & are unremarkable except as noted in HPI & below Physical Exam Physical Exam: Constitutional: Patient appears to be of their stated age. Patient is in no apparent distress. Patient is well-developed. Moderate distress Eyes: Pupils are equal round and reactive to light. Conjunctivae are normal. Anicteric sclera. Ears nose, mouth and throat: Mallampati class 2. Normal posterior oropharynx. Uvula is midline. Neck: Trachea is midline. Visual inspection is normal. Respiratory: Pleural rub on the right. Diminished breath sounds on the right. Pigtail catheter seen on the right. Cardiovascular: Regular rate and rhythm. No murmurs. No edema. Gastrointestinal: Normal bowel sounds, soft, nontender and nondistended. No hepatosplenomegaly noted. Musculoskeletal: No cyanosis. Patient is able to move all extremities. Skin: No rashes, warm dry and intact. Neurologic: No obvious focal neurological deficits seen. Psychiatric: Alert and oriented x3 with a euthymic affect. Results & Data Results & Data ([facility]) Vital Signs (Past 12 Hours) Vital Signs Temp Pulse Resp BP Pulse Ox Pulse Ox O2 Del Method 12/03/22 07:00 95 12/03/22 07:50 Room Air 12/03/22 07:47 36.6 C 81 18 110/71 95 Room Air O2 Del Method 12/03/22 07:00 Room Air 12/03/22 07:50 12/03/22 07:47 PG Care Time/CCT Total # of Minutes Spent Total Time Spent with Patient: Total time spent is greater than 50% in coordination of care (as documented) at patient's floor/unit and/or counseling patient: Coding Level of Care Code 31913 SUB INP/OBS CARE 3/50MIN Diagnoses Parapneumonic effusion J18.9; J91.8 Pneumonia J18.9 Laterality: right Lung location: lower lobe of lung Pneumonia type: due to unspecified organism Pleurisy R09.1 Dyspnea R06.00
--- NOTE | 2022-12-03 13:58 | XRay Report ---
SINGLE VIEW CHEST CLINICAL HISTORY: Second chest tube placement. FINDINGS: An AP, portable, upright chest radiograph is compared to chest x-ray and chest CT dated 11/11. The heart is top normal for projection. There are now 2 chest tubes at the right lung base. N o residual pneumothorax is seen. There is a small residual right pleural effusion with right basilar consolidation. Loculated fluid along the right major fissure has decreased from previous. Trace pleur al fluid and atelectasis is seen at the left lung base. The bony thorax is grossly intact. IMPRESSION: 1. A second chest tube has been placed at the right lung base. No residual pneumothorax is identified . 2. Small residual right pleural effusion with right basilar consolidation. Fluid along the right merced r fissure has decreased. 3. Trace left pleural effusion and basilar atelectasis. ACT 112: Negative or not required by law. Electronically signed by: Ravinder Mora M.D. 12/03/2022 1:57 PM
[2022-12-03 15:24] LABS: Glucose Peritoneal Fluid 87 mg/dl; LDH Peritoneal Fluid 1030 U/L
[2022-12-03 16:18] LABS: Appearance Pleural Fluid Bloody; Color Pleural Fluid Red; Eosinophils, Fluid 2 %; Lymphocytes, Fluid 46 %; Mono,Macrophage,Mesothelial 16 %; Neutrophils, Fluid 36 %; RBC Pleural Fluid Auto 117000 /uL; Source Pleural Fluid Right Lung; WBC Pleural Fluid Auto 430 /uL
[2022-12-03] MEDS: ALTEPLASE, RECOMBINANT 10 MG in SYRINGE 50 ML IPL SCH (17:39)
[2022-12-03] MEDS: DORNASE ALFA 5 ML in SYRINGE 25 ML IPL SCH (19:21)
[2022-12-03] MEDS: TOPIRAMATE 100 MG TAB PO SCH (19:34)
--- NOTE | 2022-12-03 22:25 | Hospitalist Progress Note ---
Date of Service December 03, 2022 Assessment & Plan (1) Pneumonia: Plan: Acute serious risk, exudative effusion, empyema Ct chest There is a small to moderate at least partially loculated right pleural effusion with right basilar consolidation. This could represent atelectasis and/or pneumonia. Clinical correleation suggests pneumonia Follow blood cultures, continue on [facility] Goodman pulmonology who performed thoracentesis MIST protocol 11/30/22 by pulmonary medicine discontinued on 12/01/2022 CT scan shows loculated fluid. second chest tube was placed. Decreased drainage on 12/03 (2) Abdominal pain: Plan: Acute improving, moderate risk Surgery is removed one of the 2 drains. They are seeing her on a daily basis. Antibiotics continue clinically her abdominal exam is improved (3) History of migraine: Plan: Chronic stable patient propranolol and as needed sumatriptan as she is fearful her aunt migraine headaches will recur Plan Patient will be on chemoprophylaxis Admission and Anticipated Discharge Date Admission Date: November 28, 2022 Subjective 52 yo female reports breathing well. She tolerated the second chest tube placement. Review of Systems Review of Systems: All systems reviewed & are unremarkable except as noted in HPI & below Physical Exam Physical Exam: Patient is awake alert and oriented Her cardiac exam regular without murmurs Her lung exam continues to show diminished breath sounds both bases due to splinting right bases more so. no pleural rubs. 2 chest tubes are now in place Her abdomen is bowel sounds present surgical wound in the right lower quadrant which is stapled in place there is other smaller wounds likely from the laparoscopic port which are sutured. exam improved Her extremities are without edema her peripheral pulses are intact Results & Data Results & Data ([facility]) Vital Signs (Past 12 Hours) Vital Signs Temp Pulse Resp BP Pulse Ox O2 Del Method O2 Del Method 12/03/22 20:49 Room Air 12/03/22 13:35 Room Air 12/03/22 15:39 36.8 C 81 18 118/76 96 Room Air PG Care Time/CCT Total # of Minutes Spent Total Time Spent with Patient: Total time spent is greater than 50% in coordination of care (as documented) at patient's floor/unit and/or counseling patient: Coding Level of Care Code 74649 SUB INP/OBS CARE MIN Diagnoses Pneumonia J18.9 Laterality: right Lung location: lower lobe of lung Pneumonia type: due to unspecified organism Abdominal pain R10.31 Abdominal location: right lower quadrant History of migraine Z86.69 (1) Pneumonia Laterality: right Lung location: lower lobe of lung Pneumonia type: due to unspecified organism Qualified Code(s): J18.9 - Pneumonia, unspecified organism (2) Abdominal pain Abdominal location: right lower quadrant Qualified Code(s): R10.31 - Right lower quadrant pain
[2022-12-04] MEDS: HYDROmorphone INJ 1 MG/ML SYRINGE IV PRN ×4 (01:02→19:43)
[2022-12-04] MEDS: SODIUM CHLORIDE 0.9% 1000ML 1,000 ML IV SCH ×3 (02:57→23:39)
[2022-12-04] MEDS: PIPERACILLIN/TAZOBACTAM 3.375 GM in DEXTROSE 5% 100 ML IV SCH ×3 (04:44→19:33)
[2022-12-04] MEDS: ALTEPLASE, RECOMBINANT 10 MG in SYRINGE 50 ML IPL SCH ×3 (04:45→18:58)
[2022-12-04] MEDS: DORNASE ALFA 5 ML in SYRINGE 25 ML IPL SCH ×2 (05:48→18:57)
--- NOTE | 2022-12-04 07:50 | XRay Report ---
XR chest 1V portable CLINICAL HISTORY: Chest tube ? MIST 2 protocol COMPARISON STUDY: Chest CT December 02, 2022. Chest radiograph December 03, 2022. FINDINGS: Two right basilar pleural catheters remain in place. Small right pleural effusion with righ t basilar opacity persists. There may be a trace right apical pneumothorax. Linear left basilar opaci ty represents atelectasis. No evidence for pulmonary edema. IMPRESSION: No change in position of 2 right basilar pleural catheters. Small right pleural effusion with right b asilar opacity and possible trace right apical pneumothorax. ACT 112: Negative or not required by law. Electronically signed by: Kobe Amezcua M.D. 12/04/2022 7:49 AM
[2022-12-04] MEDS: MULTIVITAMIN TAB PO SCH (08:25)
[2022-12-04] MEDS: FAMOTIDINE 20 MG TAB PO SCH (08:25)
[2022-12-04] MEDS: PROPRANOLOL HCL LA 80 MG CAPCR PO SCH (08:25)
--- NOTE | 2022-12-04 09:45 | Pulmonology Progress Note ---
Date of Service December 04, 2022 Assessment & Plan (1) Parapneumonic effusion: (2) Pneumonia: Laterality: right Lung location: lower lobe of lung Pneumonia type: due to unspecified organism Qualified Code(s): J18.9 - Pneumonia, unspecified organism (3) Pleurisy: (4) Dyspnea: Plan Status post right lateral 14 [place] pigtail catheter on the right 11/29/2022. Completed 3 out of 6 alteplase/dornase installations. Instillation halted due to increasingly sanguinous appearing fluid. It appears that there has been more output from the lateral drain. Drainage has been poorly marked by nursing staff and it is unclear. I have asked them to place a new [place] and to clearly marked the drainage amounts and times.. Status post medially placed 14 [place] pigtail catheter 12/03/2022 due to loculated effusion. Alteplase and dornase instillations began the evening of 12/03/2022. Approximately 40 mL out in the [place] Repeat chest x-ray today appears to be largely stable with a stable right pleural effusion and infiltrate. We will consider removal of the lateral chest tube today if drainage is minimal. Pain control per primary team. Discussed with bedside RN and hospitalist service. Thank you for the consultation. Please call with questions. Admission and Anticipated Discharge Date Admission Date: November 28, 2022 Subjective Patient has soreness from both chest tube insertion sites. Breathing is reasonable. Minimal cough. Activity level has been low. Appetite poor. Review of Systems Review of Systems: All systems reviewed & are unremarkable except as noted in HPI & below Physical Exam Physical Exam: Constitutional: Patient appears to be of their stated age. Patient is in no apparent distress. Patient is well-developed. Moderate distress Eyes: Pupils are equal round and reactive to light. Conjunctivae are normal. A nicteric sclera. Ears nose, mouth and throat: Mallampati class 2. Normal posterior oropharynx. Uvula is midline. Neck: Trachea is midline. Visual inspection is normal. Respiratory: Pleural rub on the right. Diminished breath sounds on the right. Pigtail catheter seen on the right. Cardiovascular: Regular rate and rhythm. No murmurs. No edema. Gastrointestinal: Normal bowel sounds, soft, nontender and nondistended. No hepatosplenomegaly noted. Musculoskeletal: No cyanosis. Patient is able to move all extremities. Skin: No rashes, warm dry and intact. Neurologic: No obvious focal neurological deficits seen. Psychiatric: Alert and oriented x3 with a euthymic affect. Results & Data Results & Data ([facility]) Vital Signs (Past 12 Hours) Vital Signs Temp Pulse Resp BP Pulse Ox O2 Del Method 12/04/22 07:46 36.9 C 84 18 100/68 93 Room Air 12/03/22 22:37 36.8 C 82 16 113/75 94 Room Air PG Care Time/CCT Total # of Minutes Spent Total Time Spent with Patient: Total time spent is greater than 50% in coordination of care (as documented) at patient's floor/unit and/or counseling patient: Coding Level of Care Code 23785 SUB INP/OBS CARE 3/50MIN Diagnoses Parapneumonic effusion J18.9; J91.8 Pneumonia J18.9 Laterality: right Lung location: lower lobe of lung Pneumonia type: due to unspecified organism Pleurisy R09.1 Dyspnea R06.00
--- NOTE | 2022-12-04 11:06 | Procedure Note ---
Procedure Note Date of Service December 04, 2022 Note The right lateral chest tube was evaluated. I flushed it with saline and minimal fluid came out. I took down the dressing. I removed the suture. The catheter was slowly removed upon exhalation. No significant bleeding was encountered. An occlusive dressings was placed over the incision site. The pigtail catheter appears to be intact. Patient denies any discomfort. The medial chest tube remains in place and it has drained approximately 300 mL of serosanguineous appearing fluid. Coding CPT Codes Pulmonary/Thoracic - Pulmonary and Thoracic: 38094 Remove lung catheter ([id number]) [facility] [place] Procedure Codes (Charges) Pulmonary/Thoracic Procedure 1: Pulmonary and Thoracic: 75686 Remove lung catheter
--- NOTE | 2022-12-04 11:08 | Hospitalist Progress Note ---
Date of Service December 04, 2022 Assessment & Plan (1) Pneumonia: Plan: Acute serious risk, exudative effusion, empyema Ct chest There is a small to moderate at least partially loculated right pleural effusion with right basilar consolidation. This could represent atelectasis and/or pneumonia. Clinical correleation suggests pneumonia Follow blood cultures, continue on Carter Goodman pulmonology who performed thoracentesis MIST protocol 11/30/22 by pulmonary medicine discontinued on 12/01/2022 CT scan shows loculated fluid. second chest tube was placed. Lateral chest tube was removed on 12/04 will likely remove the medial chest tube on 12/05 (2) Abdominal pain: Plan: Acute improving, moderate risk Surgery is removed one of the 2 drains. They are seeing her on a daily basis. Antibiotics continue clinically her abdominal exam is improved Patient continues to have RAJIV drain and this will be removed in the outpatient setting depending on day of discharge. (3) History of migraine: Plan: Chronic stable patient propranolol and as needed sumatriptan as she is fearful her aunt migraine headaches will recur Plan Patient will be on chemoprophylaxis Admission and Anticipated Discharge Date Admission Date: November 28, 2022 Subjective 52 yo female reports feeling uplifted after one of the chest tubes were removed. She reports breathing well. She also reports her diarrhea has improved, and she had one small loose BM. Review of Systems Review of Systems: All systems reviewed & are unremarkable except as noted in HPI & below Physical Exam Physical Exam: Patient is awake alert and oriented Her cardiac exam regular without murmurs Her lung exam continues to show diminished breath sounds both bases due to splinting right bases more so. no pleural rubs. 2 chest tubes are now in place Her abdomen is bowel sounds present surgical wound in the right lower quadrant which is stapled in place there is other smaller wounds likely from the laparoscopic port which are sutured. exam improved Her extremities are without edema her peripheral pulses are intact Results & Data Results & Data ([facility]) Vital Signs (Past 12 Hours) Vital Signs Temp Pulse Resp BP Pulse Ox O2 Del Method 12/04/22 07:46 36.9 C 84 18 100/68 93 Room Air PG Care Time/CCT Total # of Minutes Spent Total Time Spent with Patient: Total time spent is greater than 50% in coordination of care (as documented) at patient's floor/unit and/or counseling patient: Coding Level of Care Code 43943 SUB INP/OBS CARE 35MIN Diagnoses Pneumonia J18.9 Laterality: right Lung location: lower lobe of lung Pneumonia type: due to unspecified organism Abdominal pain R10.31 Abdominal location: right lower quadrant History of migraine Z86.69 (1) Pneumonia Laterality: right Lung location: lower lobe of lung Pneumonia type: due to unspecified organism Qualified Code(s): J18.9 - Pneumonia, unspecified organism (2) Abdominal pain Abdominal location: right lower quadrant Qualified Code(s): R10.31 - Right lower quadrant pain
[2022-12-04] MEDS: SUMAtriptan succinate 100 MG TAB PO PRN (12:56)
[2022-12-04] MEDS: TOPIRAMATE 100 MG TAB PO SCH (19:39)
[2022-12-05] MEDS: SODIUM CHLORIDE 0.9% 1000ML 1,000 ML IV SCH (04:49)
[2022-12-05] MEDS: PIPERACILLIN/TAZOBACTAM 3.375 GM in DEXTROSE 5% 100 ML IV SCH ×2 (04:49→11:47)
[2022-12-05] MEDS: DORNASE ALFA 5 ML in SYRINGE 25 ML IPL SCH (05:31)
[2022-12-05] MEDS: ALTEPLASE, RECOMBINANT 10 MG in SYRINGE 50 ML IPL SCH (05:31)
[2022-12-05 06:40] LABS: Hemoglobin 11.3 g/dl (12.0-16.0); Mean Corpuscular Hemoglobin 30.7 pg (25.0-34.0); Mean Corpuscular Hgb Conc 34.2 g/dL (32.0-36.0); Mean Corpuscular Volume 89.7 fL (80.0-100.0); Platelet Count 430 K/uL (130-400); RDW Coefficient of Variation 12.6 % (11.5-14.5); RDW Standard Deviation 41.7 fL (36.4-46.3); Red Blood Count 3.68 M/uL (4.20-5.40); White Blood Count 7.64 K/ul (4.8-10.8)
[2022-12-05 07:03] LABS: Calcium 8.5 mg/dl (8.5-10.1); Potassium 3.4 mmol/L (3.5-5.1)
[2022-12-05 07:08] LABS: BUN Creatinine Ratio 7.4 (10-20); C Reactive Protein 4.91 mg/dl (0-0.5); Creatinine Clr Calc Pharmacy 104.7 ml/min; Est GFR (African American) 116.6 ml/min; Est GFR (Non-African American) 100.6 ml/min
--- NOTE | 2022-12-05 07:32 | XRay Report ---
XR chest 1V portable CLINICAL HISTORY: Chest tube ? MIST 2 protocol COMPARISON STUDY: Chest CT December 02, 2022. Chest radiograph December 04, 2022. FINDINGS: Medial basilar pleural catheter remains in place. Lateral catheter has been removed. There may be a small amount of pleural gas adjacent to the pleural catheter. There is no definite pneumotho rax. Small residual right pleural effusion with right basilar opacity is again noted. There is a trac e left pleural effusion with minimal left basilar opacity. There is no evidence for pulmonary edema. Lung volumes are again noted. Cardiomediastinal silhouette is stable. IMPRESSION: Interval removal of one of the 2 right basilar pleural catheters. No definite pneumothorax. Small rig ht pleural effusion with right basilar opacity. Possible small amount of pleural gas adjacent to the pleural catheter. ACT 112: Negative or not required by law. Electronically signed by: Kobe Amezcua M.D. 12/05/2022 7:30 AM
[2022-12-05] MEDS: PROPRANOLOL HCL LA 80 MG CAPCR PO SCH (09:00)
[2022-12-05] MEDS: MULTIVITAMIN TAB PO SCH (09:00)
[2022-12-05] MEDS: FAMOTIDINE 20 MG TAB PO SCH (09:01)
--- NOTE | 2022-12-05 10:26 | Pulmonology Progress Note ---
Date of Service December 05, 2022 Assessment & Plan (1) Parapneumonic effusion: (2) Pneumonia: Laterality: right Lung location: lower lobe of lung Pneumonia type: due to unspecified organism Qualified Code(s): J18.9 - Pneumonia, unspecified organism (3) Pleurisy: (4) Dyspnea: Plan Status post right lateral 14 [place] pigtail catheter on the right 11/29/2022. Completed 3 out of 6 alteplase/dornase installations. Instillation halted due to increasingly sanguinous appearing fluid. Approximately 2 L out from this chest tube. It was removed 12/04/2022 Status post medially placed 14 [place] pigtail catheter 12/03/2022 due to loculated effusion. Alteplase and dornase instillations began the evening of 12/03/2022. Approximately 250 mL output total. I removed the pigtail catheter today due to malpositioning. Repeat chest x-ray with some suggestion of pleural gas likely due to malpositioning of the tube. Tube removed. I think she is stable to be discharged from pulmonary perspective at this time with a repeat chest x-ray in 4 weeks and follow-up with me in the clinic. Admission and Anticipated Discharge Date Admission Date: November 28, 2022 Subjective Patient overall feeling better. Able to get out of bed with assistance. Has significant chest pain around the medial catheter insertion site. Alteplase instillation was attempted last evening, but there was drainage around the catheter site and only 5 mL was injected. I evaluated the pigtail catheter appears to be coiled in the subcutaneous tissue. It was removed at bedside without issue. Review of Systems Review of Systems: All systems reviewed & are unremarkable except as noted in HPI & below Physical Exam Physical Exam: Constitutional: Patient appears to be of their stated age. Patient is in no apparent distress. Patient is well-developed. Moderate distress Eyes: Pupils are equal round and reactive to light. Conjunctivae are normal. Anicteric sclera. Ears nose, mouth and throat: Mallampati class 2. Normal posterior oropharynx. Uvula is midline. Neck: Trachea is midline. Visual inspection is normal. Respiratory: Pleural rub on the right. Diminished breath sounds on the right. Pigtail catheter seen on the right. Cardiovascular: Regular rate and rhythm. No murmurs. No edema. Gastrointestinal: Normal bowel sounds, soft, nontender and nondistended. No hepatosplenomegaly noted. Musculoskeletal: No cyanosis. Patient is able to move all extremities. Skin: No rashes, warm dry and intact. Neurologic: No obvious focal neurological deficits seen. Psychiatric: Alert and oriented x3 with a euthymic affect. Results & Data Results & Data ([facility]) Vital Signs (Past 12 Hours) Vital Signs Temp Pulse Resp BP Pulse Ox Pulse Ox O2 Del Method 12/05/22 07:45 Room Air 12/05/22 07:35 37.3 C 80 18 111/73 94 Room Air 12/05/22 00:32 96 O2 Del Method 12/05/22 07:45 12/05/22 07:35 12/05/22 00:32 Room Air PG Care Time/CCT Total # of Minutes Spent Total Time Spent with Patient: Total time spent is greater than 50% in coordination of care (as documented) at patient's floor/unit and/or counseling patient: Coding Level of Care Code 18997 SUB INP/OBS CARE 2/35MIN Diagnoses Parapneumonic effusion J18.9; J91.8 Pneumonia J18.9 Laterality: right Lung location: lower lobe of lung Pneumonia type: due to unspecified organism Pleurisy R09.1 Dyspnea R06.00
--- NOTE | 2022-12-05 10:28 | Procedure Note ---
Procedure Note Date of Service December 05, 2022 Note The right medial chest tube was evaluated. I flushed it with saline and there appeared to be leakage around the insertion site associated with pain. I took down the dressing. I removed the suture. The catheter was slowly removed upon exhalation. No significant bleeding was encountered. An occlusive dressings was placed over the incision site. The pigtail catheter appears to be intact. Patient denies any discomfort aside from mild tenderness to palpation around the insertion site. Coding CPT Codes Pulmonary/Thoracic - Pulmonary and Thoracic: 99796 Remove lung catheter ([id number]) [facility] [place] [facility] [place] Procedure Codes (Charges) Pulmonary/Thoracic Procedure 1: Pulmonary and Thoracic: 71914 Remove lung catheter
[2022-12-05] MEDS ORDERED: POTASSIUM CHLORIDE CRTAB 20 MEQ TABCR PO SCH (14:00)
--- NOTE | 2022-12-05 15:04 | Discharge Summary ---
Date of Service December 05, 2022 Admission HPI Per Admitting Provider 52-year-old female who presents to the emergency department with increased right-sided chest and abdomen pain. Patient was discharged from [facility] on November 24 after a perforated appendectomy with open procedure and residual drains. Patient was discharged with an additional 1 week course of Cipro Flagyl after being on Zosyn while hospitalized. Patient states that she had been persistently painful since discharge but the pain was intensifying mostly on the right lower chest right upper abdomen which prompted her to be reevaluated the emergency department. In the emergency department the patient is found to have leukocytosis of 18,000, chest CT abdomen pelvis does not show PE but does show loculated right basilar pleural effusion with associated infiltrate and inflammatory changes surrounding the appendectomy site with persistent drains in place which have been draining serous discharge Patient had blood cultures obtained, surgical evaluation in the emergency department felt this is more of a medical admission, and patient was initiated on Zosyn therapy which will be continued as along with pain control n.p.o. status and parenteral hydration Consideration of pulmonary consultation for loculated pleural effusion in case this would be considered empyema. Principal Diagnosis Pneumonia with possible empyema Discharge Exam Patient is awake alert and oriented Her cardiac exam regular without murmurs Her lung exam continues to show diminished breath sounds both bases due to splinting right bases more so. no pleural rubs. chest tubes removed. Her abdomen is bowel sounds present surgical wound in the right lower quadrant which is stapled in place there is other smaller wounds likely from the laparoscopic port which are sutured. exam improved Her extremities are without edema her peripheral pulses are intact Discharge Data Allergies Allergy/AdvReac Type Severity Reaction Status Date / Time No Known Drug Allergies Allergy Verified 11/28/22 06:42 Consultations 11/28/22 08:11 Consult General Surgery Routine ED Decision to Admit Stat 11/29/22 11:54 Consult Pulmonology Routine Ordered Studies 11/28/22 05:01 CT Abd and Pelvis [CT abd pelvis IV con only] Stat CT angio chest PE protocol Stat 11/29/22 13:15 sono, invasive monitoring [US point of care ultrasound] Urgent 12/02/22 08:54 CT chest diagnostic wo con Routine 12/03/22 11:57 US point of care ultrasound Urgent Hospital Course (1) Pneumonia: Acute serious risk, exudative effusion, empyema Ct chest There is a small to moderate at least partially loculated right pleural effusion with right basilar consolidation. This could represent atelectasis and/or pneumonia. Clinical correleation suggests pneumonia Follow blood cultures, continue on Carter Goodman pulmonology who performed thoracentesis MIST protocol 11/30/22 by pulmonary medicine discontinued on 12/01/2022 CT scan shows loculated fluid. second chest tube was placed. Lateral chest tube was removed on 12/04 removed the medial chest tube on 12/05 will obtain repeat chest x ray in 4 weeks. will continue cipro and flagyl at discharge. Patient will complete a total of 2 weeks of antibiotics. (2) Abdominal pain: Acute improving, moderate risk Surgery is removed one of the 2 drains. They are seeing her on a daily basis. Antibiotics continue clinically her abdominal exam is improved Patient continues to have RAJIV drain and this will be removed in the outpatient setting d. (3) History of migraine: Chronic stable patient propranolol and as needed sumatriptan as she is fearful her aunt migraine headaches will recur Total Time Total Time Spent Total Time Spent (In Minutes): 32 Discharge Plan Discharge Items Patient Disposition: Home - Self-Care Reason For Visit: ABDOMINAL PAIN, PNEUMONIA Discharge Diagnosis: Pneumonia Activity: Resume your previous activity Non-emergency contact: Primary Care Provider Call non-emergency contact if: you have any medication questions Follow-up/Referrals: Jose Disla MD [Primary Care Provider] - 12/13/22 8:00 am (WITH Nicole MOISE) Diet: Regular Addtl Attending Provider Instructions: You have been hospitalized for an acute medical problem. During your stay at [facility], we have made an effort to correct the problem that brought you to the hospital while keeping you as comfortable as possible. Medications were used to bring your condition under control and your discharge instructions will include directions for any medications you should take after leaving the hospital. Please make sure you see your Primary Care Provider as part of your follow up plan. Recommend repeat chest x ray in 4 weeks. Recommend [facility] General surgery in 1-2 weeks. Pending Studies at Discharge: No Stand-Alone Forms: My [facility] Surreal Ink, Smoking Cessation Medications and DC Order Prescriptions: Continued estradiol 0.01 % (0.1 mg/gram) cream 1 g vaginal .COMPLEX Qty: 42.5 2RF Rx Instructions: 1 g vaginal Twice Weekly famotidine 40 mg tablet See Rx Instructions .ROUTE .COMPLEX Qty: 90 3RF Dose Instruction: TAKE ONE TABLET BY MOUTH ONCE DAILY Rx Instructions: TAKE ONE TABLET BY MOUTH ONCE DAILY cyclobenzaprine 10 mg tablet 10 mg PO HS PRN (Reason: muscle spasm) Qty: 30 2RF propranolol 80 mg capsule,extended release 24hr 80 mg PO DAILY Qty: 30 3RF sumatriptan succinate 100 mg tablet See Rx Instructions PO .COMPLEX Qty: 18 1RF Rx Instructions: take 1 tab at onset of headache; if no relief may repeat 1 tab in 2hr; max = 2 tabs/24 hrs PO diphenhydramine HCl 25 mg tablet 25 mg PO PRN riboflavin (vitamin B2) 1 tab PO DAILY cholecalciferol (vitamin D3) 1 cap PO DAILY coenzyme Q10 100 mg capsule 100 mg PO DAILY Mirena 20 mcg/24 hours (7 yrs) 52 mg intrauterine device 1 device intrauterine CONTINOUS topiramate 100 mg tablet 50 mg PO DAILY oxycodone-acetaminophen [Percocet] 5-325 mg tablet 1 tab PO Q4H PRN (Reason: pain) Qty: 18 0RF multivitamin Tablet 1 tab PO DAILY metronidazole 500 mg tablet 500 mg PO TID Qty: 11 0RF ciprofloxacin HCl 500 mg tablet 500 mg PO BID Qty: 7 0RF Discharge Orders: Discharge Order (Routine); Ordered 12/05/22 Ordered By: Ta Tello/Other Patient Handouts: Romaine Rojas Drain Tube Dc Admission Data Admit Date/Time: 11/28/22 08:47 Attending Provider: Ta Nowak Admit Provider: Rambo Norman Primary Care Provider: Jose Disla Other Providers: Rambo Norman ; Hector Ramirez Vyacheslav Other Interventions: Discharge Summary Assessment (RN) Last Done: 12/05/22 15:07 Coding Level of Care Code HOSP INP/OBS DISCH >30 MIN Diagnoses Pneumonia J18.9 Laterality: right Lung location: lower lobe of lung Pneumonia type: due to unspecified organism Abdominal pain R10.31 Abdominal location: right lower quadrant History of migraine Z86.69
== END 2022-12-05 18:00 | disposition home or self-care (01) | DRG 177 ==
LOC: ED 04:47 → 3E 08:47 → SUATTDRO 08:47 → 3E 09:59